=== PATIENT | male | born 1940 | race Two or more races ===

== ENCOUNTER 2018-03-05 21:27 | Inpatient (IN) | payer OTHER ==
[2018-03-05] MEDS ORDERED: SODIUM CHLORIDE 1,000 ML IV STA (22:02)
--- NOTE | 2018-03-05 22:09 | PDOC ---
Attending Attestation - Resident Resident Name: Giovany Blackwell - ED Attending Attestation I have performed the following: I have examined & evaluated the patient, The case was reviewed & discussed with the resident, I agree w/resident's findings & plan, Exceptions are as noted - HPI HPI: 03/05/18 22:07 77-year-old male brought in by ambulance after being found down in his residence. Last known well Monday. His daughter called a neighbor when the pt as not answering the phone pt does not recall what happened - Physicial Exam PE: 03/06/18 02:11 please see physical exam below 03/06/18 02:12 - Medical Decision Making 03/05/18 22:20 77 yo male BIBA with multiple abrasions to b/l knees,feet,face and chin head no scalp lac,left cheek ecchymosis,chin abrasion eyes che eomi dry mucus membranes neck no jvd c spine no c spine tenderness lungs cta b/l cvs [id number] abd flat,nontender ext + clubbing,cool hands and feet,scattered bruising to feet, large abrasions to b/l knees neuro pt is conversant and alert but very weak and has difficulty lifting his legs off the beds,able to hold up both arms with no drift skin scattered abrasions 03/06/18 01:12 ct scan head no acute intracranial pathology,no skull fracture cpk 14,000 rhabo positive troponin probable due to rhabdo, pt receiving hydration ct scan c spine -no fracture 03/06/18 01:24 imp : fall vs syncope /rhabdo ,dehydration/ pt admitted
--- NOTE | 2018-03-05 22:36 | PDOC ---
History of Present Illness - General Stated Complaint: FALL Time Seen by Provider: 03/05/18 21:50 History Source: Patient - History of Present Illness Initial Comments: 03/05/18 22:22 Patient is a 77M with history of HTN, CAD s/p CABG 20 years ago, recent onset of urinary incontinence here today after being found down this evening. Last known well was approximately 48 hours ago. Patient is unsure of what happened, but he was found naked by a neighbor on the floor. The daughter reports that he has been incontinent lately, and that patient likely slipped and fell on some urine. Patient is unable to give a history of why he fell, why he couldn't get up, and why he couldn't contact anyone. Patient does state that he had some pain in his lower abdomen, but that when away. Patient states that he now feels very weak. Endorses pain in his knees. Denies pain in hips. Past History - Past Medical History Allergies/Adverse Reactions: Allergies Allergy/AdvReac Type Severity Reaction Status Date / Time No Known Allergies Allergy Verified 03/05/18 22:47 Review of Systems - Review of Systems Comments:: 03/05/18 22:26 GENERAL/CONSTITUTIONAL: No fever or chills. No weakness. HEAD, EYES, EARS, NOSE AND THROAT: No change in vision. No sore throat. CARDIOVASCULAR: No chest pain or shortness of breath RESPIRATORY: No cough, wheezing, or hemoptysis. GASTROINTESTINAL: No nausea, vomiting, diarrhea or constipation. GENITOURINARY: No dysuria, +incontinence MUSCULOSKELETAL: +b/l knee pain No neck or back pain. SKIN: No rash NEUROLOGIC: No headache, vertigo, loss of consciousness, or change in strength/ sensation. ENDOCRINE: No increased thirst. No abnormal weight change HEMATOLOGIC/LYMPHATIC: No anemia, easy bleeding, or history of blood clots. ALLERGIC/IMMUNOLOGIC: No hives or skin allergy. *Physical Exam - Physical Exam Comments: 03/05/18 22:26 GENERAL: Awake, alert, oriented to self/place/year, does not know president, in no acute distress HEAD: Normocephalic, hematoma under left eye EYES: PERRLA, EOMI, sclera anicteric, conjunctiva clear ENT: Auricles normal inspection, hearing grossly normal, nares patent, oropharynx clear without exudates. Dry mucosa NECK: Normal ROM, supple, no lymphadenopathy, JVD, or masses, no midline tenderness LUNGS: No distress, speaks full sentences, clear to auscultation bilaterally HEART: Regular rate and rhythm, normal S1 and S2, no murmurs, rubs or gallops, peripheral pulses normal and equal bilaterally. ABDOMEN: Soft, nontender, normoactive bowel sounds. No guarding, no rebound. No masses EXTREMITIES: +abrasion over left lateral shoulder, +abrasion over each knee bilaterally. HIPS: No pain to palpation, no signs of trauma R KNEE: Abrasion over knee, ranges knee, tenderness bilaterally, neurovascularly intact distal to injury L KNEE: Abrasion over knee, ranges knee, tenderness bilaterally, neurovascularly intact distal to injury BACK: No midline tenderness, no signs of trauma NEUROLOGICAL: Cranial nerves II through XII grossly intact. Normal speech, no focal sensorimotor deficits SKIN: Warm, Dry, normal turgor, no rashes or lesions noted. ED Treatment Course - LABORATORY CBC & Chemistry Diagram: 03/05/18 23:14 03/05/18 23:14 - RADIOLOGY Radiology Studies Ordered: Category Date Time Status CERVICAL SPINE CT W/O CONTR [CT] Stat CT Scan 03/05/18 22:[address] W/O CONTRAST [CT] Stat CT Scan 03/05/18 22:[address] WITHOUT CONTRAST [CT] Stat CT Scan 03/05/18 22:03 Ordered CHEST X-RAY PORTABLE* [RAD] Stat Radiology 03/05/18 22:02 Ordered KNEE 3 POS-LEFT [RAD] Stat Radiology 03/05/18 22:03 Ordered KNEE 3 POS-RIGHT [RAD] Stat Radiology 03/05/18 22:03 Ordered Medical Decision Making - Medical Decision Making 03/05/18 22:36 Patient is 77M with history of HTN, CAD s/p CABG, urinary incontinence found down. Vitals normal and stable. Minor trauma, cannot definitely clear CT. Takes aspirin, no other blood thinners, cannot clear head. Cause of fall/found down unclear, ddx includes, but is not limited to: syncope, acs, uti, rhabdo. Will do cardiac workup, head/neck/face ct, cxr, ekg, x-rays of knees, admit. 03/05/18 23:04 EKG shows sinus rhythm with rate of 88. 1st degree AV block with DE of 240. LAFB pattern. RBBB pattern with QRS of 122. ST Depression in V3. No st elevations. No prior EKGs available to compare. 03/05/18 23:[address] Patrick, pending labs, imaging results, and admission to hospitalist. *DC/Admit/Observation/Transfer Diagnosis at time of Disposition: Fall - Discharge Dispostion Condition at time of disposition: Stable - Referrals Referrals: Deepthi Coats MD [Primary Care Provider] - - Patient Instructions - Post Discharge Activity
[2018-03-05 23:53] LABS: BASO % 0.2 % (0-2.0); EOS % 0.1 % (0-4.5); HEMATOCRIT 54.5 % (35.4-49); HEMOGLOBIN 17.9 GM/dL (11.7-16.9); LYMPH % 6.1 % (8-40); MCH 30.7 pg (25.7-33.7); MCHC 32.9 g/dl (32.0-35.9); MEAN CELL VOLUME 93.2 fl (80-96); MEAN PLT VOLUME 9.2 fl (7.5-11.1); MONO % 8.9 % (3.8-10.2); NEUT % 84.7 % (42.8-82.8); PLATELET COUNT 162 K/MM3 (134-434); RBC 5.85 M/mm3 (4.00-5.60); RDW 14.6 % (11.9-15.9); WHITE BLOOD COUNT 15.6 K/mm3 (4.0-10.0)
[2018-03-06 00:21] LABS: INR 1.11 (0.83-1.09); PROTHROMBIN TIME (PATIENT) 13.1 SEC (9.7-13.0)
[2018-03-06 00:37] LABS: ALBUMIN 3.9 g/dl (3.4-5.0); ALK PHOS 78 U/L (45-117); ANION GAP 12 MMOL/L (8-16); BLOOD UREA NITROGEN 34 mg/dL (7-18); CALCIUM 9.9 mg/dL (8.5-10.1); CHLORIDE 91 mmol/L (98-107); CO2 29 mmol/L (21-32); CREATININE 0.9 mg/dL (0.55-1.3); GLUCOSE,RANDOM 125 mg/dL (74-106); POTASSIUM 4.8 mmol/L (3.5-5.1); SGOT/AST 564 U/L (15-37); SGPT/ALT 89 U/L (13-61); SODIUM 131 mmol/L (136-145); TOT PROT 7.3 g/dl (6.4-8.2)
[2018-03-06] MEDS ORDERED: SODIUM CHLORIDE 1,000 ML IV STA (00:42)
[2018-03-06] MEDS ORDERED: ACETAMINOPHEN 1000 MG/100 ML VIAL (NON FORMULARY) IVPB ONE (01:54)
[2018-03-06 02:01] LABS: URINE APPEARANCE CLEAR; URINE BILIRUBIN NEGATIVE (<2.0 mg/dL); URINE COLOR YELLOW; URINE GLUCOSE (UA) NEGATIVE (NEGATIVE); URINE KETONE TRACE (NEGATIVE); URINE LEUK ESTERASE NEGATIVE (NEGATIVE); URINE NITRITE NEGATIVE (NEGATIVE); URINE PROTEIN 3+ (NEGATIVE); URINE UROBILINOGEN NEGATIVE mg/dL (0.2-1.0)
[2018-03-06] MEDS ORDERED: ACETAMINOPHEN INJECTION 100 ML IVPB ONE (02:03)
[2018-03-06 02:05] LABS: EPI CELLS RARE /HPF (FEW); URINE BACTERIA RARE /hpf (NONE SEEN); URINE HYALINE CAST 7 /lpf; URINE MUCUS RARE
--- NOTE | 2018-03-06 02:17 | PDOC ---
*Physical Exam - Vital Signs Last Vital Signs Temp Pulse Resp BP Pulse Ox 98.3 F 70 17 117/83 98 03/05/18 23:00 03/05/18 23:00 03/05/18 23:00 03/05/18 23:00 03/06/18 00:00 - Physical Exam Comments: 03/06/18 03:50 General Appearance: Nourished. No Apparent Distress HEENT: EOMI, AASHISH. Hematoma under the left eye. No Pharyngeal Erythema, Tonsillar Exudate, Tonsillar Erythema Neck: No Cervical Lymphadenopathy Respiratory/Chest: Lungs Clear, Normal Breath Sounds. No Crackles, Rales, Rhonchi, Wheezing Cardiovascular: Regular Rhythm, Regular Rate. No Murmur, Gallops, Rubs Gastrointestinal/Abdominal: Normal Bowel Sounds, Soft. No Guarding, Rebound, Tenderness Musculoskeletal: No CVA Tenderness Extremity: Multiple abrasions to the extremities noted. Normal Capillary Refill Integumentary: Normal Color, Dry, Warm Neurologic: manager costing II-XII NML intact, Fully Oriented, Alert, Normal Mood/Affect, Normal Response, ED Treatment Course - LABORATORY CBC & Chemistry Diagram: 03/05/18 23:14 03/05/18 23:14 - ADDITIONAL ORDERS Additional order review: Laboratory Results 03/06/18 03/05/18 03/05/18 01:44 23:14 23:14 PT with INR 13.10 H INR 1.11 H Sodium 131 L Potassium 4.8 Chloride 91 L Carbon Dioxide 29 Anion Gap 12 BUN 34 H Creatinine 0.9 Creat Clearance w eGFR > 60 Random Glucose 125 H Calcium 9.9 Magnesium 3.0 H Total Bilirubin 2.0 H AST 564 H ALT 89 H Alkaline Phosphatase 78 Creatine Kinase 17751 H Creatine Kinase Index 0.6 CK-MB (CK-2) 126 H Troponin I 0.64 H* Total Protein 7.3 Albumin 3.9 Urine Color Yellow Urine Appearance Clear Urine pH 5.0 Ur Specific [place] 1.020 Urine Protein 3+ H Urine Glucose (UA) Negative Urine Ketones Trace H Urine Blood 3+ H Urine Nitrite Negative Urine Bilirubin Negative Urine Urobilinogen Negative Ur Leukocyte Esterase Negative Urine WBC (Auto) 15 Urine RBC (Auto) 2 Ur Epithelial Cells Rare Urine Bacteria Rare Hyaline Casts 7 Urine Mucus Rare 03/05/18 23:14 RBC 5.85 H MCV 93.2 MCHC 32.9 RDW 14.6 MPV 9.2 Neutrophils % 84.7 H Lymphocytes % 6.1 L Monocytes % 8.9 Eosinophils % 0.1 Basophils % 0.2 - Medications Given in the ED: ED Medications Discontinued Medications Generic Name Dose Route Start Last Admin Trade Name Trisha PRN Reason Stop Dose Admin Acetaminophen 1,000 mg 03/06/18 01:54 03/06/18 02:10 Ofirmev Injection - IVPB 03/06/18 01:55 1,000 mg ONCE ONE Administration Sodium Chloride 1,000 mls @ 1,000 mls/hr 03/05/18 22:02 03/05/18 23:00 Normal Saline - IV 03/05/18 23:01 1,000 mls/hr ASDIR STA Administration Progress Note - Progress Note Progress Note: The patient is a 77 year old male who presents for evaluation following being found on the floor after a fall. Lab results and CT imaging are pending. Likely admission. Medical Decision Making - Medical Decision Making 03/06/18 03:52 CBC demonstrates an elevated wbc to 15. [place] [address]. Troponin is elevated to 0.6. It is likely the patient has rhabdomyolysis and will require admission for further management. We will continue to treat with iv fluids. We discussed the case with the admitting team who accepted the patient for admission. *DC/Admit/Observation/Transfer Diagnosis at time of Disposition: Fall - Discharge Dispostion Condition at time of disposition: Stable Decision to Admit order: Yes - Referrals - Patient Instructions - Post Discharge Activity
--- NOTE | 2018-03-06 03:43 | HP ---
CHIEF COMPLAINT: Fall PCP: HISTORY OF PRESENT ILLNESS: Patient is a 77 year old male with history of hypertension, coronary artery disease s/p CABG in 1989, hyperlipidemia, diabetes mellitus presents after a fall. He states he was in the bathroom, having got out of the shower, felt hip pain radiating to the back, and b/l lower extremity weakness. He tried to hold on to the wall, and slid down onto the floor where he states he remained for two days until he was able to crawl to kitchen, prop himself up with the refrigerator door handle, and call 911. He denies prior occurrence of a fall. Admitted to a "light" chest pain that prompted him to reach for an aspirin and "medicine under the tongue." Denies lightheadedness, dizziness, palpitations preceding the fall. According to EMS the patient's neighbor who has keys to his house was the one to call 911. States last well known time was yesterday evening at dinnertime. ER course was notable for: (1) EKG sinus rhythm at 88bpm, LAD, 1st degree AV guillermo, RBBB. Troponin 0.64 (2) [place] [address] (3) IV normal saline PAST MEDICAL HISTORY: hypertension, coronary artery disease s/p CABG in 1989, hyperlipidemia, diabetes mellitus PAST SURGICAL HISTORY: CABG 1989 Social History: Smoking: former smoker Alcohol: denies Drugs: denies Family History: Allergies No Known Allergies Allergy (Verified 03/05/18 22:47) HOME MEDICATIONS: Home Medications Medication Instructions Recorded Ascorbic Acid [Vitamin C -] 1,000 mg PO DAILY 03/06/18 Aspirin [ASA -] 81 mg PO DAILY 03/06/18 Cholecalciferol (Vitamin D3) 2,000 unit PO DAILY 03/06/18 [Vitamin D3 -] Dorzolamide/Timolol/Pf [Timolol 10 ml OP DAILY 03/06/18 0.5%-Dorzolamide 2%] Lisinopril [Prinivil -] 40 mg PO DAILY 03/06/18 Metformin HCl [Metformin HCl ER] 500 mg PO DAILY 03/06/18 Metoprolol Succinate [Toprol Xl] 25 mg PO DAILY 03/06/18 Pravastatin Sodium 10 mg PO DAILY 03/06/18 Vitamin B-12 500 mcg PO DAILY 03/06/18 REVIEW OF SYSTEMS CONSTITUTIONAL: Absent: fever, chills, diaphoresis, generalized weakness, malaise, loss of appetite, weight change HEENT: Absent: rhinorrhea, nasal congestion, throat pain, throat swelling, difficulty swallowing, mouth swelling, ear pain, eye pain, visual changes CARDIOVASCULAR: Absent: chest pain, syncope, palpitations, irregular heart rate, lightheadedness , peripheral edema RESPIRATORY: Absent: cough, shortness of breath, dyspnea with exertion, orthopnea, wheezing, stridor, hemoptysis GASTROINTESTINAL: Absent: abdominal pain, abdominal distension, nausea, vomiting, diarrhea, constipation, melena, hematochezia GENITOURINARY: Absent: dysuria, frequency, urgency, hesitancy, hematuria, flank pain, genital pain MUSCULOSKELETAL: Admits: back pain, hip pain, knee pain. SKIN: Absent: rash, itching, pallor HEMATOLOGIC/IMMUNOLOGIC: Absent: easy bleeding, easy bruising, lymphadenopathy, frequent infections ENDOCRINE: Absent: unexplained weight gain, unexplained weight loss, heat intolerance, cold intolerance NEUROLOGIC: Admits: lower extremity weakness. Absent: headache, paresthesias, dizziness, unsteady gait, seizure, mental status changes, bladder or bowel incontinence PSYCHIATRIC: Absent: anxiety, depression, suicidal or homicidal ideation, hallucinations. PHYSICAL EXAMINATION Vital Signs - 24 hr 03/05/18 03/06/18 23:00 00:00 Temperature 98.3 F Pulse Rate 70 Respiratory 17 Rate Blood Pressure 117/83 O2 Sat by Pulse 98 98 Oximetry (%) GENERAL: Awake, alert, oriented to person, place, time in no acute distress. HEAD: Normocephalic. Bruising noted over left cheek. EYES: Pupils equal, round and reactive to light, extraocular movements intact without nystagmus b/l. sclera anicteric, conjunctiva clear b/l. EARS, NOSE, THROAT: Dry mucous membranes. Thrush noted on tongue. NECK: Supple without lymphadenopathy, JVD. LUNGS: Breath sounds equal, clear to auscultation bilaterally. No wheezes, and no crackles. No accessory muscle use. HEART: Regular rate and rhythm, normal S1 and S2 without murmur, rub or gallop. ABDOMEN: Soft, nontender, not distended, normoactive bowel sounds, no guarding, no rebound, no masses. No hepatomegaly or splenomegaly. MUSCULOSKELETAL: Diminished range of motion at b/l lower extremities. Tenderness to palpation b/l knees. No bony step-off or point tenderness along cervical thoracic, or lumbar spine. Painful passive knee flexion, extension b/ l. UPPER EXTREMITIES: 2+ radial pulses b/l. Strength 4/5 b/l upper extremities in flexion, extension, abduction, adduction. LOWER EXTREMITIES: 2+ dorsalis pedis pulses b/l. No calf tenderness. No peripheral edema. Strength 1/5 left lower extremity, strength 2/5 right lower extremity for hip flexion, extension, knee flexion, extension. NEUROLOGICAL: Cranial nerves II-XII intact. Normal speech. PSYCHIATRIC: Cooperative. Good eye contact. Appropriate mood and affect. SKIN: Bruising and scratches along b/l medial knees. Laboratory Results - last 24 hr 03/05/18 03/05/18 03/05/18 23:14 23:14 23:14 WBC 15.6 H RBC 5.85 H Hgb 17.9 H Hct 54.5 H MCV 93.2 MCH 30.7 MCHC 32.9 RDW 14.6 Plt Count 162 MPV 9.2 Absolute Neuts (auto) 13.2 H Neutrophils % 84.7 H Lymphocytes % 6.1 L Monocytes % 8.9 Eosinophils % 0.1 Basophils % 0.2 Nucleated RBC % 0 PT with INR 13.10 H INR 1.11 H Sodium 131 L Potassium 4.8 Chloride 91 L Carbon Dioxide 29 Anion Gap 12 BUN 34 H Creatinine 0.9 Creat Clearance w eGFR > 60 Random Glucose 125 H Calcium 9.9 Magnesium 3.0 H Total Bilirubin 2.0 H AST 564 H ALT 89 H Alkaline Phosphatase 78 Creatine Kinase 81825 H Creatine Kinase Index 0.6 CK-MB (CK-2) 126 H Troponin I 0.64 H* Total Protein 7.3 Albumin 3.9 Urine Color Urine Appearance Urine pH Ur Specific [place] Urine Protein Urine Glucose (UA) Urine Ketones Urine Blood Urine Nitrite Urine Bilirubin Urine Urobilinogen Ur Leukocyte Esterase Urine WBC (Auto) Urine RBC (Auto) Ur Epithelial Cells Urine Bacteria Hyaline Casts Urine Mucus 03/05/18 03/06/18 23:14 01:44 WBC RBC Hgb Hct MCV MCH MCHC RDW Plt Count MPV Absolute Neuts (auto) Neutrophils % Lymphocytes % Monocytes % Eosinophils % Basophils % Nucleated RBC % PT with INR INR Sodium Potassium Chloride Carbon Dioxide Anion Gap BUN Creatinine Creat Clearance w eGFR Random Glucose Calcium Magnesium Total Bilirubin AST ALT Alkaline Phosphatase Creatine Kinase Creatine Kinase Index 0.6 CK-MB (CK-2) 126 H Troponin I Total Protein Albumin Urine Color Yellow Urine Appearance Clear Urine pH 5.0 Ur Specific [place] 1.020 Urine Protein 3+ H Urine Glucose (UA) Negative Urine Ketones Trace H Urine Blood 3+ H Urine Nitrite Negative Urine Bilirubin Negative Urine Urobilinogen Negative Ur Leukocyte Esterase Negative Urine WBC (Auto) 15 Urine RBC (Auto) 2 Ur Epithelial Cells Rare Urine Bacteria Rare Hyaline Casts 7 Urine Mucus Rare IMAGING: CT head- negative for acute intracranial hemorrhage CT cervical spine- negative for cervical spine fracure Facial CT- negative for fracture within facial bones ASSESSMENT/PLAN: Patient is a 77 year old male with history of hypertension, coronary artery disease s/p CABG in 1989, hyperlipidemia, diabetes mellitus presents after a fall. Rhabdomyolysis -Patient is s/[place] [address] -UA shows 3+ blood, however only 2 RBC, likely d/t myoglobin. -Polycythemia, leukocytosis likely due to dehydration, secondary to rhabdomyolysis -IV normal saline at 150mL/hour -Strict intake and output -F/U urine myoglobin -F/U creatine kinase Q6H -F/U CMP Q12H Syncopal episode -Unclear etiology. Patient endorsed hip pain radiating to lower back at time of weakness and fall. -F/U xray b/l knees -F/U radiograph b/l hips -Physical therapy consult -Can consider carotid doppler Chest pain, troponinemia -Likely demand ischemia vs. acute coronary syndrome -EKG showed sinus rhythm at 88bpm, LAD, 1st degree AV guillermo with RI interval at 240, RBBB. -Troponin 0.64 CK-MB 126 -Trend cardiac profile -Cardiac ECHO -Cardiology consult Dr. Hoffmann -Cardiac monitoring Transaminitis -AST 564, ALT 89, Alkaline phosphatsae 78. -AST elevation likely secondary to rhabdomyolysis. -F/U RUQ ultrasound -F/U CMP, direct and indirect bilirubin -F/U lipase Coronary artery disease -Continue aspirin 81mg PO daily Diabetes mellitus -Hold home oral medications -ISS ACHS -BGM ACHS -F/U HbA1c Hyperlipidemia -Hold statins d/t rhabdomyolysis Hypertension -Continue Metoprolol 25mg PO daily FEN -IV normal saline at 150mL/hour -Hyponatremia. Follow CMP -Diabetic diet Prophylaxis -Heparin 5000u subq TID Disposition -Admit to telemetry for care Visit type - Emergency Visit Emergency Visit: Yes ED Registration Date: 03/06/18 Care time: The patient presented to the Emergency Department on the above date and was hospitalized for further evaluation of their emergent condition. - New Patient This patient is new to me today: Yes Date on this admission: 03/06/18 - Critical Care Critical Care patient: No
--- NOTE | 2018-03-06 04:03 | PN ---
Teaching Attending Note Name of Resident: Constanza Woo ATTENDING PHYSICIAN STATEMENT I saw and evaluated the patient. I reviewed the resident's note and discussed the case with the resident. I agree with the resident's findings and plan as documented. SUBJECTIVE: Patient s a 77 y/o HM with a PMH as stated who presents to the hospital after being down on the floor. He provides a different history than we got from EMS; EMS states that he was last seen normal last night and was found this afternoon prior to coming to the ER down at home by his neighbor who had a smith to his place. The patient, however, tells me that he was down for 2 days and that he pulled himself up and called himself; he also relays an unclear history of taking an aspirin and a "medication that goes under his tongue". He is AAO and doesn't appear acutely confused. He has red urine. He has elevated LFTs, elevated CK >958[address]. He complains of weakness. The method of his fall is described as hip pain radiating up through his back causing him to loose balance and slide down a wall bracing himself with his R-side. He denies losing consciousness or hitting his head. He denied any chest pain to me, but he did admit to it to the resident on their initial assessment. Still complains of some hip pain worse with moving. PMH: CAD s/p remote CABG, HTN, HLD, DM PSH: CABG Social: Lives at home, gets help from neighbor who has smith, denies EtOh FH: Asked and noncontributory OBJECTIVE: VSS, labs and imaging reviewed NAD, resting in bed, tacky MMs RRR s1/2 no mgr NT ND neg. calero's sign no HSM Sym CW expansion, no focal findings Some abrasions and bruising scattered, no naren lacs or mottling ASSESSMENT AND PLAN: 1) Acute Rhabdomyolysis -Secondary to his fall; was down for >12 but <24 hours; will need to speak with likely neighbor vs. family to get the whole story. -Got 2L bolus in the ER; set NS to 150 and monitor Is and Os trying to make I= O. Trend CK Q6H; trend CMP BID. Check Urine Mb. -No renal compromise now. -Hold statin 2) ?chest pain? with elevated troponin -Elevated trop likely due to #1 and demand from this process, but given the ? history of chest pain will need further analysis -Monitor troponin, monitor telemetry. I doubt that this represents a primary ischemic event. Will defer ultimate management to cardiology; if their services are deemed necessary will consult in the morning 3) Weakness and Fall with Hip Pain -Negative knee XR, checking hip XR -Consulting PT 4) Transaminitis -AST/ALT grossly elevated (AST moreso). This is likely secondary to rhabdo, and literature shows AST is more profoundly elevated in rhabdo than ALT. Plan on fractionating the bili, trending the CMP, checking RUQ US. Will also add on a lipase. 5) Hyponatremia -Likely 2/2 dehydration and rhabdo; trend CMP and giving IVF for #1. No neuro s /s with this. 6) Hypermagnesemia -Due to #1/dehydration. Trend Mg. Weakness may have some contribution from high Mg. 7) Syncope/syncope-like event -The way he described it to me he had pain resulting in temporary weakness which lead him to fall down. No rotational motion noted, no focal neuro signs, no tinnitus, no confusion, no seizure like activity. No high degree AV block seen on EKG. Will monitor on tele, check an echo. No repeated sx. assciated with neck motion so can hold off for now with carotid duplex but it should be a consideration if this keeps happening. Check XR hip to ensure no underlying bony pathology. 8) CAD s/p remote CABG -Continue home medications except statin 9) HLD -Hold statin until DC 10) HTN -Confirm meds; monitor and keep <160mmHg while inpatient. 11) DM -SSI; resume home meds prior to DC FENA -NS@150 -Monitor and replete PRN -Cardiac, diabetic -As tolerated Full Code
[2018-03-06] MEDS: SODIUM CHLORIDE 1,000 ML IV SCH ×2 (04:27→18:41)
[2018-03-06] MEDS ORDERED: HEPARIN NA (PORCINE) 5,000 UNITS/ML 1ML VIAL ONE (06:05)
[2018-03-06] MEDS: HEPARIN NA (PORCINE) 5,000 UNITS/ML 1ML VIAL SQ SCH ×3 (06:17→21:12)
[2018-03-06] MEDS: INSULIN SLIDING SCALE (NOVOLOG) 1 VIAL SQ SCH ×3 (06:17→21:27)
[2018-03-06 06:18] LABS: HEMATOCRIT 49.1 % (35.4-49); HEMOGLOBIN 16.1 GM/dL (11.7-16.9); MCH 30.6 pg (25.7-33.7); MCHC 32.8 g/dl (32.0-35.9); MEAN CELL VOLUME 93.3 fl (80-96); MEAN PLT VOLUME 9.2 fl (7.5-11.1); PLATELET COUNT 134 K/MM3 (134-434); RBC 5.26 M/mm3 (4.00-5.60); RDW 14.4 % (11.9-15.9); WHITE BLOOD COUNT 12.6 K/mm3 (4.0-10.0)
[2018-03-06 06:50] LABS: ALBUMIN 3.4 g/dl (3.4-5.0); ALK PHOS 70 U/L (45-117); ANION GAP 11 MMOL/L (8-16); BLOOD UREA NITROGEN 32 mg/dL (7-18); CALCIUM 8.7 mg/dL (8.5-10.1); CHLORIDE 97 mmol/L (98-107); CO2 25 mmol/L (21-32); CREATININE 0.7 mg/dL (0.55-1.3); GLUCOSE,RANDOM 103 mg/dL (74-106); MAGNESIUM 2.6 mg/dL (1.8-2.4); PHOSPHOROUS 3.5 mg/dL (2.5-4.9); SGOT/AST 467 U/L (15-37); SGPT/ALT 78 U/L (13-61); SODIUM 133 mmol/L (136-145); TOT PROT 6.3 g/dl (6.4-8.2)
[2018-03-06 06:51] LABS: BILIRUBIN,DIRECT 0.5 mg/dL (0.0-0.2)
[2018-03-06 06:56] LABS: POTASSIUM 4.4 mmol/L (3.5-5.1)
[2018-03-06] MEDS ORDERED: PATIENT'S OWN MEDICATION (NON-FORMULARY) (Dorzolamide/Timolol/Pf [Timolol 0.5%-Dorzolamide OP SCH (10:00)
[2018-03-06] MEDS: ASPIRIN 81 MG CHEWABLE TABLETS PO SCH (10:08)
[2018-03-06] MEDS: TIMOLOL 0.5% OPHTHALMIC SOL 5 ML BOTTLE OU SCH (10:08)
[2018-03-06] MEDS: metoPROLOL SUCCINATE 25 MG TAB.SR.24H (FP) PO SCH (10:08)
[2018-03-06] MEDS: DORZOLAMIDE 2% HCL OPHTHALMIC SOLUTION 10 ML BOTTLE OU SCH (10:09)
--- NOTE | 2018-03-06 11:46 | ECHO ---
Name: JUDITH PATEL Exam:Adult Echocardiogram Study Date: 03/06/2018 09:48 AM Age: 77 yrs Reason For Study: Chest pain Height: 64 in Weight: 145 lb BSA: 1.7 m2 MMode/2D Measurements & Calculations IVSd: 1.1 cm Ao root diam: 3.1 cm LVIDd: 3.0 cm LVIDs: 2.2 cm LVPWd: 1.1 cm EDV(Teich): 35.2 ml LVOT diam: 1.8 cm ESV(Teich): 16.0 ml RV S Lj: 7.4 cm/sec Doppler Measurements & Calculations PI end-d lj: 167.5 cm/sec Med Peak E' Lj: 6.3 cm/sec Lat Peak E' Lj: 10.6 cm/sec Procedure A two-dimensional transthoracic echocardiogram with color flow and Doppler was performed. The study w as technically difficult with many images being suboptimal in quality. The patient was in atrial flutter during the exam. Left Ventricle The left ventricle is normal in size. Left ventricular systolic function is normal. Ejection Fraction = 55%. Right Ventricle The right ventricle is grossly normal size. The right ventricular systolic function is grossly normal . Atria The left atrium is mildly dilated. The right atrium is mildly dilated. Mitral Valve The mitral valve is normal. There is trace mitral regurgitation. Tricuspid Valve The tricuspid valve is normal. There is trace tricuspid regurgitation. Aortic Valve The aortic valve opens well. The aortic valve is not well visualized. Mild aortic regurgitation. Pulmonic Valve The pulmonic valve is not well seen, but is grossly normal. Trace pulmonic valvular regurgitation. Great Vessels The aortic root is not well visualized but is probably normal size. Pericardium/Pleura There is no pericardial effusion. Interpretation Summary Left ventricular systolic function is normal. The right ventricular systolic function is grossly normal. The left atrium is mildly dilated. The right atrium is mildly dilated. There is trace mitral regurgitation. There is trace tricuspid regurgitation. Mild aortic regurgitation. Trace pulmonic valvular regurgitation. There is no pericardial effusion. MD Crescencio Jefferson 03/06/2018 11:46 AM
--- NOTE | 2018-03-06 12:51 | EKG ---
Test Reason : Blood Pressure : / mmHG Vent. Rate : 088 BPM Atrial Rate : 088 BPM P-R Int : 240 ms QRS Dur : 122 ms QT Int : 400 ms P-R-T Axes : 000 -76 047 degrees QTc Int : 484 ms SINUS RHYTHM WITH 1ST DEGREE A-V BLOCK WITH PREMATURE SUPRAVENTRICULAR COMPLEXES RIGHT BUNDLE BRANCH BLOCK LEFT ANTERIOR FASCICULAR BLOCK BIFASCICULAR BLOCK SEPTAL INFARCT (CITED ON OR BEFORE 05-MAR-2018) ABNORMAL ECG Confirmed by MD ARIE, SIDDHARTHA ([id number]) on 03/06/2018 12:51:08 PM Referred By: Confirmed By:SIDDHARTHA SARGENT MD
--- NOTE | 2018-03-06 14:57 | PN ---
Teaching Attending Note Name of Resident: Sedrick Naidu ATTENDING PHYSICIAN STATEMENT I saw and evaluated the patient. I reviewed the resident's note and discussed the case with the resident. I agree with the resident's findings and plan as documented with exceptions below. SUBJECTIVE: Patient seen and examined. generalized soreness, more left thigh, reports fall on his left thigh. Currently denies any chest pain, dizziness, palpitations, headache or concerns. OBJECTIVE: Vital Signs Period Temp Pulse Resp BP Sys/Becerril Pulse Ox Last 24 Hr 98.3 F 68-76 17-18 117-141/68-83 98-100 Intake & Output 03/03/18 03/04/18 03/05/18 03/06/18 23:59 23:59 23:59 23:59 Weight 145 lb General: lying in bed in no acute distress HEENT: chin abrasion, PERRL, EOMI, Neck: soft, supple, no JVD Extremities: bilateral knee abrasions, no pedal edema, positive pulses Musculoskeletal: no spinal tenderness, able to move bilateral feet without pain , bilateral LE movements free in bed, but elevation limited given left thigh pain, no left thigh tenderness or ecchymosis noted, passive ROM full at both hips Neuro: AAOX3, power UE 5/5, LE, feet 5/5, thigh movements limited by pain L>R, facial symmetry, tongue midline, gait deferred Home Medications Medication Instructions Recorded Ascorbic Acid [Vitamin C -] 1,000 mg PO DAILY 03/06/18 Aspirin [ASA -] 81 mg PO DAILY 03/06/18 Cholecalciferol (Vitamin D3) 2,000 unit PO DAILY 03/06/18 [Vitamin D3 -] Dorzolamide/Timolol/Pf [Timolol 10 ml OP DAILY 03/06/18 0.5%-Dorzolamide 2%] Lisinopril [Prinivil -] 40 mg PO DAILY 03/06/18 Metformin HCl [Metformin HCl ER] 500 mg PO DAILY 03/06/18 Metoprolol Succinate [Toprol Xl] 25 mg PO DAILY 03/06/18 RX: Pravastatin Sodium 10 mg PO DAILY 03/06/18 Vitamin B-12 500 mcg PO DAILY 03/06/18 Active Medications Aspirin (Asa -) 81 mg PO DAILY [facility] Last Admin: 03/06/18 10:08 Dose: 81 mg Dorzolamide HCl (Trusopt 2%) 1 drop OU DAILY [facility] Last Admin: 03/06/18 10:09 Dose: Not Given Heparin Sodium (Porcine) (Heparin -) 5,000 unit SQ TID [facility] Last Admin: 03/06/18 14:40 Dose: 5,000 unit Sodium Chloride (Normal Saline -) 1,000 mls @ 150 mls/hr IV ASDIR [facility] Last Admin: 03/06/18 04:27 Dose: 150 mls/hr Insulin Aspart (Novolog Vial Sliding Scale -) 1 vial SQ ACHS [facility]; Protocol Last Admin: 03/06/18 13:12 Dose: Not Given Metoprolol Succinate (Toprol Xl -) 25 mg PO DAILY [facility] Last Admin: 03/06/18 10:08 Dose: 25 mg Timolol Maleate (Timoptic 0.5%) 1 drop OU DAILY [facility] Last Admin: 03/06/18 10:08 Dose: Not Given Laboratory Results - last 24 hr 03/05/18 03/05/18 03/05/18 23:14 23:14 23:14 WBC 15.6 H RBC 5.85 H Hgb 17.9 H Hct 54.5 H MCV 93.2 MCH 30.7 MCHC 32.9 RDW 14.6 Plt Count 162 MPV 9.2 Absolute Neuts (auto) 13.2 H Neutrophils % 84.7 H Lymphocytes % 6.1 L Monocytes % 8.9 Eosinophils % 0.1 Basophils % 0.2 Nucleated RBC % 0 PT with INR 13.10 H INR 1.11 H Sodium 131 L Potassium 4.8 Chloride 91 L Carbon Dioxide 29 Anion Gap 12 BUN 34 H Creatinine 0.9 Creat Clearance w eGFR > 60 POC Glucometer Random Glucose 125 H Hemoglobin A1c % Calcium 9.9 Phosphorus Magnesium 3.0 H Total Bilirubin 2.0 H Direct Bilirubin AST 564 H ALT 89 H Alkaline Phosphatase 78 Creatine Kinase 35471 H Creatine Kinase Index 0.6 CK-MB (CK-2) 126 H Troponin I 0.64 H* Total Protein 7.3 Albumin 3.9 Lipase Urine Color Urine Appearance Urine pH Ur Specific [place] Urine Protein Urine Glucose (UA) Urine Ketones Urine Blood Urine Nitrite Urine Bilirubin Urine Urobilinogen Ur Leukocyte Esterase Urine WBC (Auto) Urine RBC (Auto) Ur Epithelial Cells Urine Bacteria Hyaline Casts Urine Mucus 03/05/18 03/06/18 03/06/18 23:14 01:44 02:01 WBC RBC Hgb Hct MCV MCH MCHC RDW Plt Count MPV Absolute Neuts (auto) Neutrophils % Lymphocytes % Monocytes % Eosinophils % Basophils % Nucleated RBC % PT with INR INR Sodium Potassium Chloride Carbon Dioxide Anion Gap BUN Creatinine Creat Clearance w eGFR POC Glucometer Random Glucose Hemoglobin A1c % Calcium Phosphorus 3.4 Magnesium Total Bilirubin Direct Bilirubin AST ALT Alkaline Phosphatase Creatine Kinase Creatine Kinase Index 0.6 CK-MB (CK-2) 126 H Troponin I Total Protein Albumin Lipase Urine Color Yellow Urine Appearance Clear Urine pH 5.0 Ur Specific [place] 1.020 Urine Protein 3+ H Urine Glucose (UA) Negative Urine Ketones Trace H Urine Blood 3+ H Urine Nitrite Negative Urine Bilirubin Negative Urine Urobilinogen Negative Ur Leukocyte Esterase Negative Urine WBC (Auto) 15 Urine RBC (Auto) 2 Ur Epithelial Cells Rare Urine Bacteria Rare Hyaline Casts 7 Urine Mucus Rare 03/06/18 03/06/18 03/06/18 06:00 06:00 06:00 WBC 12.6 H RBC 5.26 Hgb 16.1 Hct 49.1 H MCV 93.3 MCH 30.6 MCHC 32.8 RDW 14.4 Plt Count 134 MPV 9.2 Absolute Neuts (auto) Neutrophils % Lymphocytes % Monocytes % Eosinophils % Basophils % Nucleated RBC % PT with INR INR Sodium 133 L Potassium 4.4 Chloride 97 L Carbon Dioxide 25 Anion Gap 11 BUN 32 H Creatinine 0.7 Creat Clearance w eGFR > 60 POC Glucometer Random Glucose 103 Hemoglobin A1c % Calcium 8.7 Phosphorus 3.5 Magnesium 2.6 H Total Bilirubin 2.0 H Direct Bilirubin AST 467 H ALT 78 H Alkaline Phosphatase 70 Creatine Kinase 25477 H Creatine Kinase Index 0.3 CK-MB (CK-2) 77.3 H Troponin I 0.67 H* Total Protein 6.3 L Albumin 3.4 Lipase Urine Color Urine Appearance Urine pH Ur Specific [place] Urine Protein Urine Glucose (UA) Urine Ketones Urine Blood Urine Nitrite Urine Bilirubin Urine Urobilinogen Ur Leukocyte Esterase Urine WBC (Auto) Urine RBC (Auto) Ur Epithelial Cells Urine Bacteria Hyaline Casts Urine Mucus 03/06/18 03/06/18 03/06/18 06:00 06:00 06:00 WBC RBC Hgb Hct MCV MCH MCHC RDW Plt Count MPV Absolute Neuts (auto) Neutrophils % Lymphocytes % Monocytes % Eosinophils % Basophils % Nucleated RBC % PT with INR INR Sodium Potassium Chloride Carbon Dioxide Anion Gap BUN Creatinine Creat Clearance w eGFR POC Glucometer Random Glucose Hemoglobin A1c % 6.4 H Calcium Phosphorus Magnesium Total Bilirubin Direct Bilirubin 0.5 H AST ALT Alkaline Phosphatase Creatine Kinase Cancelled Creatine Kinase Index Cancelled CK-MB (CK-2) Cancelled Troponin I Total Protein Albumin Lipase 267 Urine Color Urine Appearance Urine pH Ur Specific [place] Urine Protein Urine Glucose (UA) Urine Ketones Urine Blood Urine Nitrite Urine Bilirubin Urine Urobilinogen Ur Leukocyte Esterase Urine WBC (Auto) Urine RBC (Auto) Ur Epithelial Cells Urine Bacteria Hyaline Casts Urine Mucus 03/06/18 03/06/18 03/06/18 06:15 12:50 13:11 WBC RBC Hgb Hct MCV MCH MCHC RDW Plt Count MPV Absolute Neuts (auto) Neutrophils % Lymphocytes % Monocytes % Eosinophils % Basophils % Nucleated RBC % PT with INR INR Sodium Potassium Chloride Carbon Dioxide Anion Gap BUN Creatinine Creat Clearance w eGFR POC Glucometer 107.56967 104.39599 Random Glucose Hemoglobin A1c % Calcium Phosphorus Magnesium Total Bilirubin Direct Bilirubin AST ALT Alkaline Phosphatase Creatine Kinase 81124 H Creatine Kinase Index 0.4 CK-MB (CK-2) 53.4 H Troponin I Total Protein Albumin Lipase Urine Color Urine Appearance Urine pH Ur Specific [place] Urine Protein Urine Glucose (UA) Urine Ketones Urine Blood Urine Nitrite Urine Bilirubin Urine Urobilinogen Ur Leukocyte Esterase Urine WBC (Auto) Urine RBC (Auto) Ur Epithelial Cells Urine Bacteria Hyaline Casts Urine Mucus CXR/CT brain/C-spine/face/Hip/knee xrays results noted. ASSESSMENT AND PLAN: 77 yom with PMHx of CAD s/p CABG 1989, HTN, HLD, NIDDM, brought in ED after mechanical fall, being on the floor for 2 days. -Mechanical -Rhabdomyolysis from being on the floor for 2 days -Left thigh pain, suspect soft tissue injury, current exam and imaging not concerning for acute fracture -Multiple abrasions chin/knees/extremities -Elevated troponin, demand from above vs from significant rhabdomyolysis -HTN -HLD -CAD s/p CABG 1989 Plan: trauma w/u neg. PT eval and further imaging based on clinical course and activity level. Aggressive IVF, monitor CPK, renal function and volume status. Hold statin. Hold lisinopril, resume in 24 hours based on renal function, BP readings. Cardiology input. Check 2D echo. Trop overall unchanged Wound care for abrasions Fall precautions. DVTPPX with heparin. Dispo anticipate SNF on d,c in 2-3 days if CPK improves and no new concerns. Plan discussed with patient in detail, all questions answered.
--- NOTE | 2018-03-06 17:05 | CON.CARD ---
Consult Consult Specialty:: cardio - History of Present Illness Chief Complaint: fall History of Present Illness: 77 M here with mechanical fall. pt provides the following history: he recalls that he got out of the shower, when felt pain in bilateral hip regions. DENIES ANY BACK PAIN. the pain was NOT SEVERE, but both legs "felt ", completely numb and weak. He tried to hold on to the wall, and slid down onto the floor where he states he remained for two days until he was able to crawl to kitchen, prop himself up with the refrigerator door handle, and call 911. recalls trying to get up from floor but each time he did his legs felt weak and he fell back down. states that at no time did he have back pain or "tearing" sensation in abdomen, back or chest. says this location and quality of the pain in hips is different from usual spinal stenosis L spine pain he has. he currently can move both legs/feet and sensation feels intact he says. 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 denies any further cp here in hospital. no sob. noted to have very hi CPK and mildly elevated troponin here PMH: s/p CABG 1989, ? chronic anginal sx (equivocal sx's) HTN HPL - Smoking History Smoking history: Never smoked Home Medications - Allergies Allergies/Adverse Reactions: Allergies Allergy/AdvReac Type Severity Reaction Status Date / Time No Known Allergies Allergy Verified 03/05/18 22:47 - Home Medications Home Medications: Ambulatory Orders Ascorbic Acid [Vitamin C -] 1,000 mg PO DAILY 03/06/18 Aspirin [ASA -] 81 mg PO DAILY 03/06/18 Cholecalciferol (Vitamin D3) [Vitamin D3 -] 2,000 unit PO DAILY 03/06/18 Dorzolamide/Timolol/Pf [Timolol 0.5%-Dorzolamide 2%] 10 ml OP DAILY 03/06/18 Lisinopril [Prinivil -] 40 mg PO DAILY 03/06/18 Metformin HCl [Metformin HCl ER] 500 mg PO DAILY 03/06/18 Metoprolol Succinate [Toprol Xl] 25 mg PO DAILY 03/06/18 Pravastatin Sodium 10 mg PO DAILY 03/06/18 Vitamin B-12 500 mcg PO DAILY 03/06/18 Review of Systems - Review of Systems Constitutional: denies: Chills, Fever Eyes: denies: Eye Pain HENT: denies: Nasal Congestion Neck: denies: Stiffness Cardiovascular: denies: Palpitations Respiratory: denies: Orthopnea, PND Gastrointestinal: denies: Diarrhea, Rectal Bleeding Genitourinary: denies: Burning, Hematuria Musculoskeletal: denies: Muscle Pain Integumentary: denies: Rash Neurological: denies: Dizziness, Seizure, Syncope Endocrine: denies: Excessive Sweating Hematology/Lymphatic: denies: Excessive Bleeding Vital Signs: Vital Signs Temperature 98.1 F 03/06/18 15:42 Pulse Rate 75 03/06/18 15:42 Respiratory Rate 18 03/06/18 15:42 Blood Pressure 153/84 03/06/18 15:42 O2 Sat by Pulse Oximetry (%) 100 03/06/18 15:42 Constitutional: Yes: Well Nourished, No Distress Eyes: No: Sclera Icterus HENT: No: Nasal Congestion Neck: No: Decreased ROM Respiratory: Yes: CTA Bilaterally (anteriorly (pain prevents sitting up)). No: Accessory Muscle Use, Rales, Wheezes Gastrointestinal: Yes: Normal Bowel Sounds. No: Distention, Hepatomegaly, Palpable Mass, Tenderness Cardiovascular: Yes: Regular Rate and Rhythm JVD: No Carotid Bruit: No PMI: Non-Displaced Heart Sounds: Yes: S1, S2. No: Gallop Murmur: No: Systolic Murmur, Diastolic Murmur Musculoskeletal: Yes: Other (No kyphosis) Extremities: No: Cool, Cyanosis Edema: No Peripheral Pulses: 2+ Left Carotid, 2+ Right Carotid, 2+ Left Doralis Pedis, 2+ Right Dorsalis Pedis Integumentary: No: Jaundice Neurological: Yes: Alert, Oriented (x3), Other (moves both legs and feet, gross touch sensation intact bilateral feet) Psychiatric: No: Agitated - Other Data Labs, Other Data: CBC, BMP 03/06/18 06:00 03/06/18 06:00 INR, PTT INR 1.11 (0.83-1.09) H 03/05/18 23:14 Troponin, BNP 03/05/18 03/06/18 03/06/18 23:14 06:00 12:50 Troponin I 0.64 H* 0.67 H* 0.51 H Troponin, BNP 03/05/18 03/06/18 03/06/18 23:14 06:00 12:50 Troponin I 0.64 H* 0.67 H* 0.51 H Assessment/Plan ECG 03/05 (22:40): NSR with RBBB and LAFB. RBBB-associated repol changes in V1- V3. no signif change vs prior office ecg 09/29 CXR: clear lungs/pleura Echo: nl LV/EF. no RWMA described. nl RV. mild L/NASIMA. mild AI. MIBI 2015: 9:30min, no STs, no isch; nl EF, no LVE/TID s/p fall, +rhabdo: -mechanical fall, triggered by hip pain radiating to legs with leg weakness; -likely spine or other neurogenic etiology--? spinal disc herniation. per hospitalist -history not suggestive of acute abdominal aorta pathologym, no bp lability here -CPK 19K, trending down with IVF elevated trop, chronic ischemic heart disease: -S/P CABG 1989 -LONG H/O ? 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 trop 0.6 x 2, then 0.5 = flat trend not c/w ACS. Type II DC sec to acute stressors of fall with severe pain and prolonged time on floor. -no anti-thrombotic/AC med indicated here -will repeat nuclear stress test routinely as outpt for risk stratification, as long as remains asymptomatic here -CONT HOME ASA, BB -hold statin given elevated AST of unclear etiology Abnormal LFTs: -AST up >>> ALT, not c/w hypoperfusion -hold statin, trend labs -per hospitalist Essential hypertension: -HOME REGIMEM LISINOPRIL 40, METOPR SUCC 25 -BP CURRENTLY MILDLY ELEVATED -RENAL FXN NORMAL, DESPITE RHABDO--START LISIN 40, MONITOR CREATININE CLOSELY Pure hypercholesterolemia: -SEC PREVENTION. -ON PRAVA 10 AT HOME, WITH LDL 40 AND TOTAL CHOL 120S ON THIS REGIMEN -SAME PLAN Impaired fasting glucose: -ON METFORMIN AT HOME -PER HOSPITALIST
--- NOTE | 2018-03-06 18:03 | PN ---
Physical Exam: SUBJECTIVE: Patient seen and examined. Last BM was 3 days ago. Pt. states that last urination was 2 days ago. Fell and laid on the ground for 2 days. OBJECTIVE: Vital Signs Period Temp Pulse Resp BP Sys/Becerril Pulse Ox Last 24 Hr 98.1 F-98.3 F 68-76 16-18 117-153/68-84 98-100 GENERAL: The patient is awake, alert, and fully oriented, in no acute distress. HEAD: Chin abrasion. EYES: PERRL, extraocular movements intact, sclera anicteric, conjunctiva clear. No ptosis. ENT: Ears normal, nares patent, oropharynx clear without exudates, dry mucous membranes. NECK: Trachea midline, supple, No JVD. LUNGS: Breath sounds equal, clear to auscultation bilaterally, no wheezes, no crackles, no accessory muscle use. HEART: Tachycardic irregular rate and rhythm, S1, S2 without murmur ABDOMEN: Soft, nontender, nondistended, normoactive bowel sounds, no guarding, no rebound, good rectal tone EXTREMITIES: b/l knee abrasions, 2+ dorsal pedal pulses, warm, well-perfused, no edema, no calf tenderness 5/5 knife glazer strength, equal strength in b/l extremities, decreased sensation in medial aspect of left arm. Unable to lift legs off bed but able to passively flex the knee and hip bilaterally without tenderness. NEUROLOGICAL: Cranial nerves II through XII grossly intact. Normal speech, gait not observed. PSYCH: Normal mood, normal affect. SKIN: Warm, dry, normal turgor, abrasions as noted above Laboratory Results - last 24 hr 03/05/18 03/05/18 03/05/18 23:14 23:14 23:14 WBC 15.6 H RBC 5.85 H Hgb 17.9 H Hct 54.5 H MCV 93.2 MCH 30.7 MCHC 32.9 RDW 14.6 Plt Count 162 MPV 9.2 Absolute Neuts (auto) 13.2 H Neutrophils % 84.7 H Lymphocytes % 6.1 L Monocytes % 8.9 Eosinophils % 0.1 Basophils % 0.2 Nucleated RBC % 0 PT with INR 13.10 H INR 1.11 H Sodium 131 L Potassium 4.8 Chloride 91 L Carbon Dioxide 29 Anion Gap 12 BUN 34 H Creatinine 0.9 Creat Clearance w eGFR > 60 POC Glucometer Random Glucose 125 H Hemoglobin A1c % Calcium 9.9 Phosphorus Magnesium 3.0 H Total Bilirubin 2.0 H Direct Bilirubin AST 564 H ALT 89 H Alkaline Phosphatase 78 Creatine Kinase 34541 H Creatine Kinase Index 0.6 CK-MB (CK-2) 126 H Troponin I 0.64 H* Total Protein 7.3 Albumin 3.9 Lipase Urine Color Urine Appearance Urine pH Ur Specific [place] Urine Protein Urine Glucose (UA) Urine Ketones Urine Blood Urine Nitrite Urine Bilirubin Urine Urobilinogen Ur Leukocyte Esterase Urine WBC (Auto) Urine RBC (Auto) Ur Epithelial Cells Urine Bacteria Hyaline Casts Urine Mucus 03/05/18 03/06/18 03/06/18 23:14 01:44 02:01 WBC RBC Hgb Hct MCV MCH MCHC RDW Plt Count MPV Absolute Neuts (auto) Neutrophils % Lymphocytes % Monocytes % Eosinophils % Basophils % Nucleated RBC % PT with INR INR Sodium Potassium Chloride Carbon Dioxide Anion Gap BUN Creatinine Creat Clearance w eGFR POC Glucometer Random Glucose Hemoglobin A1c % Calcium Phosphorus 3.4 Magnesium Total Bilirubin Direct Bilirubin AST ALT Alkaline Phosphatase Creatine Kinase Creatine Kinase Index 0.6 CK-MB (CK-2) 126 H Troponin I Total Protein Albumin Lipase Urine Color Yellow Urine Appearance Clear Urine pH 5.0 Ur Specific [place] 1.020 Urine Protein 3+ H Urine Glucose (UA) Negative Urine Ketones Trace H Urine Blood 3+ H Urine Nitrite Negative Urine Bilirubin Negative Urine Urobilinogen Negative Ur Leukocyte Esterase Negative Urine WBC (Auto) 15 Urine RBC (Auto) 2 Ur Epithelial Cells Rare Urine Bacteria Rare Hyaline Casts 7 Urine Mucus Rare 03/06/18 03/06/18 03/06/18 06:00 06:00 06:00 WBC 12.6 H RBC 5.26 Hgb 16.1 Hct 49.1 H MCV 93.3 MCH 30.6 MCHC 32.8 RDW 14.4 Plt Count 134 MPV 9.2 Absolute Neuts (auto) Neutrophils % Lymphocytes % Monocytes % Eosinophils % Basophils % Nucleated RBC % PT with INR INR Sodium 133 L Potassium 4.4 Chloride 97 L Carbon Dioxide 25 Anion Gap 11 BUN 32 H Creatinine 0.7 Creat Clearance w eGFR > 60 POC Glucometer Random Glucose 103 Hemoglobin A1c % Calcium 8.7 Phosphorus 3.5 Magnesium 2.6 H Total Bilirubin 2.0 H Direct Bilirubin AST 467 H ALT 78 H Alkaline Phosphatase 70 Creatine Kinase 27062 H Creatine Kinase Index 0.3 CK-MB (CK-2) 77.3 H Troponin I 0.67 H* Total Protein 6.3 L Albumin 3.4 Lipase Urine Color Urine Appearance Urine pH Ur Specific [place] Urine Protein Urine Glucose (UA) Urine Ketones Urine Blood Urine Nitrite Urine Bilirubin Urine Urobilinogen Ur Leukocyte Esterase Urine WBC (Auto) Urine RBC (Auto) Ur Epithelial Cells Urine Bacteria Hyaline Casts Urine Mucus 03/06/18 03/06/18 03/06/18 06:00 06:00 06:00 WBC RBC Hgb Hct MCV MCH MCHC RDW Plt Count MPV Absolute Neuts (auto) Neutrophils % Lymphocytes % Monocytes % Eosinophils % Basophils % Nucleated RBC % PT with INR INR Sodium Potassium Chloride Carbon Dioxide Anion Gap BUN Creatinine Creat Clearance w eGFR POC Glucometer Random Glucose Hemoglobin A1c % 6.4 H Calcium Phosphorus Magnesium Total Bilirubin Direct Bilirubin 0.5 H AST ALT Alkaline Phosphatase Creatine Kinase Cancelled Creatine Kinase Index Cancelled CK-MB (CK-2) Cancelled Troponin I Total Protein Albumin Lipase 267 Urine Color Urine Appearance Urine pH Ur Specific [place] Urine Protein Urine Glucose (UA) Urine Ketones Urine Blood Urine Nitrite Urine Bilirubin Urine Urobilinogen Ur Leukocyte Esterase Urine WBC (Auto) Urine RBC (Auto) Ur Epithelial Cells Urine Bacteria Hyaline Casts Urine Mucus 03/06/18 03/06/18 03/06/18 06:15 12:50 13:11 WBC RBC Hgb Hct MCV MCH MCHC RDW Plt Count MPV Absolute Neuts (auto) Neutrophils % Lymphocytes % Monocytes % Eosinophils % Basophils % Nucleated RBC % PT with INR INR Sodium Potassium Chloride Carbon Dioxide Anion Gap BUN Creatinine Creat Clearance w eGFR POC Glucometer [id number] 104.12564 Random Glucose Hemoglobin A1c % Calcium Phosphorus Magnesium Total Bilirubin Direct Bilirubin AST ALT Alkaline Phosphatase Creatine Kinase 93042 H Creatine Kinase Index 0.4 CK-MB (CK-2) 53.4 H Troponin I 0.51 H Total Protein Albumin Lipase Urine Color Urine Appearance Urine pH Ur Specific [place] Urine Protein Urine Glucose (UA) Urine Ketones Urine Blood Urine Nitrite Urine Bilirubin Urine Urobilinogen Ur Leukocyte Esterase Urine WBC (Auto) Urine RBC (Auto) Ur Epithelial Cells Urine Bacteria Hyaline Casts Urine Mucus Active Medications Current Medications Aspirin (Asa -) 81 mg PO DAILY [facility] Last Admin: 03/06/18 10:08 Dose: 81 mg Bacitracin (Bacitracin -) 1 applic TP DAILY [facility] Dorzolamide HCl (Trusopt 2%) 1 drop OU DAILY [facility] Last Admin: 03/06/18 10:09 Dose: Not Given Heparin Sodium (Porcine) (Heparin -) 5,000 unit SQ TID [facility] Last Admin: 03/06/18 14:40 Dose: 5,000 unit Sodium Chloride (Normal Saline -) 1,000 mls @ 150 mls/hr IV ASDIR [facility] Last Admin: 03/06/18 04:27 Dose: 150 mls/hr Insulin Aspart (Novolog Vial Sliding Scale -) 1 vial SQ ACHS [facility]; Protocol Last Admin: 03/06/18 13:12 Dose: Not Given Lisinopril (Prinivil) 40 mg PO DAILY [facility] Metoprolol Succinate (Toprol Xl -) 25 mg PO DAILY [facility] Last Admin: 03/06/18 10:08 Dose: 25 mg Timolol Maleate (Timoptic 0.5%) 1 drop OU DAILY [facility] Last Admin: 03/06/18 10:08 Dose: Not Given Home Medications Medication Instructions Recorded Ascorbic Acid [Vitamin C -] 1,000 mg PO DAILY 03/06/18 Aspirin [ASA -] 81 mg PO DAILY 03/06/18 Cholecalciferol (Vitamin D3) 2,000 unit PO DAILY 03/06/18 [Vitamin D3 -] Dorzolamide/Timolol/Pf [Timolol 10 ml OP DAILY 03/06/18 0.5%-Dorzolamide 2%] Lisinopril [Prinivil -] 40 mg PO DAILY 03/06/18 Metformin HCl [Metformin HCl ER] 500 mg PO DAILY 03/06/18 Metoprolol Succinate [Toprol Xl] 25 mg PO DAILY 03/06/18 Pravastatin Sodium 10 mg PO DAILY 03/06/18 Vitamin B-12 500 mcg PO DAILY 03/06/18 ASSESSMENT/PLAN: A 77 y.o. M w/ PMHx. of HTN, DM2, HLD, CAD s/p CABG (1989) presents to the ED two days after an unwitnessed fall. #Cardiology -Syncope EKG showed sinus rhythm, 1st degree AV block, RBBB Troponin--> 0.67-->0.61-->0.51 Echo: LV and RV normal, trace TR and MR, mild AR, mildly dilated atria Consult w/ Dr. Hoffmann appreciated--> Stress test as outpatient if symptoms continue to resolve, if worsening will do as inpatient. -HLD-stable Hold statins b/c of rhabdomyolysis -HTN-stable c/w Metoprolol 25mg BID -CAD-resolving elevated troponins likely demand ischmemia 2/2 fall, starvation and rhabdomyolysis c/w ASA 81mg c/w cardiac monitoring #Neurology -Syncope Head CT/ Facial CT/C-spine CT- no acute pathology Neurovascular checks CT Chest- C5-C6 degenerative disc disease with central spinal canal stenosis. #Gastroenterology -Transaminitis-resolving Elevated AST and ALT, both trending down-(AST more than 2X ALT and acute fall without predisposing incident concerning for EtOH abuse, however no UTox was done.) c/w Trending LFTs Abd US: No acute pathology #Endocrine -NIDDM-stable ISS-ACHS BGM-ACHS HgB A1c: 6.4% #Musculoskeletal -Myoglobinemia -resolving CPK: 19,620-->19,616-->11,603 #F/E/N -c/w IVF @ 150ml/hr -monitor electrolytes ad replete as needed -Regular Diet #DVT Ppx. -Heparin SQ TID Visit type - Emergency Visit Emergency Visit: Yes ED Registration Date: 03/06/18 Care time: The patient presented to the Emergency Department on the above date and was hospitalized for further evaluation of their emergent condition. - New Patient This patient is new to me today: Yes Date on this admission: 03/06/18 - Critical Care Critical Care patient: No - Discharge Referral Referred to [facility] Med P.C.: No
[2018-03-06] MEDS ORDERED: KETOROLAC TROMETHAMINE 30 MG/1 ML VIAL IM ONE (19:44)
[2018-03-06 20:39] VITALS: BMI 24.5
[2018-03-06] MEDS: BACITRACIN 15 GM TUBE TOPICAL OINTMENT TP SCH (21:05)
[2018-03-07] MEDS: SODIUM CHLORIDE 1,000 ML IV SCH ×3 (02:35→18:00)
[2018-03-07] MEDS: INSULIN SLIDING SCALE (NOVOLOG) 1 VIAL SQ SCH ×4 (06:07→22:03)
[2018-03-07] MEDS: HEPARIN NA (PORCINE) 5,000 UNITS/ML 1ML VIAL SQ SCH ×3 (06:07→22:04)
[2018-03-07 06:22] LABS: HEMATOCRIT 42.1 % (35.4-49); MCHC 33.3 g/dl (32.0-35.9); MEAN PLT VOLUME 8.7 fl (7.5-11.1); PLATELET COUNT 115 K/MM3 (134-434); RBC 4.53 M/mm3 (4.00-5.60); RDW 14.3 % (11.9-15.9); WHITE BLOOD COUNT 8.3 K/mm3 (4.0-10.0)
[2018-03-07 07:56] LABS: ALBUMIN 2.9 g/dl (3.4-5.0); ALK PHOS 58 U/L (45-117); ANION GAP 7 MMOL/L (8-16); BILIRUBIN,DIRECT 0.6 mg/dL (0.0-0.2); BILIRUBIN,TOTAL 1.9 mg/dL (0.2-1); BLOOD UREA NITROGEN 19 mg/dL (7-18); CALCIUM 7.9 mg/dL (8.5-10.1); CHLORIDE 101 mmol/L (98-107); CO2 28 mmol/L (21-32); CREATININE 0.6 mg/dL (0.55-1.3); GLUCOSE,RANDOM 75 mg/dL (74-106); MAGNESIUM 2.2 mg/dL (1.8-2.4); PHOSPHOROUS 1.6 mg/dL (2.5-4.9); POTASSIUM 3.7 mmol/L (3.5-5.1); SGOT/AST 332 U/L (15-37); SGPT/ALT 72 U/L (13-61); SODIUM 136 mmol/L (136-145); TOT PROT 5.3 g/dl (6.4-8.2)
[2018-03-07] MEDS ORDERED: POTASSIUM PHOSPHATE 30 MM in SODIUM CHLORIDE 500 ML IVPB ONE (08:01)
--- NOTE | 2018-03-07 08:18 | PN ---
Teaching Attending Note Name of Resident: Sedrick Naidu ATTENDING PHYSICIAN STATEMENT I saw and evaluated the patient. I reviewed the resident's note and discussed the case with the resident. I agree with the resident's findings and plan as documented with exceptions below. SUBJECTIVE: patient seen and examined. soreness better, overall better, no new complaints. OBJECTIVE: Vital Signs Period Temp Pulse Resp BP Sys/Becerril Pulse Ox Last 24 Hr 97.8 F-98.7 F 62-82 16-20 114-153/57-84 98-100 Intake & Output 03/04/18 03/05/18 03/06/18 03/07/18 23:59 23:59 23:59 23:59 Intake Total 180 1920 Output Total 360 600 Balance -180 1320 Weight 145 lb 143 lb 3.2 oz General: sitting in bed having lunch Chest: CTAB no rales or wheezing Abdomen: soft, NT, ND extremities: no edema, no active concerns over knee abrasions HEENT: chin abrasion with no active bleed or discharge Musculoskeletal: ROM improved at lower extremities Active Medications Aspirin (Asa -) 81 mg PO DAILY [facility] Last Admin: 03/06/18 10:08 Dose: 81 mg Bacitracin (Bacitracin -) 1 applic TP DAILY [facility] Last Admin: 03/06/18 21:05 Dose: 1 applic Dorzolamide HCl (Trusopt 2%) 1 drop OU DAILY [facility] Last Admin: 03/06/18 10:09 Dose: Not Given Heparin Sodium (Porcine) (Heparin -) 5,000 unit SQ TID [facility] Last Admin: 03/07/18 06:07 Dose: 5,000 unit Sodium Chloride (Normal Saline -) 1,000 mls @ 150 mls/hr IV ASDIR [facility] Last Admin: 03/07/18 02:35 Dose: 150 mls/hr Potassium Phosphate 30 mm/ (Sodium Chloride) 510 mls @ 62.5 mls/hr IVPB ONCE ONE Stop: 03/07/18 16:10 Insulin Aspart (Novolog Vial Sliding Scale -) 1 vial SQ ACHS [facility]; Protocol Last Admin: 03/07/18 06:07 Dose: Not Given Lisinopril (Prinivil) 40 mg PO DAILY [facility] Metoprolol Succinate (Toprol Xl -) 25 mg PO DAILY [facility] Last Admin: 03/06/18 10:08 Dose: 25 mg Timolol Maleate (Timoptic 0.5%) 1 drop OU DAILY [facility] Last Admin: 03/06/18 10:08 Dose: Not Given Laboratory Results - last 24 hr 03/06/18 03/06/18 03/06/18 06:00 06:00 06:00 WBC RBC Hgb Hct MCV MCH MCHC RDW Plt Count MPV Sodium Potassium Chloride Carbon Dioxide Anion Gap BUN Creatinine Creat Clearance w eGFR POC Glucometer Random Glucose Hemoglobin A1c % 6.4 H Calcium Phosphorus Magnesium Total Bilirubin Direct Bilirubin AST ALT Alkaline Phosphatase Creatine Kinase Cancelled Creatine Kinase Index 0.3 CK-MB (CK-2) 77.3 H Troponin I Total Protein Albumin 03/06/18 03/06/18 03/06/18 06:00 12:50 13:11 WBC RBC Hgb Hct MCV MCH MCHC RDW Plt Count MPV Sodium Potassium Chloride Carbon Dioxide Anion Gap BUN Creatinine Creat Clearance w eGFR POC Glucometer 104.14917 Random Glucose Hemoglobin A1c % Calcium Phosphorus Magnesium Total Bilirubin Direct Bilirubin AST ALT Alkaline Phosphatase Creatine Kinase 01738 H Creatine Kinase Index Cancelled 0.4 CK-MB (CK-2) Cancelled 53.4 H Troponin I 0.51 H Total Protein Albumin 03/06/18 03/07/18 03/07/18 21:10 05:30 05:30 WBC RBC Hgb Hct MCV MCH MCHC RDW Plt Count MPV Sodium 136 Cancelled Potassium 3.7 Cancelled Chloride 101 Cancelled Carbon Dioxide 28 Cancelled Anion Gap 7 L Cancelled BUN 19 H Cancelled Creatinine 0.6 Cancelled Creat Clearance w eGFR > 60 Cancelled POC Glucometer 123 Random Glucose 75 Cancelled Hemoglobin A1c % Calcium 7.9 L Cancelled Phosphorus 1.6 L Cancelled Magnesium 2.2 Cancelled Total Bilirubin 1.9 H Direct Bilirubin 0.6 H Cancelled AST 332 H ALT 72 H Alkaline Phosphatase 58 Creatine Kinase 8811 H Creatine Kinase Index CK-MB (CK-2) Troponin I Total Protein 5.3 L Albumin 2.9 L 03/07/18 03/07/18 05:30 05:56 WBC 8.3 RBC 4.53 Hgb 14.0 Hct 42.1 MCV 93.0 MCH 31.0 MCHC 33.3 RDW 14.3 Plt Count 115 L MPV 8.7 Sodium Potassium Chloride Carbon Dioxide Anion Gap BUN Creatinine Creat Clearance w eGFR POC Glucometer 84 Random Glucose Hemoglobin A1c % Calcium Phosphorus Magnesium Total Bilirubin Direct Bilirubin AST ALT Alkaline Phosphatase Creatine Kinase Creatine Kinase Index CK-MB (CK-2) Troponin I Total Protein Albumin ASSESSMENT AND PLAN: 77 yom with PMHx of CAD s/p CABG 1989, HTN, HLD, NIDDM, brought in ED after mechanical fall, being on the floor for 2 days. -Mechanical -Rhabdomyolysis from being on the floor for 2 days -Left thigh pain, suspect soft tissue injury, current exam and imaging not concerning for acute fracture -Multiple abrasions chin/knees/extremities -Elevated troponin, suspect demand type II from above vs from significant rhabdomyolysis -HTN -HLD -CAD s/p CABG 1989 Plan: trauma w/u neg. CPK improved, Continue IVF as tolerated by volume status. PT eval. Hold statin. Continue lisinopril/metoprolol. Cardiology input appreciated. 2D echo noted. Trop overall unchanged Wound care for abrasions Fall precautions. PT eval DVTPPX with heparin. Dispo SNF vs home with PT in 24 hours if continues to improve and disposition arranged. Plan discussed with patient in detail, all questions answered.
[2018-03-07] MEDS ORDERED: PT OWN MED DRAWER 7, Y5N ONE (10:09)
[2018-03-07] MEDS: ASPIRIN 81 MG CHEWABLE TABLETS PO SCH (12:02)
[2018-03-07] MEDS: BACITRACIN 15 GM TUBE TOPICAL OINTMENT TP SCH (12:10)
[2018-03-07] MEDS: LISINOPRIL 20 MG TABLET (FP) PO SCH (12:10)
[2018-03-07] MEDS: metoPROLOL SUCCINATE 25 MG TAB.SR.24H (FP) PO SCH (12:10)
[2018-03-07] MEDS: TIMOLOL 0.5% OPHTHALMIC SOL 5 ML BOTTLE OU SCH (12:16)
[2018-03-07] MEDS: DORZOLAMIDE 2% HCL OPHTHALMIC SOLUTION 10 ML BOTTLE OU SCH (12:16)
[2018-03-07] MEDS: DOCUSATE SODIUM 100 MG CAPSULE (FP) PO SCH (15:23)
[2018-03-07] MEDS: POLYETHYLENE GLYCOL 3350 119 GM BTL PO SCH (15:23)
--- NOTE | 2018-03-07 17:23 | PN ---
Progress Note (short form) - Note Progress Note: s: no cp sob palps dizzy o: Vital Signs Period Temp Pulse Resp BP Sys/Becerril Pulse Ox Last 24 Hr 97.8 F-98.7 F 62-82 18-20 114-147/57-84 98-98 Constitutional: Yes: Well Nourished, No Distress Eyes: No: Sclera Icterus Respiratory: Yes: CTA Bilaterally No: Accessory Muscle Use, Rales, Wheezes Gastrointestinal: Yes: Normal Bowel Sounds. No: Distention, Hepatomegaly, Palpable Mass, Tenderness Cardiovascular: Yes: Regular Rate and Rhythm JVD: No Heart Sounds: Yes: S1, S2. No: Gallop Murmur: No: Systolic Murmur, Diastolic Murmur Extremities: No: Cool, Cyanosis Edema: No Integumentary: No: Jaundice diaphoresis Neurological: Yes: Alert, Oriented (x3) Psychiatric: No: Agitated Current Medications Generic Name Dose Route Start Last Admin Trade Name Freq PRN Reason Stop Dose Admin Aspirin 81 mg 03/06/18 10:00 03/07/18 12:02 Asa - PO 81 mg DAILY [facility] Administration Bacitracin 1 applic 03/06/18 17:15 03/07/18 12:10 Bacitracin - TP 1 applic DAILY [facility] Administration Docusate Sodium 100 mg 03/07/18 14:15 03/07/18 15:23 Colace - PO 100 mg DAILY [facility] Administration Dorzolamide HCl 1 drop 03/06/18 10:00 03/07/18 12:16 Trusopt 2% OU 1 drop DAILY [facility] Administration Heparin Sodium (Porcine) 5,000 unit 03/06/18 06:00 03/07/18 15:04 Heparin - SQ Not Given TID [facility] Sodium Chloride 1,000 mls @ 150 mls/hr 03/06/18 04:15 03/07/18 08:41 Normal Saline - IV 150 mls/hr ASDIR [facility] Administration Insulin Aspart 1 vial 03/06/18 07:00 03/07/18 16:49 Novolog Vial Sliding Scale - SQ Not Given ACHS [facility] Protocol Lisinopril 40 mg 03/07/18 10:00 03/07/18 12:10 Prinivil PO 40 mg DAILY [facility] Administration Metoprolol Succinate 25 mg 03/06/18 10:00 03/07/18 12:10 Toprol Xl - PO 25 mg DAILY [facility] Administration Polyethylene Glycol 17 gm 03/07/18 14:15 03/07/18 15:23 Miralax (For Daily Use) - PO 17 gm DAILY [facility] Administration Senna 1 tab 03/07/18 22:00 Senna - PO HS [facility] Timolol Maleate 1 drop 03/06/18 10:00 03/07/18 12:16 Timoptic 0.5% OU 1 drop DAILY [facility] Administration CBC, BMP 03/07/18 05:30 03/07/18 05:30 Assessment/Plan ECG 03/05 (22:40): NSR with RBBB and LAFB. RBBB-associated repol changes in V1- V3. no signif change vs prior office ecg 09/29 CXR: clear lungs/pleura Echo: nl LV/EF. no RWMA described. nl RV. mild L/NASIMA. mild AI. MIBI 2015: 9:30min, no STs, no isch; nl EF, no LVE/TID tele: sr s/p fall, +rhabdo: -mechanical fall, triggered by hip pain radiating to legs with leg weakness; -likely spine or other neurogenic etiology--? spinal disc herniation. per hospitalist -history not suggestive of acute abdominal aorta pathologym, no bp lability here -CPK 19K, trending down with IVF elevated trop, chronic ischemic heart disease: -S/P CABG 1989 -LONG H/O ? 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 trop 0.6 x 2, then 0.5 = flat trend not c/w ACS. Type II VA sec to acute stressors of fall with severe pain and prolonged time on floor. -no anti-thrombotic/AC med indicated here -will repeat nuclear stress test routinely as outpt for risk stratification, as long as remains asymptomatic here -CONT HOME ASA, BB -hold statin given elevated AST, ck Essential hypertension: -CONT HOME REGIMEN LISINOPRIL 40, METOPR SUCC 25 Pure hypercholesterolemia: -holding statin 2/2 rhabdo dc tele
[2018-03-07] MEDS ORDERED: INSULIN (NOVOLOG) ASPART 100 UNITS/ML 10ML VIAL ONE (21:36)
[2018-03-07] MEDS: SENNOSIDES 8.6MG TABLET (FP) PO SCH (22:04)
--- NOTE | 2018-03-07 23:26 | PN ---
Physical Exam: SUBJECTIVE: Patient seen and examined. No acute events overnight. Pt. has not had a BM in 4 days. OBJECTIVE: Vital Signs Period Temp Pulse Resp BP Sys/Becerril Pulse Ox Last 24 Hr 97.8 F-98.8 F 62-82 18-20 114-154/57-84 98 GENERAL: The patient is awake, alert, and fully oriented, in no acute distress. EYES: sclera anicteric, conjunctiva clear. No ptosis. ENT: Ears normal, nares patent, oropharynx clear without exudates, moist mucous membranes. LUNGS: Breath sounds equal, clear to auscultation bilaterally, no wheezes, no crackles, no accessory muscle use. HEART: Irregular rate and rhythm, S1, S2 without murmur, rub or gallop. ABDOMEN: Soft, nontender, nondistended, normoactive bowel sounds, no guarding, no rebound EXTREMITIES: 2+ left dorsal pedal pulse, warm, well-perfused, no calf tenderness , no edema. NEUROLOGICAL: Normal speech, gait not observed. PSYCH: Normal mood, normal affect. SKIN: Warm, dry, normal turgor, no rashes or lesions noted Laboratory Results - last 24 hr 03/07/18 03/07/18 03/07/18 05:30 05:30 05:30 WBC 8.3 RBC 4.53 Hgb 14.0 Hct 42.1 MCV 93.0 MCH 31.0 MCHC 33.3 RDW 14.3 Plt Count 115 L MPV 8.7 Sodium 136 Cancelled Potassium 3.7 Cancelled Chloride 101 Cancelled Carbon Dioxide 28 Cancelled Anion Gap 7 L Cancelled BUN 19 H Cancelled Creatinine 0.6 Cancelled Creat Clearance w eGFR > 60 Cancelled POC Glucometer Random Glucose 75 Cancelled Calcium 7.9 L Cancelled Phosphorus 1.6 L Cancelled Magnesium 2.2 Cancelled Total Bilirubin 1.9 H Direct Bilirubin 0.6 H Cancelled AST 332 H ALT 72 H Alkaline Phosphatase 58 Creatine Kinase 8811 H Creatine Kinase Index 0.4 CK-MB (CK-2) 42.0 H Total Protein 5.3 L Albumin 2.9 L 03/07/18 03/07/18 03/07/18 05:56 12:00 16:47 WBC RBC Hgb Hct MCV MCH MCHC RDW Plt Count MPV Sodium Potassium Chloride Carbon Dioxide Anion Gap BUN Creatinine Creat Clearance w eGFR POC Glucometer 84 102 134 Random Glucose Calcium Phosphorus Magnesium Total Bilirubin Direct Bilirubin AST ALT Alkaline Phosphatase Creatine Kinase Creatine Kinase Index CK-MB (CK-2) Total Protein Albumin 03/07/18 22:00 WBC RBC Hgb Hct MCV MCH MCHC RDW Plt Count MPV Sodium Potassium Chloride Carbon Dioxide Anion Gap BUN Creatinine Creat Clearance w eGFR POC Glucometer 136 Random Glucose Calcium Phosphorus Magnesium Total Bilirubin Direct Bilirubin AST ALT Alkaline Phosphatase Creatine Kinase Creatine Kinase Index CK-MB (CK-2) Total Protein Albumin Active Medications Current Medications Aspirin (Asa -) 81 mg PO DAILY [facility] Last Admin: 03/07/18 12:02 Dose: 81 mg Bacitracin (Bacitracin -) 1 applic TP DAILY [facility] Last Admin: 03/07/18 12:10 Dose: 1 applic Docusate Sodium (Colace -) 100 mg PO DAILY [facility] Last Admin: 03/07/18 15:23 Dose: 100 mg Dorzolamide HCl (Trusopt 2%) 1 drop OU DAILY [facility] Last Admin: 03/07/18 12:16 Dose: 1 drop Heparin Sodium (Porcine) (Heparin -) 5,000 unit SQ TID [facility] Last Admin: 03/07/18 22:04 Dose: 5,000 unit Sodium Chloride (Normal Saline -) 1,000 mls @ 100 mls/hr IV ASDIR [facility] Last Admin: 03/07/18 18:00 Dose: 100 mls/hr Insulin Aspart (Novolog Vial Sliding Scale -) 1 vial SQ ACHS [facility]; Protocol Last Admin: 03/07/18 22:03 Dose: Not Given Lisinopril (Prinivil) 40 mg PO DAILY [facility] Last Admin: 03/07/18 12:10 Dose: 40 mg Metoprolol Succinate (Toprol Xl -) 25 mg PO DAILY [facility] Last Admin: 03/07/18 12:10 Dose: 25 mg Polyethylene Glycol (Miralax (For Daily Use) -) 17 gm PO DAILY [facility] Last Admin: 03/07/18 15:23 Dose: 17 gm Senna (Senna -) 1 tab PO HS [facility] Last Admin: 03/07/18 22:04 Dose: 1 tab Timolol Maleate (Timoptic 0.5%) 1 drop OU DAILY [facility] Last Admin: 03/07/18 12:16 Dose: 1 drop Home Medications Medication Instructions Recorded Dorzolamide/Timolol/Pf [Timolol 10 ml OP DAILY 10/23/18 0.5%-Dorzolamide 2%] Lisinopril [Prinivil -] 40 mg PO DAILY 03/06/18 Metformin HCl [Metformin HCl ER] 500 mg PO DAILY 03/06/18 Pravastatin Sodium 10 mg PO DAILY 03/06/18 Aspirin [ASA -] 81 mg PO DAILY #30 tab.chew 03/07/18 Metoprolol Succinate [Toprol Xl] 200 mg PO DAILY 03/07/18 Nitroglycerin 0.4 mg SL PRN 03/07/18 ASSESSMENT/PLAN: A 77 y.o. M w/ PMHx. of HTN, DM2, HLD, CAD s/p CABG (1989) presents to the ED two days after an unwitnessed fall. #Cardiology -Syncope EKG showed sinus rhythm, 1st degree AV block, RBBB Troponin--> 0.67-->0.61-->0.51 Echo: LV and RV normal, trace TR and MR, mild AR, mildly dilated atria, EF: 55% Consult w/ Dr. Cuellar appreciated--> Stress test as outpatient if symptoms continue to resolve, if worsening will do as inpatient. -HLD-stable Hold statins b/c of increased LFTs -HTN-stable c/w Metoprolol 25mg BID -CAD-resolving elevated troponins likely demand ischmemia 2/2 fall, starvation and rhabdomyolysis c/w ASA 81mg c/w cardiac monitoring #Neurology -Syncope Head CT/ Facial CT/C-spine CT- no acute pathology Neurovascular checks CT Chest- C5-C6 degenerative disc disease with central spinal canal stenosis. #Gastroenterology -Constipation started Senna, Colace and Miralax -Transaminitis-resolving Elevated AST and ALT, both trending down-(AST more than 2X ALT and acute fall without predisposing incident concerning for EtOH abuse, however no UTox was done.) c/w Trending LFTs Abd US: No acute pathology #Endocrine -NIDDM-stable ISS-ACHS BGM-ACHS HgB A1c: 6.4% #Musculoskeletal -Myoglobinemia -resolving CPK: 19,620-->19,616-->11,603-->8,811 #F/E/N -d/c IVF, encourage PO intake -monitor electrolytes ad replete as needed -Regular Diet #DVT Ppx. -Heparin SQ TID #Dispo Pt. walked 200 ft. with PT discharge planning Visit type - Emergency Visit Emergency Visit: Yes ED Registration Date: 03/06/18 Care time: The patient presented to the Emergency Department on the above date and was hospitalized for further evaluation of their emergent condition. - New Patient This patient is new to me today: No - Critical Care Critical Care patient: No - Discharge Referral Referred to [facility] Med P.C.: No
[2018-03-08] MEDS: SODIUM CHLORIDE 1,000 ML IV SCH ×2 (02:11→21:11)
[2018-03-08] MEDS: HEPARIN NA (PORCINE) 5,000 UNITS/ML 1ML VIAL SQ SCH ×3 (05:51→21:06)
[2018-03-08] MEDS: INSULIN SLIDING SCALE (NOVOLOG) 1 VIAL SQ SCH ×5 (06:12→21:10)
[2018-03-08 06:27] LABS: HEMATOCRIT 44.8 % (35.4-49); MCH 31.2 pg (25.7-33.7); MCHC 33.4 g/dl (32.0-35.9); MEAN CELL VOLUME 93.5 fl (80-96); MEAN PLT VOLUME 8.9 fl (7.5-11.1); PLATELET COUNT 118 K/MM3 (134-434); RBC 4.79 M/mm3 (4.00-5.60); RDW 14.4 % (11.9-15.9); WHITE BLOOD COUNT 6.9 K/mm3 (4.0-10.0)
[2018-03-08 07:01] LABS: ANION GAP 7 MMOL/L (8-16); BLOOD UREA NITROGEN 13 mg/dL (7-18); CALCIUM 8.4 mg/dL (8.5-10.1); CHLORIDE 99 mmol/L (98-107); CO2 32 mmol/L (21-32); CREATININE 0.5 mg/dL (0.55-1.3); GLUCOSE,RANDOM 103 mg/dL (74-106); MAGNESIUM 2.1 mg/dL (1.8-2.4); PHOSPHOROUS 2.3 mg/dL (2.5-4.9); POTASSIUM 3.7 mmol/L (3.5-5.1); SODIUM 138 mmol/L (136-145)
[2018-03-08] MEDS: ASPIRIN 81 MG CHEWABLE TABLETS PO SCH (09:16)
[2018-03-08] MEDS: BACITRACIN 15 GM TUBE TOPICAL OINTMENT TP SCH (09:16)
[2018-03-08] MEDS: DOCUSATE SODIUM 100 MG CAPSULE (FP) PO SCH (09:16)
[2018-03-08] MEDS: LISINOPRIL 20 MG TABLET (FP) PO SCH (09:16)
[2018-03-08] MEDS: metoPROLOL SUCCINATE 25 MG TAB.SR.24H (FP) PO SCH (09:16)
[2018-03-08] MEDS: TIMOLOL 0.5% OPHTHALMIC SOL 5 ML BOTTLE OU SCH (09:17)
[2018-03-08] MEDS: DORZOLAMIDE 2% HCL OPHTHALMIC SOLUTION 10 ML BOTTLE OU SCH (09:17)
[2018-03-08] MEDS: POLYETHYLENE GLYCOL 3350 119 GM BTL PO SCH (10:37)
--- NOTE | 2018-03-08 10:55 | PN ---
Progress Note (short form) - Note Progress Note: s: no cp sob palps dizzy o: Vital Signs Period Temp Pulse Resp BP Sys/Becerril Pulse Ox Last 24 Hr 98.2 F-98.9 F 66-79 16-20 122-157/74-80 98-98 Constitutional: Yes: Well Nourished, No Distress Eyes: No: Sclera Icterus Respiratory: Yes: CTA Bilaterally No: Accessory Muscle Use, Rales, Wheezes Gastrointestinal: Yes: Normal Bowel Sounds. No: Distention, Hepatomegaly, Palpable Mass, Tenderness Cardiovascular: Yes: Regular Rate and Rhythm JVD: No Heart Sounds: Yes: S1, S2. No: Gallop Murmur: No: Systolic Murmur, Diastolic Murmur Extremities: No: Cool, Cyanosis Edema: No Integumentary: No: Jaundice diaphoresis Neurological: Yes: Alert, Oriented (x3) Psychiatric: No: Agitated Current Medications Generic Name Dose Route Start Last Admin Trade Name Freq PRN Reason Stop Dose Admin Aspirin 81 mg 03/06/18 10:00 03/08/18 09:16 Asa - PO 81 mg DAILY [facility] Administration Bacitracin 1 applic 03/06/18 17:15 03/08/18 09:16 Bacitracin - TP 1 applic DAILY [facility] Administration Docusate Sodium 100 mg 03/07/18 14:15 03/08/18 09:16 Colace - PO 100 mg DAILY [facility] Administration Dorzolamide HCl 1 drop 03/06/18 10:00 03/08/18 09:17 Trusopt 2% OU 1 drop DAILY [facility] Administration Heparin Sodium (Porcine) 5,000 unit 03/06/18 06:00 03/08/18 05:51 Heparin - SQ 5,000 unit TID [facility] Administration Sodium Chloride 1,000 mls @ 100 mls/hr 03/07/18 18:11 03/08/18 02:11 Normal Saline - IV 100 mls/hr ASDIR [facility] Administration Insulin Aspart 1 vial 03/06/18 07:00 03/08/18 08:04 Novolog Vial Sliding Scale - SQ Not Given ACHS [facility] Protocol Lisinopril 40 mg 03/07/18 10:00 03/08/18 09:16 Prinivil PO 40 mg DAILY [facility] Administration Metoprolol Succinate 25 mg 03/06/18 10:00 03/08/18 09:16 Toprol Xl - PO 25 mg DAILY [facility] Administration Polyethylene Glycol 17 gm 03/07/18 14:15 03/08/18 10:37 Miralax (For Daily Use) - PO 17 gm DAILY [facility] Administration Potassium Phos/Sodium Phos 1 packet 03/08/18 11:00 Phos-Nak Packet - PO 03/09/18 10:59 BID [facility] Senna 1 tab 03/07/18 22:00 03/07/18 22:04 Senna - PO 1 tab HS [facility] Administration Timolol Maleate 1 drop 03/06/18 10:00 03/08/18 09:17 Timoptic 0.5% OU 1 drop DAILY [facility] Administration CBC, BMP 03/08/18 05:30 03/08/18 05:30 Assessment/Plan ECG 03/05 (22:40): NSR with RBBB and LAFB. RBBB-associated repol changes in V1- V3. no signif change vs prior office ecg 09/29 CXR: clear lungs/pleura Echo: nl LV/EF. no RWMA described. nl RV. mild L/NASIMA. mild AI. MIBI 2015: 9:30min, no STs, no isch; nl EF, no LVE/TID tele: sr s/p fall, +rhabdo: -mechanical fall, triggered by hip pain radiating to legs with leg weakness; -likely spine or other neurogenic etiology--? spinal disc herniation. per hospitalist -history not suggestive of acute abdominal aorta pathology, no bp lability here -CPK 19K, trending down with IVF elevated trop, chronic ischemic heart disease: -S/P CABG 1989 -LONG H/O ? 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 trop 0.6 x 2, then 0.5 = flat trend not c/w ACS. Type II NC sec to acute stressors of fall with severe pain and prolonged time on floor. -no anti-thrombotic/AC med indicated here -will repeat nuclear stress test routinely as outpt for risk stratification, as long as remains asymptomatic here -CONT HOME ASA, BB -hold statin given elevated AST, ck Essential hypertension: -CONT HOME REGIMEN LISINOPRIL 40, METOPR SUCC 25 Pure hypercholesterolemia: -holding statin 2/2 gee meraz tele
[2018-03-08] MEDS: NAPH,MB-DB/K PH,MBDB POWDER PACKET PO SCH ×2 (11:09→21:06)
--- NOTE | 2018-03-08 12:59 | PN ---
Physical Exam: SUBJECTIVE: Patient seen and examined. Pt. endorses passing stool, uneventful night. Pt.'s IVF were not running from 6pm last night to 2am this morning. Pt. denies nausea, vomiting, chest pain, or shortness of breath. Pt. states he feels close to baseline health except for some left hip tenderness and some lower extremity tenderness. OBJECTIVE: Vital Signs Period Temp Pulse Resp BP Sys/Becerril Pulse Ox Last 24 Hr 98.2 F-98.9 F 66-79 16-20 122-157/74-80 98-98 GENERAL: The patient is awake, alert, and fully oriented, in no acute distress. EYES: sclera anicteric, conjunctiva clear. No ptosis. ENT: Ears normal, nares patent, oropharynx clear without exudates, moist mucous membranes. LUNGS: Breath sounds equal, clear to auscultation bilaterally, no wheezes, no crackles, no accessory muscle use. HEART: Irregular rate and rhythm, ABDOMEN: Soft, nontender, nondistended, normoactive bowel sounds, no guarding, no rebound EXTREMITIES: 2+ left dorsal pedal pulse, warm, well-perfused, no calf tenderness , no edema. NEUROLOGICAL: Normal speech, gait not observed. PSYCH: Normal mood, normal affect. SKIN: Warm, dry, normal turgor, no rashes or lesions noted Laboratory Results - last 24 hr 03/07/18 03/07/18 03/08/18 16:47 22:00 05:30 WBC 6.9 RBC 4.79 Hgb 15.0 Hct 44.8 MCV 93.5 MCH 31.2 MCHC 33.4 RDW 14.4 Plt Count 118 L MPV 8.9 Sodium Potassium Chloride Carbon Dioxide Anion Gap BUN Creatinine Creat Clearance w eGFR POC Glucometer 134 136 Random Glucose Calcium Phosphorus Magnesium Creatine Kinase Creatine Kinase Index CK-MB (CK-2) 03/08/18 03/08/18 03/08/18 05:30 05:46 10:50 WBC RBC Hgb Hct MCV MCH MCHC RDW Plt Count MPV Sodium 138 Potassium 3.7 Chloride 99 Carbon Dioxide 32 Anion Gap 7 L BUN 13 Creatinine 0.5 L Creat Clearance w eGFR > 60 POC Glucometer 92 Random Glucose 103 Calcium 8.4 L Phosphorus 2.3 L Magnesium 2.1 Creatine Kinase 61346 H Cancelled Creatine Kinase Index 0.2 CK-MB (CK-2) 22.4 H 03/08/18 10:57 WBC RBC Hgb Hct MCV MCH MCHC RDW Plt Count MPV Sodium Potassium Chloride Carbon Dioxide Anion Gap BUN Creatinine Creat Clearance w eGFR POC Glucometer 114 Random Glucose Calcium Phosphorus Magnesium Creatine Kinase Creatine Kinase Index CK-MB (CK-2) Active Medications Current Medications Aspirin (Asa -) 81 mg PO DAILY [facility] Last Admin: 03/08/18 09:16 Dose: 81 mg Bacitracin (Bacitracin -) 1 applic TP DAILY [facility] Last Admin: 03/08/18 09:16 Dose: 1 applic Docusate Sodium (Colace -) 100 mg PO DAILY [facility] Last Admin: 03/08/18 09:16 Dose: 100 mg Dorzolamide HCl (Trusopt 2%) 1 drop OU DAILY [facility] Last Admin: 03/08/18 09:17 Dose: 1 drop Heparin Sodium (Porcine) (Heparin -) 5,000 unit SQ TID [facility] Last Admin: 03/08/18 05:51 Dose: 5,000 unit Sodium Chloride (Normal Saline -) 1,000 mls @ 100 mls/hr IV ASDIR REPLACED BY [facility] Last Admin: 03/08/18 02:11 Dose: 100 mls/hr Insulin Aspart (Novolog Vial Sliding Scale -) 1 vial SQ ACHS [facility]PL[facility]; Protocol Last Admin: 03/08/18 10:59 Dose: Not Given Lisinopril (Prinivil) 40 mg PO DAILY [facility] Last Admin: 03/08/18 09:16 Dose: 40 mg Metoprolol Succinate (Toprol Xl -) 25 mg PO DAILY [facility] Last Admin: 03/08/18 09:16 Dose: 25 mg Polyethylene Glycol (Miralax (For Daily Use) -) 17 gm PO DAILY [facility] Last Admin: 03/08/18 10:37 Dose: 17 gm Potassium Phos/Sodium Phos (Phos-Nak Packet -) 1 packet PO BID [facility] Stop: 03/09/18 10:59 Last Admin: 03/08/18 11:09 Dose: 1 packet Senna (Senna -) 1 tab PO HS [facility] Last Admin: 03/07/18 22:04 Dose: 1 tab Timolol Maleate (Timoptic 0.5%) 1 drop OU DAILY [facility] Last Admin: 03/08/18 09:17 Dose: 1 drop Home Medications Medication Instructions Recorded Dorzolamide/Timolol/Pf [Timolol 10 ml OP DAILY 03/06/18 0.5%-Dorzolamide 2%] Lisinopril [Prinivil -] 40 mg PO DAILY 03/06/18 Metformin HCl [Metformin HCl ER] 500 mg PO DAILY 03/06/18 Pravastatin Sodium 10 mg PO DAILY 03/06/18 Aspirin [ASA -] 81 mg PO DAILY #30 tab.chew 03/07/18 Metoprolol Succinate [Toprol Xl] 200 mg PO DAILY 03/07/18 Nitroglycerin 0.4 mg SL PRN 03/07/18 ASSESSMENT/PLAN: A 77 y.o. M w/ PMHx. of HTN, DM2, HLD, CAD s/p CABG (1989) presents to the ED two days after an unwitnessed fall. #Cardiology -Syncope EKG showed sinus rhythm, 1st degree AV block, RBBB Troponin--> 0.67-->0.61-->0.51 Echo: LV and RV normal, trace TR and MR, mild AR, mildly dilated atria, EF: 55% Consult w/ Dr. Cuellar appreciated--> Stress test as outpatient if symptoms continue to resolve, if worsening will do as inpatient. -HLD-stable Hold statins b/c of increased LFTs -HTN-stable c/w Metoprolol 25mg BID -CAD-resolving elevated troponins likely demand ischmemia 2/2 fall, starvation and rhabdomyolysis c/w ASA 81mg c/w cardiac monitoring #Neurology -Syncope Head CT/ Facial CT/C-spine CT- no acute pathology Neurovascular checks CT Chest- C5-C6 degenerative disc disease with central spinal canal stenosis. #Gastroenterology -Constipation started Senna, Colace and Miralax -Transaminitis-resolving Elevated AST and ALT, both trending down c/w Trending LFTs Abd US: No acute pathology #Endocrine -NIDDM-stable ISS-ACHS BGM-ACHS HgB A1c: 6.4% #Musculoskeletal -Rhabdomyolysis 2/2 Traumatic fall -resolving CPK: 19,620-->19,616-->11,603-->8,811--> 10,514 #F/E/N -d/c IVF, encourage PO intake -monitor electrolytes ad replete as needed -Regular Diet #DVT Ppx. -Heparin SQ TID #Dispo Pt. walked 200 ft. with PT discharge planning Visit type - Emergency Visit Emergency Visit: No - New Patient This patient is new to me today: No - Critical Care Critical Care patient: No - Discharge Referral Referred to [facility] Med P.C.: No
[2018-03-08] MEDS ORDERED: SODIUM CHLORIDE 1,000 ML IV SCH (17:00)
--- NOTE | 2018-03-08 20:03 | PN ---
Teaching Attending Note Name of Resident: Sedrick Naidu ATTENDING PHYSICIAN STATEMENT I saw and evaluated the patient. I reviewed the resident's note and discussed the case with the resident. I agree with the resident's findings and plan as documented. SUBJECTIVE: Patient is feeling better with no acute distress, feeling better. No headache, no nausea or vomiting. OBJECTIVE: Vital Signs Temperature 99 F 03/08/18 19:53 Pulse Rate 70 03/08/18 19:53 Respiratory Rate 18 03/08/18 19:53 Blood Pressure 138/68 03/08/18 19:53 O2 Sat by Pulse Oximetry (%) 99 03/08/18 19:53 GENERAL: Awake, alert, oriented to person, place, time in no acute distress. HEAD: Normocephalic. Bruising noted over left cheek. EYES: Pupils equal, round and reactive to light, extraocular movements intact, sclera anicteric, conjunctiva clear b/l. EARS, NOSE, THROAT: Dry mucous membranes. Thrush noted on tongue. NECK: Supple without lymphadenopathy, JVD. LUNGS: Breath sounds equal, clear to auscultation bilaterally. No wheezes, and no crackles. No accessory muscle use. HEART: Regular rate and rhythm, normal S1 and S2 without murmur, rub or gallop. ABDOMEN: Soft, nontender, not distended, normoactive bowel sounds, no guarding, no rebound, no masses. EXTREMITIES: 2+ radial pulses b/l. Strength 4/5 b/l upper extremities in flexion , extension, abduction, adduction. NEUROLOGICAL: Cranial nerves II-XII intact. Normal speech. SKIN: Bruising and scratches along b/l medial knees. CBCD WBC 6.9 K/mm3 (4.0-10.0) 03/08/18 05:30 RBC 4.79 M/mm3 (4.00-5.60) 03/08/18 05:30 Hgb 15.0 GM/dL (11.7-16.9) 03/08/18 05:30 Hct 44.8 % (35.4-49) 03/08/18 05:30 MCV 93.5 fl (80-96) 03/08/18 05:30 MCHC 33.4 g/dl (32.0-35.9) 03/08/18 05:30 RDW 14.4 % (11.9-15.9) 03/08/18 05:30 Plt Count 118 K/MM3 (134-434) L 03/08/18 05:30 MPV 8.9 fl (7.5-11.1) 03/08/18 05:30 CMP Sodium 138 mmol/L (136-145) 03/08/18 05:30 Potassium 3.7 mmol/L (3.5-5.1) 03/08/18 05:30 Chloride 99 mmol/L (98-107) 03/08/18 05:30 Carbon Dioxide 32 mmol/L (21-32) 03/08/18 05:30 Anion Gap 7 MMOL/L (8-16) L 03/08/18 05:30 BUN 13 mg/dL (7-18) 03/08/18 05:30 Creatinine 0.5 mg/dL (0.55-1.3) L 03/08/18 05:30 Creat Clearance w eGFR > 60 (>60) 03/08/18 05:30 Random Glucose 103 mg/dL (74-106) 03/08/18 05:30 Calcium 8.4 mg/dL (8.5-10.1) L 03/08/18 05:30 Total Bilirubin 1.9 mg/dL (0.2-1) H 03/07/18 05:30 AST 332 U/L (15-37) H 03/07/18 05:30 ALT 72 U/L (13-61) H 03/07/18 05:30 Alkaline Phosphatase 58 U/L (45-117) 03/07/18 05:30 Total Protein 5.3 g/dl (6.4-8.2) L 03/07/18 05:30 Albumin 2.9 g/dl (3.4-5.0) L 03/07/18 05:30 CARDIAC ENZYMES Creatine Kinase 23649 IU/L (26-308) H 03/08/18 05:30 Troponin I 0.51 ng/ml (0.00-0.05) H 03/06/18 12:50 Current Medications Generic Name Dose Route Start Last Admin Trade Name Freq PRN Reason Stop Dose Admin Aspirin 81 mg 03/06/18 10:00 03/08/18 09:16 Asa - PO 81 mg DAILY [facility] Administration Bacitracin 1 applic 03/06/18 17:15 03/08/18 09:16 Bacitracin - TP 1 applic DAILY [facility] Administration Docusate Sodium 100 mg 03/07/18 14:15 03/08/18 09:16 Colace - PO 100 mg DAILY [facility] Administration Dorzolamide HCl 1 drop 03/06/18 10:00 03/08/18 09:17 Trusopt 2% OU 1 drop DAILY [facility] Administration Heparin Sodium (Porcine) 5,000 unit 03/06/18 06:00 03/08/18 15:29 Heparin - SQ 5,000 unit TID [facility] Administration Sodium Chloride 1,000 mls @ 100 mls/hr 03/07/18 18:11 03/08/18 02:11 Normal Saline - IV 100 mls/hr ASDIR [facility] Administration Sodium Chloride 1,000 mls @ 50 mls/hr 03/08/18 17:00 03/08/18 17:36 Normal Saline - IV 03/09/18 12:59 50 mls/hr ASDIR [facility] Administration Insulin Aspart 1 vial 03/06/18 07:00 03/08/18 17:35 Novolog Vial Sliding Scale - SQ Not Given ACHS [facility] Protocol Lisinopril 40 mg 03/07/18 10:00 03/08/18 09:16 Prinivil PO 40 mg DAILY [facility] Administration Metoprolol Succinate 25 mg 03/06/18 10:00 03/08/18 09:16 Toprol Xl - PO 25 mg DAILY [facility] Administration Polyethylene Glycol 17 gm 03/07/18 14:15 03/08/18 10:37 Miralax (For Daily Use) - PO 17 gm DAILY [facility] Administration Potassium Phos/Sodium Phos 1 packet 03/08/18 11:00 03/08/18 11:09 Phos-Nak Packet - PO 03/09/18 10:59 1 packet BID [facility] Administration Senna 1 tab 03/07/18 22:00 03/07/18 22:04 Senna - PO 1 tab HS [facility] Administration Timolol Maleate 1 drop 03/06/18 10:00 03/08/18 09:17 Timoptic 0.5% OU 1 drop DAILY [facility] Administration Home Medications Medication Instructions Recorded Dorzolamide/Timolol/Pf [Timolol 10 ml OP DAILY 03/06/18 0.5%-Dorzolamide 2%] Lisinopril [Prinivil -] 40 mg PO DAILY 03/06/18 Metformin HCl [Metformin HCl ER] 500 mg PO DAILY 03/06/18 Pravastatin Sodium 10 mg PO DAILY 03/06/18 Aspirin [ASA -] 81 mg PO DAILY #30 tab.chew 03/07/18 Metoprolol Succinate [Toprol Xl] 200 mg PO DAILY 03/07/18 Nitroglycerin 0.4 mg SL PRN 03/07/18 ASSESSMENT AND PLAN: Patient is 77 yo male with PMHx of CAD s/p CABG 1989, HTN, HLD, NIDDM, brought in ED after mechanical fall, being on the floor for 2 days. #Mechanical fall with elevated CPK , trending down #Rhabdomyolysis, trending down. will follow. hold Pravastatin #Multiple abrasions chin/knees/extremities #Elevated troponin due to demand ischemia from rhabdomyolysis #HTN continue Toprol XL/Lisinopril #CAD s/p CABG 1989 continue Toprol #HLD will hold Pravastatin due Rhabdomyolysis DVT PX: Heparin sq
[2018-03-08] MEDS: SENNOSIDES 8.6MG TABLET (FP) PO SCH ×2 (21:07→21:10)
[2018-03-09] MEDS: HEPARIN NA (PORCINE) 5,000 UNITS/ML 1ML VIAL SQ SCH ×3 (05:51→21:09)
[2018-03-09] MEDS: INSULIN SLIDING SCALE (NOVOLOG) 1 VIAL SQ SCH ×4 (06:00→21:09)
[2018-03-09 07:10] LABS: HEMATOCRIT 43.1 % (35.4-49); HEMOGLOBIN 14.5 GM/dL (11.7-16.9); MCH 31.3 pg (25.7-33.7); MCHC 33.6 g/dl (32.0-35.9); MEAN CELL VOLUME 93.1 fl (80-96); MEAN PLT VOLUME 9.1 fl (7.5-11.1); PLATELET COUNT 116 K/MM3 (134-434); RBC 4.63 M/mm3 (4.00-5.60); RDW 14.3 % (11.9-15.9)
[2018-03-09 08:06] LABS: ANION GAP 8 MMOL/L (8-16); BLOOD UREA NITROGEN 14 mg/dL (7-18); CALCIUM 8.2 mg/dL (8.5-10.1); CHLORIDE 100 mmol/L (98-107); CO2 29 mmol/L (21-32); CREATININE 0.5 mg/dL (0.55-1.3); GLUCOSE,RANDOM 94 mg/dL (74-106); MAGNESIUM 1.9 mg/dL (1.8-2.4); SODIUM 137 mmol/L (136-145)
--- NOTE | 2018-03-09 08:57 | PN ---
Teaching Attending Note Name of Resident: Sedrick Naidu ATTENDING PHYSICIAN STATEMENT I saw and evaluated the patient. I reviewed the resident's note and discussed the case with the resident. I agree with the resident's findings and plan as documented. SUBJECTIVE: Patient is feeling better with no acute distress. OBJECTIVE: Vital Signs Temperature 98.4 F 03/09/18 06:00 Pulse Rate 62 03/09/18 06:00 Respiratory Rate 18 03/09/18 06:00 Blood Pressure 141/80 03/09/18 06:00 O2 Sat by Pulse Oximetry (%) 99 03/08/18 21:00 GENERAL: Awake, alert, oriented to person, place, time in no acute distress. HEAD: Normocephalic. Bruising noted over left cheek. EYES: Pupils equal, round and reactive to light, extraocular movements intact, conjunctiva clear b/l. EARS, NOSE, THROAT: Dry mucous membranes. Thrush noted on tongue. NECK: Supple without lymphadenopathy, JVD. LUNGS: Breath sounds equal, clear to auscultation bilaterally. No wheezes, and no crackles. No accessory muscle use. HEART: Regular rate and rhythm, normal S1 and S2 without murmur, rub or gallop. ABDOMEN: Soft, nontender, not distended, normoactive bowel sounds, no guarding, no rebound, no masses. EXTREMITIES: 2+ radial pulses b/l. No edema. NEUROLOGICAL: Cranial nerves II-XII intact. Normal speech. PSYCHIATRIC: Cooperative. Good eye contact. Appropriate mood and affect. SKIN: Bruising and scratches along b/l medial knees. CBCD WBC 7.0 K/mm3 (4.0-10.0) 03/09/18 05:30 RBC 4.63 M/mm3 (4.00-5.60) 03/09/18 05:30 Hgb 14.5 GM/dL (11.7-16.9) 03/09/18 05:30 Hct 43.1 % (35.4-49) 03/09/18 05:30 MCV 93.1 fl (80-96) 03/09/18 05:30 MCHC 33.6 g/dl (32.0-35.9) 03/09/18 05:30 RDW 14.3 % (11.9-15.9) 03/09/18 05:30 Plt Count 116 K/MM3 (134-434) L 03/09/18 05:30 MPV 9.1 fl (7.5-11.1) 03/09/18 05:30 CMP Sodium 137 mmol/L (136-145) 03/09/18 05:30 Potassium 4.0 mmol/L (3.5-5.1) 03/09/18 05:30 Chloride 100 mmol/L (98-107) 03/09/18 05:30 Carbon Dioxide 29 mmol/L (21-32) 03/09/18 05:30 Anion Gap 8 MMOL/L (8-16) 03/09/18 05:30 BUN 14 mg/dL (7-18) 03/09/18 05:30 Creatinine 0.5 mg/dL (0.55-1.3) L 03/09/18 05:30 Creat Clearance w eGFR > 60 (>60) 03/09/18 05:30 Random Glucose 94 mg/dL (74-106) 03/09/18 05:30 Calcium 8.2 mg/dL (8.5-10.1) L 03/09/18 05:30 Total Bilirubin 1.9 mg/dL (0.2-1) H 03/07/18 05:30 AST 332 U/L (15-37) H 03/07/18 05:30 ALT 72 U/L (13-61) H 03/07/18 05:30 Alkaline Phosphatase 58 U/L (45-117) 03/07/18 05:30 Total Protein 5.3 g/dl (6.4-8.2) L 03/07/18 05:30 Albumin 2.9 g/dl (3.4-5.0) L 03/07/18 05:30 CARDIAC ENZYMES Creatine Kinase 6049 IU/L (26-308) H 03/09/18 05:30 Troponin I 0.51 ng/ml (0.00-0.05) H 03/06/18 12:50 Current Medications Generic Name Dose Route Start Last Admin Trade Name Ricardoq PRN Reason Stop Dose Admin Aspirin 81 mg 03/06/18 10:00 03/08/18 09:16 Asa - PO 81 mg DAILY LATOYA Administration Bacitracin 1 applic 03/06/18 17:15 03/08/18 09:16 Bacitracin - TP 1 applic DAILY [facility] Administration Docusate Sodium 100 mg 03/07/18 14:15 03/08/18 09:16 Colace - PO 100 mg DAILY [facility] Administration Dorzolamide HCl 1 drop 03/06/18 10:00 03/08/18 09:17 Trusopt 2% OU 1 drop DAILY [facility] Administration Heparin Sodium (Porcine) 5,000 unit 03/06/18 06:00 03/09/18 05:51 Heparin - SQ 5,000 unit TID LATOYA Administration Sodium Chloride 1,000 mls @ 100 mls/hr 03/07/18 18:11 03/08/18 21:11 Normal Saline - IV Not Given ASDIR LATOYA Sodium Chloride 1,000 mls @ 50 mls/hr 03/08/18 17:00 03/08/18 17:36 Normal Saline - IV 03/09/18 12:59 50 mls/hr ASDIR [facility] Administration Insulin Aspart 1 vial 03/06/18 07:00 03/09/18 06:00 Novolog Vial Sliding Scale - SQ Not Given ACHS [facility] Protocol Lisinopril 40 mg 03/07/18 10:00 03/08/18 09:16 Prinivil PO 40 mg DAILY [facility]OYA Administration Metoprolol Succinate 25 mg 03/06/18 10:00 03/08/18 09:16 Toprol Xl - PO 25 mg DAILY [facility] Administration Polyethylene Glycol 17 gm 03/07/18 14:15 03/08/18 10:37 Miralax (For Daily Use) - PO 17 gm DAILY [facility] Administration Potassium Phos/Sodium Phos 1 packet 03/08/18 11:00 03/08/18 21:06 Phos-Nak Packet - PO 03/09/18 10:59 1 packet BID [facility]OYA Administration Senna 1 tab 03/07/18 22:00 03/08/18 21:10 Senna - PO Not Given HS LATOYA Timolol Maleate 1 drop 03/06/18 10:00 03/08/18 09:17 Timoptic 0.5% OU 1 drop DAILY [facility] Administration Home Medications Medication Instructions Recorded Dorzolamide/Timolol/Pf [Timolol 10 ml OP DAILY 03/06/18 0.5%-Dorzolamide 2%] Lisinopril [Prinivil -] 40 mg PO DAILY 03/06/18 Metformin HCl [Metformin HCl ER] 500 mg PO DAILY 03/06/18 Pravastatin Sodium 10 mg PO DAILY 03/06/18 Aspirin [ASA -] 81 mg PO DAILY #30 tab.chew 03/07/18 Metoprolol Succinate [Toprol Xl] 200 mg PO DAILY 03/07/18 Nitroglycerin 0.4 mg SL PRN 03/07/18 ASSESSMENT AND PLAN: Patient is 77 yo male with PMHx of CAD s/p CABG 1989, HTN, HLD, NIDDM, brought in ED after mechanical fall, being on the floor for 2 days. #Acute Rhabdomyolysis improving, trending down. hold Pravastatin #Mechanical fall with elevated CPK , will continue to monitor #Multiple abrasions chin/knees/extremities due to fall #Elevated troponin due to demand ischemia from rhabdomyolysis #HTN continue Toprol XL/Lisinopril #CAD s/p CABG 1989 continue Toprol #HLD will hold Pravastatin due Rhabdomyolysis DVT PX: Heparin sq
[2018-03-09] MEDS: DOCUSATE SODIUM 100 MG CAPSULE (FP) PO SCH (09:41)
[2018-03-09] MEDS: NAPH,MB-DB/K PH,MBDB POWDER PACKET PO SCH (09:42)
[2018-03-09] MEDS: ASPIRIN 81 MG CHEWABLE TABLETS PO SCH (09:42)
[2018-03-09] MEDS: BACITRACIN 15 GM TUBE TOPICAL OINTMENT TP SCH (09:42)
[2018-03-09] MEDS: LISINOPRIL 20 MG TABLET (FP) PO SCH (09:42)
[2018-03-09] MEDS: metoPROLOL SUCCINATE 25 MG TAB.SR.24H (FP) PO SCH (09:42)
[2018-03-09] MEDS: POLYETHYLENE GLYCOL 3350 119 GM BTL PO SCH (09:43)
[2018-03-09] MEDS: DORZOLAMIDE 2% HCL OPHTHALMIC SOLUTION 10 ML BOTTLE OU SCH (09:44)
[2018-03-09] MEDS: TIMOLOL 0.5% OPHTHALMIC SOL 5 ML BOTTLE OU SCH (09:44)
--- NOTE | 2018-03-09 11:28 | PN ---
Progress Note (short form) - Note Progress Note: s: no cp sob palps dizzy, walked with PT today, felt ok o: Vital Signs Period Temp Pulse Resp BP Sys/Becerril Pulse Ox Last 24 Hr 98 F-99 F 62-76 18-18 138-156/62-85 99 Constitutional: Yes: Well Nourished, No Distress Eyes: No: Sclera Icterus Respiratory: Yes: CTA Bilaterally No: Accessory Muscle Use, Rales, Wheezes Gastrointestinal: Yes: Normal Bowel Sounds. No: Distention, Hepatomegaly, Palpable Mass, Tenderness Cardiovascular: Yes: Regular Rate and Rhythm JVD: No Heart Sounds: Yes: S1, S2. No: Gallop Murmur: No: Systolic Murmur, Diastolic Murmur Extremities: No: Cool, Cyanosis Edema: No Integumentary: No: Jaundice diaphoresis Neurological: Yes: Alert, Oriented (x3) Psychiatric: No: Agitated Current Medications Generic Name Dose Route Start Last Admin Trade Name Freq PRN Reason Stop Dose Admin Aspirin 81 mg 03/06/18 10:00 03/09/18 09:42 Asa - PO 81 mg DAILY [facility] Administration Bacitracin 1 applic 03/06/18 17:15 03/09/18 09:42 Bacitracin - TP 1 applic DAILY [facility] Administration Docusate Sodium 100 mg 03/07/18 14:15 03/09/18 09:41 Colace - PO 100 mg DAILY [facility] Administration Dorzolamide HCl 1 drop 03/06/18 10:00 03/09/18 09:44 Trusopt 2% OU 1 drop DAILY [facility] Administration Heparin Sodium (Porcine) 5,000 unit 03/06/18 06:00 03/09/18 05:51 Heparin - SQ 5,000 unit TID [facility] Administration Sodium Chloride 1,000 mls @ 100 mls/hr 03/07/18 18:11 03/08/18 21:11 Normal Saline - IV Not Given ASDIR [facility]OYA Sodium Chloride 1,000 mls @ 50 mls/hr 03/08/18 17:00 03/08/18 17:36 Normal Saline - IV 03/09/18 12:59 50 mls/hr ASDIR [facility] Administration Insulin Aspart 1 vial 03/06/18 07:00 03/09/18 06:00 Novolog Vial Sliding Scale - SQ Not Given ACHS [facility] Protocol Lisinopril 40 mg 03/07/18 10:00 03/09/18 09:42 Prinivil PO 40 mg DAILY [facility] Administration Metoprolol Succinate 25 mg 03/06/18 10:00 03/09/18 09:42 Toprol Xl - PO 25 mg DAILY [facility] Administration Polyethylene Glycol 17 gm 03/07/18 14:15 03/09/18 09:43 Miralax (For Daily Use) - PO Not Given DAILY [facility]OYA Senna 1 tab 03/07/18 22:00 03/08/18 21:10 Senna - PO Not Given HS [facility]OYA Timolol Maleate 1 drop 03/06/18 10:00 03/09/18 09:44 Timoptic 0.5% OU 1 drop DAILY [facility] Administration CBC, BMP 03/09/18 05:30 03/09/18 05:30 Assessment/Plan ECG 03/05 (22:40): NSR with RBBB and LAFB. RBBB-associated repol changes in V1- V3. no signif change vs prior office ecg 09/29 CXR: clear lungs/pleura Echo: nl LV/EF. no RWMA described. nl RV. mild L/NASIMA. mild AI. MIBI 2015: 9:30min, no STs, no isch; nl EF, no LVE/TID s/p fall, +rhabdo: -mechanical fall, triggered by hip pain radiating to legs with leg weakness; -likely spine or other neurogenic etiology--? spinal disc herniation. per hospitalist -history not suggestive of acute abdominal aorta pathology, no bp lability here -CPK 19K initially, trending down with IVF elevated trop, chronic ischemic heart disease: -S/P CABG 1989 -LONG H/O ? 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 trop 0.6 x 2, then 0.5 = flat trend not c/w ACS. Type II [place] sec to acute stressors of fall with severe pain and prolonged time on floor. -no anti-thrombotic/AC med indicated here -will repeat nuclear stress test routinely as outpt for risk stratification, as long as remains asymptomatic here -CONT HOME ASA, BB -hold statin given elevated AST, ck Essential hypertension: -CONT HOME REGIMEN LISINOPRIL 40, METOPR SUCC 25 Pure hypercholesterolemia: -holding statin 2/2 rhabdo cardiac jeffery stable
[2018-03-09] MEDS: SODIUM CHLORIDE 1,000 ML IV SCH ×2 (11:49→19:00)
--- NOTE | 2018-03-09 15:03 | PN ---
Physical Exam: SUBJECTIVE: Patient seen and examined. No acute events overnight. Pt. denies any complaints. Pt. denies any chest pain, shortness of breath, or decreased urine output at this time. OBJECTIVE: Vital Signs Period Temp Pulse Resp BP Sys/Becerril Pulse Ox Last 24 Hr 98 F-99 F 62-76 18-18 137-156/62-85 99 GENERAL: The patient is awake, alert, and fully oriented, in no acute distress. EYES: sclera anicteric, conjunctiva clear. No ptosis. ENT: Ears normal, nares patent, oropharynx clear without exudates, moist mucous membranes. LUNGS: Breath sounds equal, clear to auscultation bilaterally, no wheezes, no crackles, no accessory muscle use. HEART: Irregular rate and rhythm ABDOMEN: Soft, nontender, nondistended, normoactive bowel sounds, no guarding, no rebound EXTREMITIES: 2+ left dorsal pedal pulse, warm, well-perfused, no calf tenderness , no edema. NEUROLOGICAL: Normal speech, gait not observed. PSYCH: Normal mood, normal affect. SKIN: Warm, dry, normal turgor, no rashes or lesions noted Laboratory Results - last 24 hr 03/06/18 03/08/18 03/08/18 04:09 17:33 21:09 WBC RBC Hgb Hct MCV MCH MCHC RDW Plt Count MPV Sodium Potassium Chloride Carbon Dioxide Anion Gap BUN Creatinine Creat Clearance w eGFR POC Glucometer 87 126 Random Glucose Calcium Phosphorus Magnesium Creatine Kinase Creatine Kinase Index CK-MB (CK-2) Urine Myoglobin 758 H 03/09/18 03/09/18 03/09/18 05:11 05:30 05:30 WBC 7.0 RBC 4.63 Hgb 14.5 Hct 43.1 MCV 93.1 MCH 31.3 MCHC 33.6 RDW 14.3 Plt Count 116 L MPV 9.1 Sodium 137 Potassium 4.0 Chloride 100 Carbon Dioxide 29 Anion Gap 8 BUN 14 Creatinine 0.5 L Creat Clearance w eGFR > 60 POC Glucometer 100 Random Glucose 94 Calcium 8.2 L Phosphorus 3.0 Magnesium 1.9 Creatine Kinase 6049 H Creatine Kinase Index 0.1 CK-MB (CK-2) 9.0 H Urine Myoglobin 03/09/18 11:51 WBC RBC Hgb Hct MCV MCH MCHC RDW Plt Count MPV Sodium Potassium Chloride Carbon Dioxide Anion Gap BUN Creatinine Creat Clearance w eGFR POC Glucometer 101 Random Glucose Calcium Phosphorus Magnesium Creatine Kinase Creatine Kinase Index CK-MB (CK-2) Urine Myoglobin Active Medications Current Medications Aspirin (Asa -) 81 mg PO DAILY [facility] Last Admin: 03/09/18 09:42 Dose: 81 mg Bacitracin (Bacitracin -) 1 applic TP DAILY [facility] Last Admin: 03/09/18 09:42 Dose: 1 applic Docusate Sodium (Colace -) 100 mg PO DAILY [facility] Last Admin: 03/09/18 09:41 Dose: 100 mg Dorzolamide HCl (Trusopt 2%) 1 drop OU DAILY [facility] Last Admin: 03/09/18 09:44 Dose: 1 drop Heparin Sodium (Porcine) (Heparin -) 5,000 unit SQ TID [facility] Last Admin: 03/09/18 05:51 Dose: 5,000 unit Sodium Chloride (Normal Saline -) 1,000 mls @ 100 mls/hr IV ASDIR [facility] Stop: 03/10/18 21:44 Last Admin: 03/09/18 11:49 Dose: 100 mls/hr Insulin Aspart (Novolog Vial Sliding Scale -) 1 vial SQ ACHS [facility]; Protocol Last Admin: 03/09/18 11:52 Dose: Not Given Lisinopril (Prinivil) 40 mg PO DAILY [facility] Last Admin: 03/09/18 09:42 Dose: 40 mg Metoprolol Succinate (Toprol Xl -) 25 mg PO DAILY [facility] Last Admin: 03/09/18 09:42 Dose: 25 mg Polyethylene Glycol (Miralax (For Daily Use) -) 17 gm PO DAILY [facility] Last Admin: 03/09/18 09:43 Dose: Not Given Senna (Senna -) 1 tab PO HS [facility] Last Admin: 03/08/18 21:10 Dose: Not Given Timolol Maleate (Timoptic 0.5%) 1 drop OU DAILY [facility] Last Admin: 03/09/18 09:44 Dose: 1 drop Home Medications Medication Instructions Recorded Dorzolamide/Timolol/Pf [Timolol 10 ml OP DAILY 03/06/18 0.5%-Dorzolamide 2%] Lisinopril [Prinivil -] 40 mg PO DAILY 03/06/18 Metformin HCl [Metformin HCl ER] 500 mg PO DAILY 03/06/18 Pravastatin Sodium 10 mg PO DAILY 03/06/18 Aspirin [ASA -] 81 mg PO DAILY #30 tab.chew 03/07/18 Metoprolol Succinate [Toprol Xl] 200 mg PO DAILY 03/07/18 Nitroglycerin 0.4 mg SL PRN 03/07/18 ASSESSMENT/PLAN: A 77 y.o. M w/ PMHx. of HTN, DM2, HLD, CAD s/p CABG (1989) presents to the ED two days after an unwitnessed fall. #Cardiology -Syncope EKG showed sinus rhythm, 1st degree AV block, RBBB Troponin--> 0.67-->0.61-->0.51 Echo: LV and RV normal, trace TR and MR, mild AR, mildly dilated atria, EF: 55% Consult w/ Dr. Cuellar appreciated--> Stress test as outpatient if symptoms continue to resolve, if worsening will do as inpatient. -HLD-stable Hold statins b/c of increased LFTs -HTN-stable c/w Metoprolol 25mg BID -CAD-resolving elevated troponins likely demand ischmemia 2/2 fall, starvation and rhabdomyolysis c/w ASA 81mg c/w cardiac monitoring #Neurology -Syncope Head CT/ Facial CT/C-spine CT- no acute pathology Neurovascular checks CT Chest- C5-C6 degenerative disc disease with central spinal canal stenosis. #Gastroenterology -Constipation-resolved started Senna, Colace and Miralax -Transaminitis-resolving Elevated AST and ALT, both trending down c/w Trending LFTs Abd US: No acute pathology #Endocrine -NIDDM-stable ISS-ACHS BGM-ACHS HgB A1c: 6.4% #Musculoskeletal -Rhabdomyolysis 2/2 Traumatic fall -resolving CPK: 19,620-->19,616-->11,603-->8,811--> 10,514-->6049 CPK should be under 1,000 for discharge. #F/E/N -NS @ 100ml/hr -encourage PO intake -monitor electrolytes ad replete as needed -Regular Diet #DVT Ppx. -Heparin SQ TID #Dispo Pt. walked 200 ft. with PT discharge planning Visit type - Emergency Visit Emergency Visit: Yes ED Registration Date: 03/06/18 Care time: The patient presented to the Emergency Department on the above date and was hospitalized for further evaluation of their emergent condition. - New Patient This patient is new to me today: No - Critical Care Critical Care patient: No - Discharge Referral Referred to [facility] No
[2018-03-09] MEDS: SENNOSIDES 8.6MG TABLET (FP) PO SCH (21:11)
[2018-03-10] MEDS: INSULIN SLIDING SCALE (NOVOLOG) 1 VIAL SQ SCH ×4 (06:21→21:29)
[2018-03-10] MEDS: HEPARIN NA (PORCINE) 5,000 UNITS/ML 1ML VIAL SQ SCH ×3 (06:21→21:24)
[2018-03-10 07:43] LABS: HEMATOCRIT 44.2 % (35.4-49); HEMOGLOBIN 15.1 GM/dL (11.7-16.9); MCHC 34.2 g/dl (32.0-35.9); MEAN CELL VOLUME 93.5 fl (80-96); MEAN PLT VOLUME 9.2 fl (7.5-11.1); PLATELET COUNT 140 K/MM3 (134-434); RBC 4.73 M/mm3 (4.00-5.60); RDW 14.7 % (11.9-15.9); WHITE BLOOD COUNT 6.4 K/mm3 (4.0-10.0)
--- NOTE | 2018-03-10 08:44 | PN ---
Progress Note (short form) - Note Progress Note: Patient is comfortable with no acute distress. Vital Signs Temperature 98.7 F 03/10/18 06:00 Pulse Rate 71 03/10/18 06:00 Respiratory Rate 18 03/10/18 06:00 Blood Pressure 151/78 03/10/18 06:00 O2 Sat by Pulse Oximetry (%) 99 03/10/18 08:38 GENERAL: Awake, alert, oriented to person, place, time in no acute distress. HEAD: Normocephalic. Bruising noted over left cheek. EYES: Pupils equal, round and reactive to light, extraocular movements intact b/ l. sclera anicteric, EARS, NOSE, THROAT: Dry mucous membranes. Thrush noted on tongue. NECK: Supple without lymphadenopathy, JVD. LUNGS: Breath sounds equal, clear to auscultation bilaterally. No wheezes, and no crackles. HEART: Regular rate and rhythm, normal S1 and S2 without murmur, rub or gallop. ABDOMEN: Soft, nontender, not distended, normoactive bowel sounds, no rebound, no masses. EXTREMITIES: 2+ radial pulses b/l. NEUROLOGICAL: Cranial nerves II-XII intact. Normal speech. PSYCHIATRIC: Cooperative. Good eye contact. Appropriate mood and affect. SKIN: Bruising and scratches along b/l medial knees. CBCD WBC 6.4 K/mm3 (4.0-10.0) 03/10/18 06:00 RBC 4.73 M/mm3 (4.00-5.60) 03/10/18 06:00 Hgb 15.1 GM/dL (11.7-16.9) 03/10/18 06:00 Hct 44.2 % (35.4-49) 03/10/18 06:00 MCV 93.5 fl (80-96) 03/10/18 06:00 MCHC 34.2 g/dl (32.0-35.9) 03/10/18 06:00 RDW 14.7 % (11.9-15.9) 03/10/18 06:00 Plt Count 140 K/MM3 (134-434) D 03/10/18 06:00 MPV 9.2 fl (7.5-11.1) 03/10/18 06:00 CMP Sodium 137 mmol/L (136-145) 03/09/18 05:30 Potassium 4.0 mmol/L (3.5-5.1) 03/09/18 05:30 Chloride 100 mmol/L (98-107) 03/09/18 05:30 Carbon Dioxide 29 mmol/L (21-32) 03/09/18 05:30 Anion Gap 8 MMOL/L (8-16) 03/09/18 05:30 BUN 14 mg/dL (7-18) 03/09/18 05:30 Creatinine 0.5 mg/dL (0.55-1.3) L 03/09/18 05:30 Creat Clearance w eGFR > 60 (>60) 03/09/18 05:30 Random Glucose 94 mg/dL (74-106) 03/09/18 05:30 Calcium 8.2 mg/dL (8.5-10.1) L 03/09/18 05:30 Total Bilirubin 1.9 mg/dL (0.2-1) H 03/07/18 05:30 AST 332 U/L (15-37) H 03/07/18 05:30 ALT 72 U/L (13-61) H 03/07/18 05:30 Alkaline Phosphatase 58 U/L (45-117) 03/07/18 05:30 Total Protein 5.3 g/dl (6.4-8.2) L 03/07/18 05:30 Albumin 2.9 g/dl (3.4-5.0) L 03/07/18 05:30 CARDIAC ENZYMES Creatine Kinase 6049 IU/L (26-308) H 03/09/18 05:30 Troponin I 0.51 ng/ml (0.00-0.05) H 03/06/18 12:50 Current Medications Generic Name Dose Route Start Last Admin Trade Name Freq PRN Reason Stop Dose Admin Aspirin 81 mg 03/06/18 10:00 03/09/18 09:42 Asa - PO 81 mg DAILY [facility]OYA Administration Bacitracin 1 applic 03/06/18 17:15 03/09/18 09:42 Bacitracin - TP 1 applic DAILY [facility]OY[facility] Administration Docusate Sodium 100 mg 03/07/18 14:15 03/09/18 09:41 Colace - PO 100 mg DAILY [facility]OYA Administration Dorzolamide HCl 1 drop 03/06/18 10:00 03/09/18 09:44 Trusopt 2% OU 1 drop DAILY [facility] Administration Heparin Sodium (Porcine) 5,000 unit 03/06/18 06:00 03/10/18 06:21 Heparin - SQ 5,000 unit TID [facility]OYA Administration Sodium Chloride 1,000 mls @ 100 mls/hr 03/09/18 11:45 03/09/18 19:00 Normal Saline - IV 03/10/18 21:44 100 mls/hr ASDIR [facility]OYA Administration Insulin Aspart 1 vial 03/06/18 07:00 03/10/18 06:21 Novolog Vial Sliding Scale - SQ Not Given ACHS [facility] Protocol Lisinopril 40 mg 03/07/18 10:00 03/09/18 09:42 Prinivil PO 40 mg DAILY [facility] Administration Metoprolol Succinate 25 mg 03/06/18 10:00 03/09/18 09:42 Toprol Xl - PO 25 mg DAILY [facility] Administration Polyethylene Glycol 17 gm 03/07/18 14:15 03/09/18 09:43 Miralax (For Daily Use) - PO Not Given DAILY [facility] Senna 1 tab 03/07/18 22:00 03/09/18 21:11 Senna - PO 1 tab HS [facility] Administration Timolol Maleate 1 drop 03/06/18 10:00 03/09/18 09:44 Timoptic 0.5% OU 1 drop DAILY [facility] Administration Home Medications Medication Instructions Recorded Dorzolamide/Timolol/Pf [Timolol 10 ml OP DAILY 03/06/18 0.5%-Dorzolamide 2%] Lisinopril [Prinivil -] 40 mg PO DAILY 03/06/18 Metformin HCl [Metformin HCl ER] 500 mg PO DAILY 03/06/18 Pravastatin Sodium 10 mg PO DAILY 03/06/18 Aspirin [ASA -] 81 mg PO DAILY #30 tab.chew 03/07/18 Metoprolol Succinate [Toprol Xl] 200 mg PO DAILY 03/07/18 Nitroglycerin 0.4 mg SL PRN 03/07/18 Laboratory Tests 03/05/18 03/06/18 03/06/18 23:14 06:00 12:50 Creatine Kinase 20363 H 70324 H 24098 H CK-MB (CK-2) Troponin I 0.64 H* 0.67 H* 03/07/18 03/08/18 03/09/18 05:30 05:30 05:30 Creatine Kinase 8811 H 28400 H 6049 H CK-MB (CK-2) 42.0 H Troponin I 03/10/18 06:00 Creatine Kinase 4839 H CK-MB (CK-2) Troponin I ASSESSMENT AND PLAN: Patient is 77 yo male with PMHx of CAD s/p CABG 1989, HTN, HLD, NIDDM, brought in ED after mechanical fall, being on the floor for 2 days. #Acute Rhabdomyolysis improving, trending down. continue to hold Pravastatin #Mechanical fall with elevated CPK trending now. #Multiple abrasions chin/knees/extremities due to fall #Elevated troponin due to demand ischemia from rhabdomyolysis #HTN continue Toprol XL/Lisinopril #CAD s/p CABG 1989 continue Toprol #HLD will hold Pravastatin due Rhabdomyolysis DVT PX: Heparin sq possible discharge in am Visit type - Emergency Visit Emergency Visit: Yes ED Registration Date: 03/06/18 Care time: The patient presented to the Emergency Department on the above date and was hospitalized for further evaluation of their emergent condition. - New Patient This patient is new to me today: Yes Date on this admission: 03/10/18 - Critical Care Critical Care patient: No
[2018-03-10 09:06] LABS: ANION GAP 9 MMOL/L (8-16); BLOOD UREA NITROGEN 21 mg/dL (7-18); CALCIUM 8.3 mg/dL (8.5-10.1); CHLORIDE 100 mmol/L (98-107); CO2 31 mmol/L (21-32); CREATININE 0.6 mg/dL (0.55-1.3); GLUCOSE,RANDOM 96 mg/dL (74-106); MAGNESIUM 1.8 mg/dL (1.8-2.4); PHOSPHOROUS 2.8 mg/dL (2.5-4.9); POTASSIUM 3.9 mmol/L (3.5-5.1); SODIUM 139 mmol/L (136-145)
--- NOTE | 2018-03-10 09:11 | PN ---
Progress Note, Physician - Current Medication List Current Medications: Active Medications Aspirin (Asa -) 81 mg PO DAILY [facility] Last Admin: 03/09/18 09:42 Dose: 81 mg Bacitracin (Bacitracin -) 1 applic TP DAILY [facility] Last Admin: 03/09/18 09:42 Dose: 1 applic Docusate Sodium (Colace -) 100 mg PO DAILY [facility] Last Admin: 03/09/18 09:41 Dose: 100 mg Dorzolamide HCl (Trusopt 2%) 1 drop OU DAILY [facility] Last Admin: 03/09/18 09:44 Dose: 1 drop Heparin Sodium (Porcine) (Heparin -) 5,000 unit SQ TID [facility] Last Admin: 03/10/18 06:21 Dose: 5,000 unit Sodium Chloride (Normal Saline -) 1,000 mls @ 100 mls/hr IV ASDIR [facility] Stop: 03/10/18 21:44 Last Admin: 03/09/18 19:00 Dose: 100 mls/hr Insulin Aspart (Novolog Vial Sliding Scale -) 1 vial SQ ACHS [facility]; Protocol Last Admin: 03/10/18 06:21 Dose: Not Given Lisinopril (Prinivil) 40 mg PO DAILY [facility] Last Admin: 03/09/18 09:42 Dose: 40 mg Metoprolol Succinate (Toprol Xl -) 25 mg PO DAILY [facility] Last Admin: 03/09/18 09:42 Dose: 25 mg Polyethylene Glycol (Miralax (For Daily Use) -) 17 gm PO DAILY [facility] Last Admin: 03/09/18 09:43 Dose: Not Given Senna (Senna -) 1 tab PO HS [facility] Last Admin: 03/09/18 21:11 Dose: 1 tab Timolol Maleate (Timoptic 0.5%) 1 drop OU DAILY [facility] Last Admin: 03/09/18 09:44 Dose: 1 drop - Objective Vital Signs: Vital Signs Temperature 98.5 F 03/10/18 08:43 Pulse Rate 73 03/10/18 08:43 Respiratory Rate 18 03/10/18 08:43 Blood Pressure 154/78 03/10/18 08:43 O2 Sat by Pulse Oximetry (%) 99 03/10/18 08:38 Labs: CBC, BMP 03/10/18 06:00 03/10/18 06:00 INR, PTT INR 1.11 (0.83-1.09) H 03/05/18 23:14 Assessment/Plan ECG 03/05 (22:40): NSR with RBBB and LAFB. RBBB-associated repol changes in V1- V3. no signif change vs prior office ecg 09/29 CXR: clear lungs/pleura Echo: nl LV/EF. no RWMA described. nl RV. mild L/NASIMA. mild AI. MIBI 2015: 9:30min, no STs, no isch; nl EF, no LVE/TID s/p fall, +rhabdo: -mechanical fall, triggered by hip pain radiating to legs with leg weakness; -history not suggestive of acute abdominal aorta pathology, no bp lability here -CPK 19K initially, trending down with IVF -likely spine or other neurogenic etiology--? spinal disc herniation -PT, plan per hospitalist elevated trop, chronic ischemic heart disease: -S/P CABG 1989 -LONG H/O ? 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 trop 0.6 x 2, then 0.5 = flat trend not c/w ACS. Type II MN sec to acute stressors of fall with severe pain and prolonged time on floor. -no anti-thrombotic/AC med indicated here -will repeat nuclear stress test routinely as outpt for risk stratification, as long as remains asymptomatic here -CONT HOME ASA, BB -hold statin given elevated AST, ck Essential hypertension: -bp acceptable -CONT HOME REGIMEN LISINOPRIL 40, METOPR SUCC 25 -reassess bp as outpt Pure hypercholesterolemia: -holding statin 2/2 rhabdo
[2018-03-10] MEDS: DOCUSATE SODIUM 100 MG CAPSULE (FP) PO SCH (09:34)
[2018-03-10] MEDS: LISINOPRIL 20 MG TABLET (FP) PO SCH (09:34)
[2018-03-10] MEDS: ASPIRIN 81 MG CHEWABLE TABLETS PO SCH (09:34)
[2018-03-10] MEDS: BACITRACIN 15 GM TUBE TOPICAL OINTMENT TP SCH (09:34)
[2018-03-10] MEDS: POLYETHYLENE GLYCOL 3350 119 GM BTL PO SCH (09:34)
[2018-03-10] MEDS: TIMOLOL 0.5% OPHTHALMIC SOL 5 ML BOTTLE OU SCH (09:35)
[2018-03-10] MEDS: DORZOLAMIDE 2% HCL OPHTHALMIC SOLUTION 10 ML BOTTLE OU SCH (09:36)
[2018-03-10] MEDS: metoPROLOL SUCCINATE 25 MG TAB.SR.24H (FP) PO SCH (09:36)
[2018-03-10] MEDS: SODIUM CHLORIDE 1,000 ML IV SCH (18:40)
[2018-03-10] MEDS ORDERED: INSULIN (NOVOLOG) ASPART 100 UNITS/ML 10ML VIAL ONE (21:08)
[2018-03-10] MEDS: SENNOSIDES 8.6MG TABLET (FP) PO SCH (21:24)
[2018-03-11] MEDS: SODIUM CHLORIDE 1,000 ML IV SCH ×2 (06:14→19:00)
[2018-03-11] MEDS: HEPARIN NA (PORCINE) 5,000 UNITS/ML 1ML VIAL SQ SCH ×3 (06:14→21:10)
[2018-03-11] MEDS: INSULIN SLIDING SCALE (NOVOLOG) 1 VIAL SQ SCH ×4 (06:18→21:11)
[2018-03-11] MEDS: BACITRACIN 15 GM TUBE TOPICAL OINTMENT TP SCH (10:03)
[2018-03-11] MEDS: DOCUSATE SODIUM 100 MG CAPSULE (FP) PO SCH (10:14)
[2018-03-11] MEDS: metoPROLOL SUCCINATE 25 MG TAB.SR.24H (FP) PO SCH (10:14)
[2018-03-11] MEDS: ASPIRIN 81 MG CHEWABLE TABLETS PO SCH (10:14)
[2018-03-11] MEDS: LISINOPRIL 20 MG TABLET (FP) PO SCH (10:14)
[2018-03-11] MEDS: POLYETHYLENE GLYCOL 3350 119 GM BTL PO SCH (10:15)
[2018-03-11] MEDS: DORZOLAMIDE 2% HCL OPHTHALMIC SOLUTION 10 ML BOTTLE OU SCH (10:16)
[2018-03-11] MEDS: TIMOLOL 0.5% OPHTHALMIC SOL 5 ML BOTTLE OU SCH (10:17)
--- NOTE | 2018-03-11 10:53 | PN ---
Progress Note, Physician Chief Complaint: hip pain, fall History of Present Illness: ongoing L hip pain. able to walk with PT no cp, sob, papit - Current Medication List Current Medications: Active Medications Aspirin (Asa -) 81 mg PO DAILY [facility] Last Admin: 03/11/18 10:14 Dose: 81 mg Bacitracin (Bacitracin -) 1 applic TP DAILY [facility] Docusate Sodium (Colace -) 100 mg PO DAILY [facility] Last Admin: 03/11/18 10:14 Dose: 100 mg Dorzolamide HCl (Trusopt 2%) 1 drop OU DAILY [facility] Last Admin: 03/11/18 10:16 Dose: 1 drop Heparin Sodium (Porcine) (Heparin -) 5,000 unit SQ TID [facility] Last Admin: 03/11/18 06:14 Dose: 5,000 unit Sodium Chloride (Normal Saline -) 1,000 mls @ 100 mls/hr IV ASDIR [facility] Stop: 03/12/18 04:44 Last Admin: 03/11/18 06:14 Dose: 100 mls/hr Insulin Aspart (Novolog Vial Sliding Scale -) 1 vial SQ ACHS [facility]; Protocol Last Admin: 03/11/18 06:18 Dose: Not Given Lisinopril (Prinivil) 40 mg PO DAILY [facility] Last Admin: 03/11/18 10:14 Dose: 40 mg Metoprolol Succinate (Toprol Xl -) 25 mg PO DAILY [facility] Last Admin: 03/11/18 10:14 Dose: 25 mg Polyethylene Glycol (Miralax (For Daily Use) -) 17 gm PO DAILY [facility] Last Admin: 03/11/18 10:15 Dose: 17 grams Senna (Senna -) 1 tab PO HS [facility] Last Admin: 03/10/18 21:24 Dose: 1 tab Timolol Maleate (Timoptic 0.5%) 1 drop OU DAILY [facility] Last Admin: 03/11/18 10:17 Dose: 1 drop - Objective Vital Signs: Vital Signs Temperature 98.8 F 03/11/18 10:00 Pulse Rate 73 03/11/18 10:00 Respiratory Rate 20 03/11/18 10:00 Blood Pressure 132/76 03/11/18 10:00 O2 Sat by Pulse Oximetry (%) 99 03/10/18 21:00 Constitutional: Yes: Well Nourished, No Distress, Calm Cardiovascular: Yes: Regular Rate and Rhythm, S1, S2. No: Gallop, Murmur Respiratory: Yes: Regular, CTA Bilaterally. No: Accessory Muscle Use Extremities: No: Cold Edema: No Neurological: Yes: Alert, Oriented Psychiatric: No: Agitated Labs: CBC, BMP 03/10/18 06:00 03/10/18 06:00 INR, PTT INR 1.11 (0.83-1.09) H 03/05/18 23:14 Assessment/Plan ECG 03/05 (22:40): NSR with RBBB and LAFB. RBBB-associated repol changes in V1- V3. no signif change vs prior office ecg 09/29 CXR: clear lungs/pleura Echo: nl LV/EF. no RWMA described. nl RV. mild L/NASIMA. mild AI. MIBI 2014: 9:30min, no STs, no isch; nl EF, no LVE/TID s/p fall, +rhabdo: -mechanical fall, triggered by hip pain radiating to legs with leg weakness; -likely spine or other neurogenic etiology--? spinal disc herniation. per hospitalist -history not suggestive of acute abdominal aorta pathology, no bp lability here -CPK 19K initially, trended down with IVF elevated trop, chronic ischemic heart disease: -S/P CABG 1989 -LONG H/O ? 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 trop 0.6 x 2, then 0.5 = flat trend not c/w ACS. Type II CT sec to acute stressors of fall with severe pain and prolonged time on floor. -no anti-thrombotic/AC med indicated here -will repeat nuclear stress test routinely as outpt for risk stratification, as long as remains asymptomatic here -CONT HOME ASA, BB -hold statin given elevated AST, ck--reassess once LFTs resolve -pt will f/u with me in office (has appt next month) Essential hypertension: -bp controlled -CONT HOME REGIMEN LISINOPRIL 40, METOPR SUCC 25 Pure hypercholesterolemia: -holding statin 2/2 rhabdo
--- NOTE | 2018-03-11 15:59 | PN ---
Physical Exam: SUBJECTIVE: Patient seen and examined. No acute events overnight. OBJECTIVE: Vital Signs Period Temp Pulse Resp BP Sys/Becerril Pulse Ox Last 24 Hr 98.7 F-99.8 F 72-86 20-22 108-140/63-76 99-99 GENERAL: The patient is awake, alert, and fully oriented, in no acute distress. EYES: sclera anicteric, conjunctiva clear. No ptosis. ENT: Ears normal, nares patent, oropharynx clear without exudates, moist mucous membranes. LUNGS: Breath sounds equal, clear to auscultation bilaterally, no wheezes, no crackles, no accessory muscle use. HEART: Irregular rate and rhythm ABDOMEN: Soft, nontender, nondistended, normoactive bowel sounds, no guarding, no rebound EXTREMITIES: 2+ left dorsal pedal pulse, warm, well-perfused, no calf tenderness , no edema. NEUROLOGICAL: Normal speech, gait not observed. PSYCH: Normal mood, normal affect. SKIN: Warm, dry, normal turgor, no rashes or lesions noted Laboratory Results - last 24 hr 03/10/18 03/10/18 03/11/18 16:41 21:28 06:17 POC Glucometer 101 126 115 Creatine Kinase Creatine Kinase Index CK-MB (CK-2) 03/11/18 03/11/18 07:09 11:47 POC Glucometer 115 Creatine Kinase 2431 H Creatine Kinase Index 0.1 CK-MB (CK-2) 3.9 H Active Medications Current Medications Aspirin (Asa -) 81 mg PO DAILY [facility] Last Admin: 03/11/18 10:14 Dose: 81 mg Bacitracin (Bacitracin -) 1 applic TP DAILY [facility] Last Admin: 03/11/18 10:03 Dose: 1 applic Docusate Sodium (Colace -) 100 mg PO DAILY [facility] Last Admin: 03/11/18 10:14 Dose: 100 mg Dorzolamide HCl (Trusopt 2%) 1 drop OU DAILY [facility] Last Admin: 03/11/18 10:16 Dose: 1 drop Heparin Sodium (Porcine) (Heparin -) 5,000 unit SQ TID [facility] Last Admin: 03/11/18 15:04 Dose: 5,000 unit Sodium Chloride (Normal Saline -) 1,000 mls @ 100 mls/hr IV ASDIR [facility] Stop: 03/12/18 04:44 Last Admin: 03/11/18 06:14 Dose: 100 mls/hr Insulin Aspart (Novolog Vial Sliding Scale -) 1 vial SQ ACHS [facility]; Protocol Last Admin: 03/11/18 11:48 Dose: Not Given Lisinopril (Prinivil) 40 mg PO DAILY [facility] Last Admin: 03/11/18 10:14 Dose: 40 mg Metoprolol Succinate (Toprol Xl -) 25 mg PO DAILY [facility] Last Admin: 03/11/18 10:14 Dose: 25 mg Polyethylene Glycol (Miralax (For Daily Use) -) 17 gm PO DAILY [facility] Last Admin: 03/11/18 10:15 Dose: 17 grams Senna (Senna -) 1 tab PO HS [facility] Last Admin: 03/10/18 21:24 Dose: 1 tab Timolol Maleate (Timoptic 0.5%) 1 drop OU DAILY [facility] Last Admin: 03/11/18 10:17 Dose: 1 drop Home Medications Medication Instructions Recorded Dorzolamide/Timolol/Pf [Timolol 10 ml OP DAILY 03/06/18 0.5%-Dorzolamide 2%] Lisinopril [Prinivil -] 40 mg PO DAILY 03/06/18 Metformin HCl [Metformin HCl ER] 500 mg PO DAILY 03/06/18 Pravastatin Sodium 10 mg PO DAILY 03/06/18 Aspirin [ASA -] 81 mg PO DAILY #30 tab.chew 03/07/18 Metoprolol Succinate [Toprol Xl] 200 mg PO DAILY 03/07/18 Nitroglycerin 0.4 mg SL PRN 03/07/18 ASSESSMENT/PLAN: A 77 y.o. M w/ PMHx. of HTN, DM2, HLD, CAD s/p CABG (1989) presents to the ED two days after an unwitnessed fall. #Cardiology -Syncope EKG showed sinus rhythm, 1st degree AV block, RBBB Troponin--> 0.67-->0.61-->0.51 Echo: LV and RV normal, trace TR and MR, mild AR, mildly dilated atria, EF: 55% Consult w/ Dr. Cuellar appreciated--> Stress test as outpatient if symptoms continue to resolve, if worsening will do as inpatient. -HLD-stable Hold statins b/c of increased LFTs -HTN-stable c/w Metoprolol 25mg BID -CAD-resolving elevated troponins likely demand ischmemia 2/2 fall, starvation and rhabdomyolysis c/w ASA 81mg c/w cardiac monitoring #Neurology -Syncope Head CT/ Facial CT/C-spine CT- no acute pathology Neurovascular checks CT Chest- C5-C6 degenerative disc disease with central spinal canal stenosis. #Gastroenterology -Constipation-resolved started Senna, Colace and Miralax -Transaminitis-resolving Elevated AST and ALT, both trending down c/w Trending LFTs Abd US: No acute pathology #Endocrine -NIDDM-stable ISS-ACHS BGM-ACHS HgB A1c: 6.4% #Musculoskeletal -Rhabdomyolysis 2/2 Traumatic fall -resolving CPK: 19,620-->19,616-->11,603-->8,811--> 10,514-->6049-->~4800-->2431 CPK should be under 1,000 for discharge. #F/E/N -NS @ 100ml/hr -encourage PO intake -monitor electrolytes ad replete as needed -Regular Diet #DVT Ppx. -Heparin SQ TID #Dispo Pt. walked 200 ft. with PT discharge planning Visit type - Emergency Visit Emergency Visit: Yes ED Registration Date: 03/06/18 Care time: The patient presented to the Emergency Department on the above date and was hospitalized for further evaluation of their emergent condition. - New Patient This patient is new to me today: No - Critical Care Critical Care patient: No - Discharge Referral Referred to [facility] Med P.C.: No
--- NOTE | 2018-03-11 17:52 | PN ---
Teaching Attending Note Name of Resident: Sedrick Naidu ATTENDING PHYSICIAN STATEMENT I saw and evaluated the patient. I reviewed the resident's note and discussed the case with the resident. I agree with the resident's findings and plan as documented. SUBJECTIVE: Patient has no new complains. OBJECTIVE: Vital Signs Temperature 98.7 F 03/11/18 14:46 Pulse Rate 78 03/11/18 14:46 Respiratory Rate 22 H 03/11/18 14:46 Blood Pressure 126/74 03/11/18 14:46 O2 Sat by Pulse Oximetry (%) 99 03/11/18 09:00 GENERAL: Awake, alert, oriented to person, place, time in no acute distress. HEAD: Normocephalic. Bruising noted over left cheek. EYES: Pupils equal, round and reactive to light, extraocular movements intact b/ l. sclera anicteric, EARS, NOSE, THROAT: Dry mucous membranes. Thrush noted on tongue. NECK: Supple without lymphadenopathy, JVD. LUNGS: Breath sounds equal, clear to auscultation bilaterally. No wheezes, and no crackles. HEART: Regular rate and rhythm, normal S1 and S2 without murmur, rub or gallop. ABDOMEN: Soft, nontender, not distended, normoactive bowel sounds, no rebound, no masses. EXTREMITIES: 2+ radial pulses b/l. NEUROLOGICAL: Cranial nerves II-XII intact. Normal speech. PSYCHIATRIC: Cooperative. Good eye contact. Appropriate mood and affect. SKIN: Bruising and scratches along b/l medial knees.CBCD WBC 6.4 K/mm3 (4.0-10.0) 03/10/18 06:00 RBC 4.73 M/mm3 (4.00-5.60) 03/10/18 06:00 Hgb 15.1 GM/dL (11.7-16.9) 03/10/18 06:00 Hct 44.2 % (35.4-49) 03/10/18 06:00 MCV 93.5 fl (80-96) 03/10/18 06:00 MCHC 34.2 g/dl (32.0-35.9) 03/10/18 06:00 RDW 14.7 % (11.9-15.9) 03/10/18 06:00 Plt Count 140 K/MM3 (134-434) D 03/10/18 06:00 MPV 9.2 fl (7.5-11.1) 03/10/18 06:00 CMP Sodium 139 mmol/L (136-145) 03/10/18 06:00 Potassium 3.9 mmol/L (3.5-5.1) 03/10/18 06:00 Chloride 100 mmol/L (98-107) 03/10/18 06:00 Carbon Dioxide 31 mmol/L (21-32) 03/10/18 06:00 Anion Gap 9 MMOL/L (8-16) 03/10/18 06:00 BUN 21 mg/dL (7-18) H 03/10/18 06:00 Creatinine 0.6 mg/dL (0.55-1.3) 03/10/18 06:00 Creat Clearance w eGFR > 60 (>60) 03/10/18 06:00 Random Glucose 96 mg/dL (74-106) 03/10/18 06:00 Calcium 8.3 mg/dL (8.5-10.1) L 03/10/18 06:00 Total Bilirubin 1.9 mg/dL (0.2-1) H 03/07/18 05:30 AST 332 U/L (15-37) H 03/07/18 05:30 ALT 72 U/L (13-61) H 03/07/18 05:30 Alkaline Phosphatase 58 U/L (45-117) 03/07/18 05:30 Total Protein 5.3 g/dl (6.4-8.2) L 03/07/18 05:30 Albumin 2.9 g/dl (3.4-5.0) L 03/07/18 05:30 CARDIAC ENZYMES Creatine Kinase 2431 IU/L (26-308) H 03/11/18 07:09 Troponin I 0.51 ng/ml (0.00-0.05) H 03/06/18 12:50 Current Medications Generic Name Dose Route Start Last Admin Trade Name Freq PRN Reason Stop Dose Admin Aspirin 81 mg 03/11/18 10:00 03/11/18 10:14 Asa - PO 81 mg DAILY [facility] Administration Bacitracin 1 applic 03/11/18 10:00 03/11/18 10:03 Bacitracin - TP 1 applic DAILY [facility] Administration Docusate Sodium 100 mg 03/11/18 10:00 03/11/18 10:14 Colace - PO 100 mg DAILY [facility] Administration Dorzolamide HCl 1 drop 03/11/18 10:00 03/11/18 10:16 Trusopt 2% OU 1 drop DAILY [facility] Administration Heparin Sodium (Porcine) 5,000 unit 03/10/18 14:00 03/11/18 15:04 Heparin - SQ 5,000 unit TID [facility] Administration Sodium Chloride 1,000 mls @ 100 mls/hr 03/10/18 18:45 03/11/18 06:14 Normal Saline - IV 03/12/18 04:44 100 mls/hr ASDIR [facility] Administration Insulin Aspart 1 vial 03/10/18 16:30 03/11/18 16:28 Novolog Vial Sliding Scale - SQ Not Given ACHS [facility] Protocol Lisinopril 40 mg 03/11/18 10:00 03/11/18 10:14 Prinivil PO 40 mg DAILY [facility] Administration Metoprolol Succinate 25 mg 03/11/18 10:00 03/11/18 10:14 Toprol Xl - PO 25 mg DAILY [facility] Administration Polyethylene Glycol 17 gm 03/11/18 10:00 03/11/18 10:15 Miralax (For Daily Use) - PO 17 grams DAILY [facility] Administration Senna 1 tab 03/10/18 22:00 03/10/18 21:24 Senna - PO 1 tab HS [facility] Administration Timolol Maleate 1 drop 03/11/18 10:00 03/11/18 10:17 Timoptic 0.5% OU 1 drop DAILY [facility] Administration Home Medications Medication Instructions Recorded Dorzolamide/Timolol/Pf [Timolol 10 ml OP DAILY 03/06/18 0.5%-Dorzolamide 2%] Lisinopril [Prinivil -] 40 mg PO DAILY 03/06/18 Metformin HCl [Metformin HCl ER] 500 mg PO DAILY 03/06/18 Pravastatin Sodium 10 mg PO DAILY 03/06/18 Aspirin [ASA -] 81 mg PO DAILY #30 tab.chew 03/07/18 Metoprolol Succinate [Toprol Xl] 200 mg PO DAILY 03/07/18 Nitroglycerin 0.4 mg SL PRN 03/07/18 Laboratory Tests 03/05/18 03/06/18 03/06/18 23:14 06:00 12:50 Creatine Kinase 26215 H 15165 H 01090 H CK-MB (CK-2) Troponin I 0.64 H* 0.67 H* 03/07/18 03/08/18 03/09/18 05:30 05:30 05:30 Creatine Kinase 8811 H 85893 H 6049 H CK-MB (CK-2) 42.0 H Troponin I 03/10/18 06:00 Creatine Kinase 4839 H CK-MB (CK-2) Troponin I ASSESSMENT AND PLAN: Patient is 77 yo male with PMHx of CAD s/p CABG 1989, HTN, HLD, NIDDM, brought in ED after mechanical fall, being on the floor for 2 days. #Acute Rhabdomyolysis improving, trending down. today is 2431, will continue to trend , continue to hold Pravastatin #Mechanical fall with elevated CPK trending now. #Multiple abrasions chin/knees/extremities due to fall #Elevated troponin due to demand ischemia from rhabdomyolysis #HTN continue Toprol XL/Lisinopril #CAD s/p CABG 1989 continue Toprol #HLD will hold Pravastatin due Rhabdomyolysis DVT PX: Heparin sq possible discharge in am once CPK below 1000
[2018-03-11] MEDS ORDERED: SODIUM CHLORIDE 1,000 ML IV SCH (18:15)
[2018-03-11] MEDS ORDERED: INSULIN (NOVOLOG) ASPART 100 UNITS/ML 10ML VIAL ONE (21:03)
[2018-03-11] MEDS: SENNOSIDES 8.6MG TABLET (FP) PO SCH (21:11)
[2018-03-11] MEDS ORDERED: ACETAMINOPHEN 325 MG TABLET (FP) PO ONE (23:45)
[2018-03-12] MEDS: SODIUM CHLORIDE 1,000 ML IV SCH ×2 (02:25→12:31)
[2018-03-12] MEDS: HEPARIN NA (PORCINE) 5,000 UNITS/ML 1ML VIAL SQ SCH ×2 (06:00→15:03)
[2018-03-12] MEDS: INSULIN SLIDING SCALE (NOVOLOG) 1 VIAL SQ SCH ×2 (06:04→11:25)
[2018-03-12 08:56] VITALS: BP 130/55; PULSE 82; TEMP 97.8
[2018-03-12] MEDS ORDERED: PT OWN MED DRAWER 7, Y5N ONE (09:23)
[2018-03-12] MEDS: LISINOPRIL 20 MG TABLET (FP) PO SCH (09:30)
[2018-03-12] MEDS: metoPROLOL SUCCINATE 25 MG TAB.SR.24H (FP) PO SCH (09:30)
[2018-03-12] MEDS: DOCUSATE SODIUM 100 MG CAPSULE (FP) PO SCH (09:30)
[2018-03-12] MEDS: ASPIRIN 81 MG CHEWABLE TABLETS PO SCH (09:30)
[2018-03-12] MEDS: POLYETHYLENE GLYCOL 3350 119 GM BTL PO SCH (09:32)
[2018-03-12] MEDS: TIMOLOL 0.5% OPHTHALMIC SOL 5 ML BOTTLE OU SCH (09:34)
[2018-03-12] MEDS: DORZOLAMIDE 2% HCL OPHTHALMIC SOLUTION 10 ML BOTTLE OU SCH (09:35)
[2018-03-12] MEDS: BACITRACIN 15 GM TUBE TOPICAL OINTMENT TP SCH (09:37)
--- NOTE | 2018-03-12 13:56 | DS ---
Physical Exam: SUBJECTIVE: Patient seen and examined. Pt. complained of back pain overnight, given Tylenol to good effect. OBJECTIVE: Vital Signs Period Temp Pulse Resp BP Sys/Becerril Pulse Ox Last 24 Hr 97.8 F-99.1 F 76-82 20-22 126-160/55-105 99-100 PHYSICAL EXAM GENERAL: The patient is awake, alert, and fully oriented, in no acute distress. EYES: sclera anicteric, conjunctiva clear. No ptosis. ENT: Ears normal, nares patent, oropharynx clear without exudates, moist mucous membranes. LUNGS: Breath sounds equal, clear to auscultation bilaterally, no wheezes, no crackles, no accessory muscle use. HEART: Irregular rate and rhythm ABDOMEN: Soft, nontender, nondistended, normoactive bowel sounds, no guarding, no rebound EXTREMITIES: 2+ left dorsal pedal pulse, warm, well-perfused, no calf tenderness , no edema. NEUROLOGICAL: Normal speech, gait not observed. PSYCH: Normal mood, normal affect. SKIN: Warm, dry, normal turgor, no rashes or lesions noted LABS Laboratory Results - last 24 hr 03/11/18 03/11/18 03/12/18 16:26 21:09 05:30 POC Glucometer 142 121 Creatine Kinase 1724 H Creatine Kinase Index 0.1 CK-MB (CK-2) 3.3 03/12/18 03/12/18 06:00 11:23 POC Glucometer 97 102 Creatine Kinase Creatine Kinase Index CK-MB (CK-2) HOSPITAL COURSE: Date of Admission:03/06/18 Date of Discharge: 03/12/18 Pt. admitted s/p fall for rhabdomyolysis and syncopal work up. Pt. had Head/ Facial/ C-Spinal CT all showing no acute pathology. Abdominal US showed no acute pathology. EKG showed NSR, 1st degree AV block, and RBBB. Echo showed normal LV and RV, mild MR and trace TR. Cardiology consult with Dr. Cuellar appreciated, recommends stress test as outpatient. Elevated CPK was treated with aggressive IVF resuscitation until below 1999. Nephrology consult appreciated. Pt.'s chronic comorbidities was treated with home doses except statin which was held until outpatient follow up with PCP. Hospital course discussed and agreed upon with Pt. Minutes to complete discharge: 34 Discharge Summary Reason For Visit: RHABDOMYOLYSIS,ELEVATED TROPONIN LEVEL Current Active Problems Fall (Acute) Condition: Improved - Instructions Diet, Activity, Other Instructions: You were admitted for dehydration and because you fell. Medications: We have resumed your home medications, Please continue to take them as prescribed. DO NOT take your cholesterol medication until you have your lab work done. We have started you on Aspirin 81mg Daily. Please take as prescribed. Follow-up: Please follow up with your [facility] within 1 week for Stress Test Please follow up with your Primary Care Physician (PCP) in 1 week. Please follow up with Dr. Herrera (Nephrology) to have your CPK level measured in 1 week. Drink plenty of water. Drink at least 2L of water daily until you see your doctor. Please return to the ER if your are experiencing leg weakness, leg pain, chest pain, unsteady balance, or headache that does not go away. Referrals: Wilder Cuellar MD [Staff Physician] - 1 Week Deepthi Coats MD [Primary Care Provider] - 1 Week Sonny Herrera MD [Staff Physician] - Disposition: HOME - Home Medications Comprehensive Discharge Medication List: Ambulatory Orders Dorzolamide/Timolol/Pf [Timolol 0.5%-Dorzolamide 2%] 10 ml OP DAILY 03/06/18 Lisinopril [Prinivil -] 40 mg PO DAILY 03/06/18 Metformin HCl [Metformin HCl ER] 500 mg PO DAILY 03/06/18 Pravastatin Sodium 10 mg PO DAILY 03/06/18 Aspirin [ASA -] 81 mg PO DAILY #30 tab.chew 03/07/18 Metoprolol Succinate [Toprol Xl] 200 mg PO DAILY 03/07/18 Nitroglycerin 0.4 mg SL PRN 03/07/18 This patient is new to me today: No Emergency Visit: No Critical Care patient: Yes Total Critical Care Time (in minutes): 45 Critical Care Statement: The care of this patient involved high complexity decision making to prevent further life threatening deterioration of the patient 's condition and/or to evaluate & treat vital organ system(s) failure or risk of failure. - Discharge Referral Referred to [facility] Med P.C.: No
--- NOTE | 2018-03-12 14:31 | PN ---
Teaching Attending Note Name of Resident: Sedrick Naidu ATTENDING PHYSICIAN STATEMENT I saw and evaluated the patient. I reviewed the resident's note and discussed the case with the resident. I agree with the resident's findings and plan as documented. SUBJECTIVE: Patient is better today , no focal deficit. OBJECTIVE: Vital Signs Temperature 97.8 F 03/12/18 08:56 Pulse Rate 82 03/12/18 08:56 Respiratory Rate 20 03/12/18 08:56 Blood Pressure 130/55 L 03/12/18 08:56 O2 Sat by Pulse Oximetry (%) 100 03/12/18 09:00 GENERAL: Awake, alert, oriented to person, place, time in no acute distress. HEAD: Normocephalic. Bruising noted over left cheek. EYES: Pupils equal, round and reactive to light, extraocular movements intact b/ l. sclera anicteric, EARS, NOSE, THROAT: Dry mucous membranes. Thrush noted on tongue. NECK: Supple without lymphadenopathy, JVD. LUNGS: Breath sounds equal, clear to auscultation bilaterally. No wheezes, and no crackles. HEART: Regular rate and rhythm, normal S1 and S2 without murmur, rub or gallop. ABDOMEN: Soft, nontender, not distended, normoactive bowel sounds, no rebound, no masses. EXTREMITIES: 2+ radial pulses b/l. NEUROLOGICAL: Cranial nerves II-XII intact. Normal speech. PSYCHIATRIC: Cooperative. Good eye contact. Appropriate mood and affect. SKIN: Bruising and scratches along b/l medial knees. CBCD WBC 6.4 K/mm3 (4.0-10.0) 03/10/18 06:00 RBC 4.73 M/mm3 (4.00-5.60) 03/10/18 06:00 Hgb 15.1 GM/dL (11.7-16.9) 03/10/18 06:00 Hct 44.2 % (35.4-49) 03/10/18 06:00 MCV 93.5 fl (80-96) 03/10/18 06:00 MCHC 34.2 g/dl (32.0-35.9) 03/10/18 06:00 RDW 14.7 % (11.9-15.9) 03/10/18 06:00 Plt Count 140 K/MM3 (134-434) D 10/27/18 06:00 MPV 9.2 fl (7.5-11.1) 03/10/18 06:00 CMP Sodium 139 mmol/L (136-145) 03/10/18 06:00 Potassium 3.9 mmol/L (3.5-5.1) 03/10/18 06:00 Chloride 100 mmol/L (98-107) 03/10/18 06:00 Carbon Dioxide 31 mmol/L (21-32) 03/10/18 06:00 Anion Gap 9 MMOL/L (8-16) 03/10/18 06:00 BUN 21 mg/dL (7-18) H 03/10/18 06:00 Creatinine 0.6 mg/dL (0.55-1.3) 03/10/18 06:00 Creat Clearance w eGFR > 60 (>60) 03/10/18 06:00 Random Glucose 96 mg/dL (74-106) 03/10/18 06:00 Calcium 8.3 mg/dL (8.5-10.1) L 03/10/18 06:00 Total Bilirubin 1.9 mg/dL (0.2-1) H 03/07/18 05:30 AST 332 U/L (15-37) H 03/07/18 05:30 ALT 72 U/L (13-61) H 03/07/18 05:30 Alkaline Phosphatase 58 U/L (45-117) 03/07/18 05:30 Total Protein 5.3 g/dl (6.4-8.2) L 03/07/18 05:30 Albumin 2.9 g/dl (3.4-5.0) L 03/07/18 05:30 CARDIAC ENZYMES Creatine Kinase 1724 IU/L (26-308) H 03/12/18 05:30 Troponin I 0.51 ng/ml (0.00-0.05) H 03/06/18 12:50 Current Medications Generic Name Dose Route Start Last Admin Trade Name Freq PRN Reason Stop Dose Admin Aspirin 81 mg 03/11/18 10:00 03/12/18 09:30 Asa - PO 81 mg DAILY [facility] Administration Bacitracin 1 applic 03/11/18 10:00 03/12/18 09:37 Bacitracin - TP 1 applic DAILY [facility] Administration Docusate Sodium 100 mg 03/11/18 10:00 03/12/18 09:30 Colace - PO 100 mg DAILY [facility] Administration Dorzolamide HCl 1 drop 03/11/18 10:00 03/12/18 09:35 Trusopt 2% OU 1 drop DAILY [facility] Administration Heparin Sodium (Porcine) 5,000 unit 03/10/18 14:00 03/12/18 06:00 Heparin - SQ 5,000 unit TID [facility] Administration Sodium Chloride 1,000 mls @ 100 mls/hr 03/12/18 04:45 03/12/18 12:31 Normal Saline - IV 03/13/18 14:44 100 mls/hr ASDIR [facility] Administration Insulin Aspart 1 vial 03/10/18 16:30 03/12/18 11:25 Novolog Vial Sliding Scale - SQ Not Given ACHS [facility] Protocol Lisinopril 40 mg 03/11/18 10:00 03/12/18 09:30 Prinivil PO 40 mg DAILY [facility] Administration Metoprolol Succinate 25 mg 03/11/18 10:00 03/12/18 09:30 Toprol Xl - PO 25 mg DAILY [facility] Administration Polyethylene Glycol 17 gm 03/11/18 10:00 03/12/18 09:32 Miralax (For Daily Use) - PO 17 grams DAILY [facility] Administration Senna 1 tab 03/10/18 22:00 03/11/18 21:11 Senna - PO 1 tab HS [facility] Administration Timolol Maleate 1 drop 03/11/18 10:00 03/12/18 09:34 Timoptic 0.5% OU 1 drop DAILY [facility] Administration Home Medications Medication Instructions Recorded Dorzolamide/Timolol/Pf [Timolol 10 ml OP DAILY 03/06/18 0.5%-Dorzolamide 2%] Lisinopril [Prinivil -] 40 mg PO DAILY 03/06/18 Metformin HCl [Metformin HCl ER] 500 mg PO DAILY 03/06/18 Pravastatin Sodium 10 mg PO DAILY 03/06/18 Aspirin [ASA -] 81 mg PO DAILY #30 tab.chew 03/07/18 Metoprolol Succinate [Toprol Xl] 200 mg PO DAILY 03/07/18 Nitroglycerin 0.4 mg SL PRN 03/07/18 ASSESSMENT AND PLAN: Patient is 77 yo male with PMHx of CAD s/p CABG 1989, HTN, HLD, NIDDM, brought in ED after mechanical fall, being on the floor for 2 days. #Acute Rhabdomyolysis improving, trending down. today is 2431-->1724 will continue to trend , continue to hold Pravastatin, patient was suggested to drink 2-3 liter of water per day. Follow with nephrology and repeat CPK level in a week. #Mechanical fall with elevated CPK trending now. Walker was prescribed to the patient. #Multiple abrasions chin/knees/extremities due to fall #Elevated troponin due to demand ischemia from rhabdomyolysis #HTN continue Toprol XL/Lisinopril #CAD s/p CABG 1989 continue Toprol #HLD will hold Pravastatin due Rhabdomyolysis discharge the patient home.
== END 2018-03-12 16:55 | disposition home or self-care (01) | DRG 565 ==
LOC: JER 21:27 → JERBED 03-06 02:17 → J4W 03-06 18:09 → J6S 03-10 10:19
PROVIDERS: ADMIT Internal Medicine; ATTEND Internal Medicine
DX: T79.6XXA Traumatic ischemia of muscle, initial encounter (principal); E87.1 Hypo-osmolality and hyponatremia; I24.8 Other forms of acute ischemic heart disease; R55 Syncope and collapse; R07.9 Chest pain, unspecified; R74.0 Nonspecific elevation of levels of transaminase and lactic acid dehydrogenase [LDH]; I25.10 Atherosclerotic heart disease of native coronary artery without angina pectoris; E11.9 Type 2 diabetes mellitus without complications; E78.5 Hyperlipidemia, unspecified; Z95.1 Presence of aortocoronary bypass graft; K59.00 Constipation, unspecified; E83.41 Hypermagnesemia; R53.1 Weakness; D75.1 Secondary polycythemia; M48.02 Spinal stenosis, cervical region; I10 Essential (primary) hypertension; E86.0 Dehydration
CPT/HCPCS: 36415; 70450-TC; 70486-TC; 71045-TC-FY; 72125-TC; 73502-TC-LT-FY; 73502-TC-RT; 73562-TC-LT-FY; 73562-TC-RT-FY; 76705-TC; 80048; 80053; 81003; 81015; 82248; 82550; 82553; 82962; 83036; 83690; 83735; 83874; 84100; 84484; 85025; 85027; 85610; 87086; 93005; 93010; 93306-TC; 97116-GP; 97161-GP; 99285-25; J0131; J1644; J7030

== ENCOUNTER 2018-05-28 02:14 | Observation (INO) | payer OTHER ==
--- NOTE | 2018-05-28 03:12 | PDOC ---
History of Present Illness - General Chief Complaint: Injury Stated Complaint: FALL Time Seen by Provider: 05/28/18 02:40 History Source: Patient - History of Present Illness Severity: mild Past History - Past Medical History Allergies/Adverse Reactions: Allergies Allergy/AdvReac Type Severity Reaction Status Date / Time No Known Allergies Allergy Verified 03/05/18 22:47 Home Medications: Ambulatory Orders Dorzolamide/Timolol/Pf [Timolol 0.5%-Dorzolamide 2%] 10 ml OP DAILY 03/06/18 Lisinopril [Prinivil -] 40 mg PO DAILY 03/06/18 Pravastatin Sodium 10 mg PO DAILY 03/06/18 metFORMIN HCL [Metformin ER Osmotic] 500 mg PO DAILY 03/06/18 Aspirin [ASA -] 81 mg PO DAILY #30 tab.chew 03/07/18 Metoprolol Succinate [Toprol Xl] 200 mg PO DAILY 03/07/18 Nitroglycerin 0.4 mg SL PRN 03/07/18 Shower Chair 1 unit AD DAILY #1 unit 03/12/18 Walker [Ultra-Light Rollator] 1 each MC DAILY #1 each 03/12/18 Cardiac Disorders: (cad) COPD: No HTN: Yes - Surgical History Cardiac Surgery: Yes (TRIPLE BYPASS 1989) - Immunization History Immunization Up to Date: Yes - Suicide/Smoking/Psychosocial Hx Smoking History: Never smoked Have you smoked in the past 12 months: No Information on smoking cessation initiated: No Hx Alcohol Use: No Drug/Substance Use Hx: No *Physical Exam - Vital Signs Last Vital Signs Temp Pulse Resp BP Pulse Ox 98.0 F 88 18 112/71 97 05/28/18 02:14 05/28/18 02:14 05/28/18 02:14 05/28/18 02:14 05/28/18 02:14 Moderate Sedation - Procedure Monitoring Vital Signs: Procedure Monitoring Vital Signs Temperature 98.0 F 05/28/18 02:14 Pulse Rate 88 05/28/18 02:14 Respiratory Rate 18 05/28/18 02:14 Blood Pressure 112/71 05/28/18 02:14 O2 Sat by Pulse Oximetry (%) 97 05/28/18 02:14 Heart Score/ECG Review - ECG Intrepretation Rhythm: Regular Rhythm - P and AL Prominent R with upright T in V1 (true posterior CA): No Delta Wave(s) Present: No - QRS Widened: RBBB (also LAFB) - ST and T Early Repolarization: No Non Specific ST-T Wave changes: No Flattened T Waves: No Prolonged Q-T Interval: No - ECG Impressions Normal ECG: No Non-specific ST Elevation: No Ischemic Changes: No Bradycardia: No Torsades woo Pointes: No WPW: No ED Treatment Course - LABORATORY CBC & Chemistry Diagram: 05/28/18 03:40 05/28/18 03:40 Medical Decision Making - Medical Decision Making 05/28/18 05:10 Patient Name: JUDITH PATEL THIS IS A PRELIMINARY REPORT FROM [facility] DATE OF SERVICE: 2018-05-28 04:13:33 IMAGES: 62 EXAM: CERVICAL SPINE CT W/O CONTR HISTORY: Bleed COMPARISON: None. FINDINGS: There is no fracture or prevertebral soft tissue swelling. There are mild to moderate degenerative changes with a mild degenerative retrolisthesis of C4 on C5. The lung apices are clear. IMPRESSION: No fracture. 05/28/18 05:11 Patient Name: JUDITH PATEL THIS IS A PRELIMINARY REPORT FROM [facility] DATE OF SERVICE: 2018-05-28 04:13:33 IMAGES: 164 EXAM: HEAD CT WITHOUT CONTRAST HISTORY: Intracranial bleed COMPARISON: None. FINDINGS: The ventricular system is midline and nondilated. The sulcal pattern is normal for the patient's age. Mild small vessel ischemic changes are noted. There is no bleed, mass, extra-axial fluid collection or mass effect. No skull fracture or skull lesion is identified. The visualized paranasal sinuses and mastoid air cells are clear. IMPRESSION: No acute pathology 05/28/18 05:20 CXR appears normal *DC/Admit/Observation/Transfer Diagnosis at time of Disposition: Near syncope, Movement disorder, Recurrent falls - Discharge Dispostion Condition at time of disposition: Guarded Decision to Admit order: Yes - Referrals - Patient Instructions - Post Discharge Activity
[2018-05-28] MEDS ORDERED: SODIUM CHLORIDE 1,000 ML IV SCH (03:15)
[2018-05-28 03:55] LABS: HEMATOCRIT 43.5 % (35.4-49); HEMOGLOBIN 15.1 GM/dL (11.7-16.9); MCH 32.3 pg (25.7-33.7); MCHC 34.8 g/dl (32.0-35.9); MEAN CELL VOLUME 92.9 fl (80-96); MEAN PLT VOLUME 8.4 fl (7.5-11.1); PLATELET COUNT 174 K/MM3 (134-434); RBC 4.68 M/mm3 (4.00-5.60); RDW 13.9 % (11.9-15.9); WHITE BLOOD COUNT 6.6 K/mm3 (4.0-10.0)
[2018-05-28 04:10] LABS: URINE APPEARANCE CLEAR; URINE BILIRUBIN NEGATIVE (<2.0 mg/dL); URINE COLOR LTYELLOW; URINE GLUCOSE (UA) NEGATIVE (NEGATIVE); URINE KETONE TRACE (NEGATIVE); URINE LEUK ESTERASE NEGATIVE (NEGATIVE); URINE NITRITE NEGATIVE (NEGATIVE); URINE PROTEIN 3+ (NEGATIVE); URINE UROBILINOGEN NEGATIVE mg/dL (0.2-1.0)
[2018-05-28 04:18] LABS: ALBUMIN 3.6 g/dl (3.4-5.0); ALK PHOS 82 U/L (45-117); ANION GAP 9 MMOL/L (8-16); BLOOD UREA NITROGEN 16 mg/dL (7-18); CALCIUM 8.9 mg/dL (8.5-10.1); CHLORIDE 93 mmol/L (98-107); CO2 28 mmol/L (21-32); CREATININE 0.7 mg/dL (0.55-1.3); GLUCOSE,RANDOM 152 mg/dL (74-106); POTASSIUM 3.4 mmol/L (3.5-5.1); SGOT/AST 24 U/L (15-37); SGPT/ALT 19 U/L (13-61); SODIUM 131 mmol/L (136-145); TOT PROT 6.5 g/dl (6.4-8.2)
[2018-05-28] MEDS ORDERED: FOLIC ACID INJECTION - 1 MG, THIAMINE HCL 100 MG, MULTIVIT INJECTION ADULT 10 ML in SOD... IVPB ONE (04:22)
[2018-05-28 04:26] LABS: URINE HYALINE CAST 1 /lpf
--- NOTE | 2018-05-28 06:10 | PN ---
Teaching Attending Note Name of Resident: Sunshine Norris ATTENDING PHYSICIAN STATEMENT I saw and evaluated the patient. Chart, data, imaging reviewed. I reviewed the resident's note and discussed the case with the resident. I agree with the resident's findings and plan as documented. SUBJECTIVE: 77 year old male with history of hypertension, coronary artery disease s/p CABG in 1989, hyperlipidemia, diabetes mellitus, recurrent falls, recent admission this past february for mechanical fall with rhabo, returns s/p fall at home, brought in by family member. Pt reports feeling weak and falling in shower evening of 05/27 and, landing on buttocks and recalls contact with neck and back of head. He did not lose consciousness. Denied any chest pain, palpitations or shortness of breath. OBJECTIVE: Last Vital Signs Temp Pulse Resp BP Pulse Ox 98.0 F 88 18 112/71 97 05/28/18 02:36 05/28/18 02:36 05/28/18 02:36 05/28/18 02:36 05/28/18 02:36 General- nad, aaox3 heent- atraumatic, no tenderness on head or posterior neck chest- anterior chest vertical scar, cta b/l cv-s1+s2+rrr abdomen- soft, bs+ ext -nontender Abnormal Lab Results 05/28/18 05/28/18 05/28/18 03:40 03:40 03:57 Sodium 131 L Potassium 3.4 L Chloride 93 L Random Glucose 152 H CK-MB (CK-2) 5.1 H Troponin I 0.06 H 0.06 H Urine Protein 3+ H Urine Ketones Trace H head ct, c -spine- no fractures ASSESSMENT AND PLAN: #77yo man s/p mechanical fall with electrolyte disturbances- hyponatremia, hypokalemia, hypochloremia. Derranged electrolytes may have contributed to fall. Recent admission for fall, walker prescribed , but patient uses only intermittently. -observation -social research assistant intervention for home health aid and assist chair for shower -fall precautions -bed rest -PT eval -ekg #electrolyte derrangement -urine osm -serum osm -tsh -check orthostatics -NS gentle hydration -replace K -check mg, phos -repeat bmp -c/w meds for chronic med problems -avoid diuretics -heparin sc for dvt ppx
[2018-05-28] MEDS ORDERED: POTASSIUM CHLORIDE TABS 20 MEQ TABLET.ER (FP) PO ONE ×2 (06:26→08:44)
--- NOTE | 2018-05-28 06:35 | HP ---
CHIEF COMPLAINT: Mechanical fall PCP: Dr. Coats HISTORY OF PRESENT ILLNESS: 77 y/o M with PMHx of HTN, CAD s/p CABG in 1989, HLD, DM was BIBEMS after mechanical fall. Patient was recently discharged in February 2018 after experiencing a syncopal episode. Today around 23:30 while exiting the shower, patient fell to the ground after experiencing some "Shakes." Patient says he experiences these shakes in his upper spine and neck daily however this is the first time he has falling in 3 months. He denies slipping or tripping over anything. Patient recalls the even and hit his neck however denies hitting his head or LOC. Once on the ground, patient crawled to the telephone and called EMS. At this time he was unable to lift himself off the ground. Denies any associated numbness, tingling, weakness, fevers, chills, chest pain, SOB, nausea , vomiting, diarrhea, palpitation, lightheadedness, dizziness, blurry vision. Patient only uses his glasses for reading and denies any recent script change. Patient last saw his PCP about 3 months ago and denies any recent medication changes. Patient daughters regularly visit him. Denies any decreased PO Intake. ER course was notable for: (1) (2) (3) Recent Travel: Denies PAST MEDICAL HISTORY: HTN, CAD s/p CABG in 1989, HLD, DM PAST SURGICAL HISTORY: CABG in 1989 Social History: Smoking: Former Alcohol: Denies Drugs: Denies Ambulation: Walker/Cane Residence: At home alone Family History: Allergies No Known Allergies Allergy (Verified 03/05/18 22:47) HOME MEDICATIONS: Home Medications Medication Instructions Recorded Dorzolamide/Timolol/Pf [Timolol 10 ml OP DAILY 03/06/18 0.5%-Dorzolamide 2%] Lisinopril [Prinivil -] 40 mg PO DAILY 03/06/18 Pravastatin Sodium 10 mg PO DAILY 03/06/18 metFORMIN HCL [Metformin ER 500 mg PO DAILY 03/06/18 Osmotic] Aspirin [ASA -] 81 mg PO DAILY #30 tab.chew 03/07/18 Metoprolol Succinate [Toprol Xl] 200 mg PO DAILY 03/07/18 Nitroglycerin 0.4 mg SL PRN 03/07/18 Shower Chair 1 unit AD DAILY #1 unit 03/12/18 Walker [Ultra-Light Rollator] 1 each DAILY #1 each 03/12/18 REVIEW OF SYSTEMS As per HPI PHYSICAL EXAMINATION Vital Signs - 24 hr 05/28/18 05/28/18 02:14 02:36 Temperature 98.0 F 98.0 F Pulse Rate 88 Pulse Rate [ 88 Left Radial] Respiratory 18 18 Rate Blood Pressure 112/71 Blood Pressure 112/71 [Left Arm] O2 Sat by Pulse 97 97 Oximetry (%) GENERAL: A&Ox3, NAD HEAD: NCAT EYES: PERRL, EOMI EARS, NOSE, THROAT: Oropharynx clear without exudates. Moist mucous membranes. NECK: No midline tenderness to palpation LUNGS: CTA b/l, No wheezes, no crackles. HEART: Regular rate and rhythm, normal S1 and S2 without murmur ABDOMEN: Soft, nontender, not distended, + bowel sounds, no guarding MUSCULOSKELETAL: Normal range of motion at all joints. No bony deformities or tenderness. EXTREMITIES: 2+ pulses, No peripheral edema. NEUROLOGICAL: Cranial nerves II-XII intact. Normal speech. Gross sensation intact throughout. 5/5 muscle strength throughout SKIN: Warm, dry Laboratory Results - last 24 hr 05/28/18 05/28/18 05/28/18 03:40 03:40 03:40 WBC 6.6 RBC 4.68 Hgb 15.1 Hct 43.5 MCV 92.9 MCH 32.3 MCHC 34.8 RDW 13.9 Plt Count 174 D MPV 8.4 Sodium 131 L Potassium 3.4 L Chloride 93 L Carbon Dioxide 28 Anion Gap 9 BUN 16 Creatinine 0.7 Creat Clearance w eGFR > 60 Random Glucose 152 H Calcium 8.9 Total Bilirubin 1.0 AST 24 ALT 19 Alkaline Phosphatase 82 Creatine Kinase 250 Creatine Kinase Index 2.0 CK-MB (CK-2) 5.1 H Troponin I 0.06 H 0.06 H Total Protein 6.5 Albumin 3.6 Urine Color Urine Appearance Urine pH Ur Specific [place] Urine Protein Urine Glucose (UA) Urine Ketones Urine Blood Urine Nitrite Urine Bilirubin Urine Urobilinogen Ur Leukocyte Esterase Urine WBC (Auto) Urine RBC (Auto) Hyaline Casts 05/28/18 03:57 WBC RBC Hgb Hct MCV MCH MCHC RDW Plt Count MPV Sodium Potassium Chloride Carbon Dioxide Anion Gap BUN Creatinine Creat Clearance w eGFR Random Glucose Calcium Total Bilirubin AST ALT Alkaline Phosphatase Creatine Kinase Creatine Kinase Index CK-MB (CK-2) Troponin I Total Protein Albumin Urine Color Ltyellow Urine Appearance Clear Urine pH 7.0 D Ur Specific [place] 1.010 Urine Protein 3+ H Urine Glucose (UA) Negative Urine Ketones Trace H Urine Blood Negative Urine Nitrite Negative Urine Bilirubin Negative Urine Urobilinogen Negative Ur Leukocyte Esterase Negative Urine WBC (Auto) 1 Urine RBC (Auto) <1 Hyaline Casts 1 ASSESSMENT/PLAN: 77 y/o M with PMHx of HTN, CAD s/p CABG in 1989, HLD, DM was BIBEMS after mechanical fall #Mechanical Fall -Patient mentions he does not use his walker routinely -Head CT and CT C-spine negative -Check Orthostatics -Fall precautions, Bed rest -PT Evaluation -Social Work Consult for possible home health aide #Troponinemia -Likely demand ischemia; Less likely ACS -EKG revealed sinus bradycardia, bifasicular block -Troponin 0.06 CK-MB 5.1 -Trend Trops, Check TSH -ECHO done last visit, LV Systolic function normal -Tele monitoring #Hypokalemia -KDur 40 mEq give -Recheck #HypoNatremia -Started on NS @ 75 mls/hr -Check Urine Osms, Serum [place] #DM -ISS BGMs ACHS #FEN -IV NS @ 75mls/hr -Replete K+, Na+ -Sodium controlled diet #PPx -DVT: Heparin TID Dispo: Tele-Obs, will need med-rec Visit type - Emergency Visit Emergency Visit: Yes ED Registration Date: 05/28/18 Care time: The patient presented to the Emergency Department on the above date and was hospitalized for further evaluation of their emergent condition. - New Patient This patient is new to me today: Yes Date on this admission: 05/28/18 - Critical Care Critical Care patient: No
[2018-05-28] MEDS ORDERED: NITROGLYCERIN SUBLINGUAL 1/150 0.4 MG TAB SL SCH (06:45)
[2018-05-28] MEDS: INSULIN SLIDING SCALE (NOVOLOG) 1 VIAL SQ SCH ×3 (08:03→18:28)
[2018-05-28] MEDS: SODIUM CHLORIDE 1,000 ML IV SCH (08:41)
[2018-05-28] MEDS ORDERED: ASPIRIN 81 MG CHEWABLE TABLETS ONE (08:43)
[2018-05-28] MEDS ORDERED: LISINOPRIL 20 MG TABLET (FP) ONE (08:44)
[2018-05-28] MEDS ORDERED: HEMOQUE TEST 1 EACH EACH ONE (09:00)
[2018-05-28] MEDS: ASPIRIN 81 MG CHEWABLE TABLETS PO SCH (09:03)
[2018-05-28] MEDS: LISINOPRIL 20 MG TABLET (FP) PO SCH (09:04)
--- NOTE | 2018-05-28 09:31 | CONSULT ---
Consult - text type - Consultation Consultation Note: Neurology CHIEF COMPLAINT: Mechanical fall HISTORY OF PRESENT ILLNESS: 77 y/o M with PMHx of HTN, CAD s/p CABG in 1989, HLD, DM was BIBEMS after mechanical fall. Patient was recently discharged in February 2018 after experiencing a syncopal episode. Repoertedly while exiting the shower, patient fell to the ground after experiencing some "Shakes." Patient said he experiences these shakes in his upper spine and neck daily however this is the first time he has falling in 3 months. He denies slipping or tripping over anything. Patient recalled the event and hit his neck however denies hitting his head or LOC. Once on the ground, patient crawled to the telephone and called EMS. At this time he was unable to lift himself off the ground. Denied any associated numbness, tingling, weakness, fevers, chills, chest pain, SOB, nausea, vomiting, diarrhea, palpitation, lightheadedness, dizziness, blurry vision. Patient only uses his glasses for reading and denies any recent script change. Patient last saw his PCP about 3 months ago and denies any recent medication changes. Patient daughters regularly visit him. Denied any decreased PO Intake. CT head completed and reviewed, no acute changes noted. CT C spine reviewed and without fracture or dislocation, DDD noted, disc protrusion noted. Recent Travel: Denies PAST MEDICAL HISTORY: HTN, CAD s/p CABG in 1989, HLD, DM PAST SURGICAL HISTORY: CABG in 1989 Social History: Smoking: Former Alcohol: Denies Drugs: Denies Ambulation: Walker/Cane Residence: At home alone Family History: Allergies No Known Allergies Allergy (Verified 03/05/18 22:47) HOME MEDICATIONS: Home Medications Medication Instructions Recorded Dorzolamide/Timolol/Pf [Timolol 10 ml OP DAILY 03/06/18 0.5%-Dorzolamide 2%] Lisinopril [Prinivil -] 40 mg PO DAILY 03/06/18 Pravastatin Sodium 10 mg PO DAILY 03/06/18 metFORMIN HCL [Metformin ER 500 mg PO DAILY 03/06/18 Osmotic] Aspirin [ASA -] 81 mg PO DAILY #30 tab.chew 03/07/18 Metoprolol Succinate [Toprol Xl] 200 mg PO DAILY 03/07/18 Nitroglycerin 0.4 mg SL PRN 03/07/18 Shower Chair 1 unit AD DAILY #1 unit 03/12/18 Walker [Ultra-Light Rollator] 1 each MC DAILY #1 each 03/12/18 REVIEW OF SYSTEMS As per HPI PHYSICAL EXAMINATION Vital Signs Period Temp Pulse Resp BP Sys/Becerril Pulse Ox Last 24 Hr 97.8 F-98.4 F 57-88 16-18 112-134/63-71 97-100 GENERAL: A&Ox3, NAD HEAD: NCAT EYES: PERRL, EOMI EARS, NOSE, THROAT: Oropharynx clear without exudates. Moist mucous membranes. NECK: No midline tenderness to palpation LUNGS: CTA b/l, No wheezes, no crackles. HEART: Regular rate and rhythm, normal S1 and S2 without murmur ABDOMEN: Soft, nontender, not distended, + bowel sounds, no guarding MUSCULOSKELETAL: Normal range of motion at all joints. No bony deformities or tenderness. EXTREMITIES: 2+ pulses, No peripheral edema. NEUROLOGICAL: Cranial nerves II-XII intact. Normal speech. Gross sensation intact throughout. 5/5 muscle strength throughout, finger to nose normal, gait deferred SKIN: Warm, dry Laboratory Results - last 24 hr 05/28/18 05/28/18 05/28/18 03:40 03:40 03:40 WBC 6.6 RBC 4.68 Hgb 15.1 Hct 43.5 MCV 92.9 MCH 32.3 MCHC 34.8 RDW 13.9 Plt Count 174 D MPV 8.4 Sodium 131 L Potassium 3.4 L Chloride 93 L Carbon Dioxide 28 Anion Gap 9 BUN 16 Creatinine 0.7 Creat Clearance w eGFR > 60 Random Glucose 152 H Calcium 8.9 Total Bilirubin 1.0 AST 24 ALT 19 Alkaline Phosphatase 82 Creatine Kinase 250 Creatine Kinase Index 2.0 CK-MB (CK-2) 5.1 H Troponin I 0.06 H 0.06 H Total Protein 6.5 Albumin 3.6 Urine Color Urine Appearance Urine pH Ur Specific [place] Urine Protein Urine Glucose (UA) Urine Ketones Urine Blood Urine Nitrite Urine Bilirubin Urine Urobilinogen Ur Leukocyte Esterase Urine WBC (Auto) Urine RBC (Auto) Hyaline Casts 05/28/18 03:57 WBC RBC Hgb Hct MCV MCH MCHC RDW Plt Count MPV Sodium Potassium Chloride Carbon Dioxide Anion Gap BUN Creatinine Creat Clearance w eGFR Random Glucose Calcium Total Bilirubin AST ALT Alkaline Phosphatase Creatine Kinase Creatine Kinase Index CK-MB (CK-2) Troponin I Total Protein Albumin Urine Color Ltyellow Urine Appearance Clear Urine pH 7.0 D Ur Specific [place] 1.010 Urine Protein 3+ H Urine Glucose (UA) Negative Urine Ketones Trace H Urine Blood Negative Urine Nitrite Negative Urine Bilirubin Negative Urine Urobilinogen Negative Ur Leukocyte Esterase Negative Urine WBC (Auto) 1 Urine RBC (Auto) <1 Hyaline Casts 1 ASSESSMENT/PLAN: 77 y/o M with PMHx of HTN, CAD s/p CABG in 1989, HLD, DM was BIBEMS after mechanical fall. Patient was recently discharged in February 2018 after experiencing a syncopal episode. Repoertedly while exiting the shower, patient fell to the ground after experiencing some "Shakes." Patient said he experiences these shakes in his upper spine and neck daily however this is the first time he has falling in 3 months. He denies slipping or tripping over anything. Patient recalled the event and hit his neck however denies hitting his head or LOC. Once on the ground, patient crawled to the telephone and called EMS. At this time he was unable to lift himself off the ground. Denied any associated numbness, tingling, weakness, fevers, chills, chest pain, SOB, nausea, vomiting, diarrhea, palpitation, lightheadedness, dizziness, blurry vision. Patient only uses his glasses for reading and denies any recent script change. Patient last saw his PCP about 3 months ago and denies any recent medication changes. Patient daughters regularly visit him. Denied any decreased PO Intake. CT head completed and reviewed, no acute changes noted. CT C spine reviewed and without fracture or dislocation, DDD noted, disc protrusion noted. Check orthostatics. Hydration as tolerated. Monitor K, patient with hypoK on labs, optimize as able. Also with hypoNa, optimize as able. Monitor glucose, maintain euglycemic range.
--- NOTE | 2018-05-28 09:49 | EKG ---
Test Reason : Blood Pressure : / mmHG Vent. Rate : 053 BPM Atrial Rate : 053 BPM P-R Int : 394 ms QRS Dur : 142 ms QT Int : 518 ms P-R-T Axes : 071 -69 -79 degrees QTc Int : 486 ms SINUS BRADYCARDIA WITH SINUS ARRHYTHMIA WITH 1ST DEGREE A-V BLOCK RIGHT BUNDLE BRANCH BLOCK LEFT ANTERIOR FASCICULAR BLOCK BIFASCICULAR BLOCK LEFT VENTRICULAR HYPERTROPHY WITH REPOLARIZATION ABNORMALITY ABNORMAL ECG WHEN COMPARED WITH ECG OF 05-MAR-2018 22:40, VENT. RATE HAS DECREASED Confirmed by CAESAR RUBIO MD ([id number]) on 05/28/2018 9:48:29 AM Referred By: Confirmed By:CAESAR RUBIO MD
[2018-05-28 10:00] LABS: BASO % 0.5 % (0-2.0); EOS % 0.6 % (0-4.5); HEMATOCRIT 42.2 % (35.4-49); HEMOGLOBIN 13.5 GM/dL (11.7-16.9); LYMPH % 34.1 % (8-40); MCH 30.4 pg (25.7-33.7); MCHC 32.1 g/dl (32.0-35.9); MEAN CELL VOLUME 94.9 fl (80-96); MEAN PLT VOLUME 8.2 fl (7.5-11.1); MONO % 12.5 % (3.8-10.2); NEUT % 52.3 % (42.8-82.8); PLATELET COUNT 146 K/MM3 (134-434); RBC 4.44 M/mm3 (4.00-5.60); RDW 13.6 % (11.9-15.9); WHITE BLOOD COUNT 4.9 K/mm3 (4.0-10.0)
[2018-05-28] MEDS ORDERED: ENOXAPARIN NA (PORCINE) 40 MG/0.4 ML DISP.SYRIN SQ SCH (10:00)
[2018-05-28 10:29] LABS: OSMOLALITY,SERUM 268 mosm/kg (278-305)
[2018-05-28 10:51] LABS: ALBUMIN 3.3 g/dl (3.4-5.0); ALK PHOS 77 U/L (45-117); ANION GAP 7 MMOL/L (8-16); BILIRUBIN,TOTAL 1.2 mg/dL (0.2-1); BLOOD UREA NITROGEN 14 mg/dL (7-18); CALCIUM 8.3 mg/dL (8.5-10.1); CHLORIDE 97 mmol/L (98-107); CO2 28 mmol/L (21-32); CREATININE 0.7 mg/dL (0.55-1.3); GLUCOSE,RANDOM 120 mg/dL (74-106); POTASSIUM 3.5 mmol/L (3.5-5.1); SGOT/AST 20 U/L (15-37); SGPT/ALT 15 U/L (13-61); SODIUM 132 mmol/L (136-145); TOT PROT 5.9 g/dl (6.4-8.2)
--- NOTE | 2018-05-28 14:08 | CON.CARD ---
Cardiology Consult (text) - Consultation Consultation Note: Consult Specialty:: cardio - History of Present Illness Chief Complaint: fall History of Present Illness: 77 M h/o CAD s/p CABG, HLD, HTN p/w mechanical fall. Last had fall in 02/2018 , this time had been taking a shower, felt weak and fell. No loss of consciousness. No chest pain, palps, dizziness, lightheadedness, dyspnea. Did feel a shaking feeling in his arms before falling. PMH: s/p CABG 1989, ? chronic anginal sx (equivocal sx's) HTN HPL - Smoking History Smoking history: Never smoked Home Medications - Allergies Allergies/Adverse Reactions: Allergies Allergy/AdvReac Type Severity Reaction Status Date / Time No Known Allergies Allergy Verified 03/05/18 22:47 - Home Medications Home Medications: Home Medications Medication Instructions Recorded Dorzolamide/Timolol/Pf [Timolol 10 ml OP DAILY 03/06/18 0.5%-Dorzolamide 2%] Lisinopril [Prinivil -] 40 mg PO DAILY 03/06/18 Pravastatin Sodium 10 mg PO DAILY 03/06/18 metFORMIN HCL [Metformin ER 500 mg PO DAILY 03/06/18 Osmotic] Aspirin [ASA -] 81 mg PO DAILY #30 tab.chew 03/07/18 Metoprolol Succinate [Toprol Xl] 200 mg PO DAILY 03/07/18 Nitroglycerin 0.4 mg SL PRN 03/07/18 Shower Chair 1 unit AD DAILY #1 unit 03/12/18 Walker [Ultra-Light Rollator] 1 each MC DAILY #1 each 03/12/18 Review of Systems - Review of Systems Constitutional: denies: Chills, Fever Eyes: denies: Eye Pain HENT: denies: Nasal Congestion Neck: denies: Stiffness Cardiovascular: denies: Palpitations Respiratory: denies: Orthopnea, PND Gastrointestinal: denies: Diarrhea, Rectal Bleeding Genitourinary: denies: Burning, Hematuria Musculoskeletal: denies: Muscle Pain Integumentary: denies: Rash Neurological: denies: Dizziness, Seizure, Syncope Endocrine: denies: Excessive Sweating Hematology/Lymphatic: denies: Excessive Bleeding Vital Signs: Vital Signs Period Temp Pulse Resp BP Sys/Becerril Pulse Ox Last 24 Hr 97.8 F-98.4 F 57-88 16-18 112-134/63-71 97-100 Constitutional: Yes: Well Nourished, No Distress Eyes: No: Sclera Icterus HENT: No: Nasal Congestion Neck: No: Decreased ROM Respiratory: Yes: CTA Bilaterally . No: Accessory Muscle Use, Rales, Wheezes Gastrointestinal: Yes: Normal Bowel Sounds. No: Distention, Hepatomegaly, Palpable Mass, Tenderness Cardiovascular: Yes: Regular Rate and Rhythm JVD: No Carotid Bruit: No PMI: Non-Displaced Heart Sounds: Yes: S1, S2. No: Gallop Murmur: No: Systolic Murmur, Diastolic Murmur Musculoskeletal: Yes: Other (No kyphosis) Extremities: No: Cool, Cyanosis Edema: No Peripheral Pulses: 2+ Left Carotid, 2+ Right Carotid, 2+ Left Doralis Pedis, 2+ Right Dorsalis Pedis Integumentary: No: Jaundice Neurological: Yes: Alert, Oriented (x3), Other (moves both legs and feet, gross touch sensation intact bilateral feet) Psychiatric: No: Agitated - Other Data Labs, Other Data: Laboratory Last Values WBC 4.9 K/mm3 (4.0-10.0) 05/28/18 09:43 RBC 4.44 M/mm3 (4.00-5.60) 05/28/18 09:43 Hgb 13.5 GM/dL (11.7-16.9) 05/28/18 09:43 Hct 42.2 % (35.4-49) 05/28/18 09:43 MCV 94.9 fl (80-96) 05/28/18 09:43 MCH 30.4 pg (25.7-33.7) 05/28/18 09:43 MCHC 32.1 g/dl (32.0-35.9) 05/28/18 09:43 RDW 13.6 % (11.9-15.9) 05/28/18 09:43 Plt Count 146 K/MM3 (134-434) 05/28/18 09:43 MPV 8.2 fl (7.5-11.1) 05/28/18 09:43 Absolute Neuts (auto) 2.6 K/mm3 (1.5-8.0) 05/28/18 09:43 Neutrophils % 52.3 % (42.8-82.8) D 05/28/18 09:43 Lymphocytes % 34.1 % (8-40) D 05/28/18 09:43 Monocytes % 12.5 % (3.8-10.2) H 05/28/18 09:43 Eosinophils % 0.6 % (0-4.5) D 05/28/18 09:43 Basophils % 0.5 % (0-2.0) 05/28/18 09:43 Nucleated RBC % 0 % (0-0) 05/28/18 09:43 Sodium 132 mmol/L (136-145) L 05/28/18 09:47 Potassium 3.5 mmol/L (3.5-5.1) 05/28/18 09:47 Chloride 97 mmol/L (98-107) L 05/28/18 09:47 Carbon Dioxide 28 mmol/L (21-32) 05/28/18 09:47 Anion Gap 7 MMOL/L (8-16) L 05/28/18 09:47 BUN 14 mg/dL (7-18) 05/28/18 09:47 Creatinine 0.7 mg/dL (0.55-1.3) 05/28/18 09:47 Creat Clearance w eGFR > 60 (>60) 05/28/18 09:47 POC Glucometer 127.43472 UNITS (80-120) 05/28/18 11:14 Random Glucose 120 mg/dL (74-106) H 05/28/18 09:47 Serum Osmolality 268 mosm/kg (278-305) L 05/28/18 09:47 Calcium 8.3 mg/dL (8.5-10.1) L 05/28/18 09:47 Phosphorus 3.0 mg/dL (2.5-4.9) 05/28/18 09:47 Magnesium 2.0 mg/dL (1.8-2.4) 05/28/18 09:47 Total Bilirubin 1.2 mg/dL (0.2-1) H 05/28/18 09:47 AST 20 U/L (15-37) 05/28/18 09:47 ALT 15 U/L (13-61) 05/28/18 09:47 Alkaline Phosphatase 77 U/L (45-117) 05/28/18 09:47 Creatine Kinase 250 IU/L (26-308) 05/28/18 03:40 Creatine Kinase Index 2.0 % (0.0-5.0) 05/28/18 03:40 CK-MB (CK-2) 5.1 ng/mL (0.5-3.6) H 05/28/18 03:40 Troponin I 0.09 ng/ml (0.00-0.05) H 05/28/18 09:47 Total Protein 5.9 g/dl (6.4-8.2) L 05/28/18 09:47 Albumin 3.3 g/dl (3.4-5.0) L 05/28/18 09:47 TSH 1.21 uIU/ml (0.358-3.74) 05/28/18 09:47 Urine Color Ltyellow 05/28/18 03:57 Urine Appearance Clear 05/28/18 03:57 Urine pH 7.0 (5.0-8.0) D 05/28/18 03:57 Ur Specific [place] 1.010 (1.010-1.035) 05/28/18 03:57 Urine Protein 3+ (NEGATIVE) H 05/28/18 03:57 Urine Glucose (UA) Negative (NEGATIVE) 05/28/18 03:57 Urine Ketones Trace (NEGATIVE) H 05/28/18 03:57 Urine Blood Negative (NEGATIVE) 05/28/18 03:57 Urine Nitrite Negative (NEGATIVE) 05/28/18 03:57 Urine Bilirubin Negative (<2.0 mg/dL) 05/28/18 03:57 Urine Urobilinogen Negative mg/dL (0.2-1.0) 05/28/18 03:57 Ur Leukocyte Esterase Negative (NEGATIVE) 05/28/18 03:57 Urine WBC (Auto) 1 /hpf (3-5) 05/28/18 03:57 Urine RBC (Auto) <1 /hpf (0-3) 05/28/18 03:57 Hyaline Casts 1 /lpf 05/28/18 03:57 Urine Osmolality 311 mosm/kg (300-900) 05/28/18 12:18 Assessment/Plan ECG sinus, first degree AV block, RBBB, LVH with strain CXR: no acute process Echo 02/2018 nl LV/EF. no RWMA described. nl RV. mild L/NASIMA. mild AI. MIBI 2015: 9:30min, no STs, no isch; nl EF, no LVE/TID tele: sinus s/p fall - no loss of consciousness, likely mechanical - neuro consulted elevated trop, chronic ischemic heart disease: -S/P CABG 1989 - denies chest pain -trop mildly elevated, flat trend, not consistent with ACS, EKG similar to prior - cont home aspirin, bb, statin Essential hypertension: - cont home meds lisinopril, metoprolol Pure hypercholesterolemia: - cont statin Impaired fasting glucose: - manage per primary
--- NOTE | 2018-05-28 15:30 | PN ---
Physical Exam: SUBJECTIVE: Patient seen and examined awaiting bed assignment in the ED. tells me that he feels weak and has fallen at least twice in the last month. the falls are due to his unsteady gait and sometimes feels shaky. he denies any etoh use or drug use. lives alone. Has an open abrasion on right knee. and healed abrasion on left knee. denies chest pain or shortness of breath. OBJECTIVE: thin weak appearing elderly male, he describes upper body tremors with ambulation. neuro consulted. Vital Signs Period Temp Pulse Resp BP Sys/Becerril Pulse Ox Last 24 Hr 97.8 F-98.4 F 57-88 16-18 112-134/63-71 97-100 GENERAL: The patient is awake, alert, and fully oriented, in no acute distress. HEAD: Normal with no signs of trauma. EYES: PERRL, extraocular movements intact, sclera anicteric, conjunctiva clear. No ptosis. ENT: Ears normal, nares patent, oropharynx clear without exudates, moist mucous membranes. NECK: Trachea midline, full range of motion, supple. LUNGS: diminished bilaterally, tolerating room air. HEART: Regular rate and rhythm. monitor on tele. ABDOMEN: Soft, nontender, nondistended, normoactive bowel sounds, no guarding, no rebound, no hepatosplenomegaly, no masses. EXTREMITIES: no edema. NEUROLOGICAL: Normal speech, gait not observed. physical therapy. fall risk. PSYCH: Normal mood, normal affect Laboratory Results - last 24 hr 05/28/18 05/28/18 05/28/18 03:40 03:40 03:40 WBC 6.6 RBC 4.68 Hgb 15.1 Hct 43.5 MCV 92.9 MCH 32.3 MCHC 34.8 RDW 13.9 Plt Count 174 D MPV 8.4 Absolute Neuts (auto) Neutrophils % Lymphocytes % Monocytes % Eosinophils % Basophils % Nucleated RBC % Sodium 131 L Potassium 3.4 L Chloride 93 L Carbon Dioxide 28 Anion Gap 9 BUN 16 Creatinine 0.7 Creat Clearance w eGFR > 60 POC Glucometer Random Glucose 152 H Serum Osmolality Calcium 8.9 Phosphorus Magnesium Total Bilirubin 1.0 AST 24 ALT 19 Alkaline Phosphatase 82 Creatine Kinase 250 Creatine Kinase Index 2.0 CK-MB (CK-2) 5.1 H Troponin I 0.06 H 0.06 H Total Protein 6.5 Albumin 3.6 TSH Urine Color Urine Appearance Urine pH Ur Specific [place] Urine Protein Urine Glucose (UA) Urine Ketones Urine Blood Urine Nitrite Urine Bilirubin Urine Urobilinogen Ur Leukocyte Esterase Urine WBC (Auto) Urine RBC (Auto) Hyaline Casts Urine Osmolality 05/28/18 05/28/18 05/28/18 03:57 09:02 09:43 WBC 4.9 RBC 4.44 Hgb 13.5 Hct 42.2 MCV 94.9 MCH 30.4 MCHC 32.1 RDW 13.6 Plt Count 146 MPV 8.2 Absolute Neuts (auto) 2.6 Neutrophils % 52.3 D Lymphocytes % 34.1 D Monocytes % 12.5 H Eosinophils % 0.6 D Basophils % 0.5 Nucleated RBC % 0 Sodium Potassium Chloride Carbon Dioxide Anion Gap BUN Creatinine Creat Clearance w eGFR POC Glucometer [phone] Random Glucose Serum Osmolality Calcium Phosphorus Magnesium Total Bilirubin AST ALT Alkaline Phosphatase Creatine Kinase Creatine Kinase Index CK-MB (CK-2) Troponin I Total Protein Albumin TSH Urine Color Ltyellow Urine Appearance Clear Urine pH 7.0 D Ur Specific [place] 1.010 Urine Protein 3+ H Urine Glucose (UA) Negative Urine Ketones Trace H Urine Blood Negative Urine Nitrite Negative Urine Bilirubin Negative Urine Urobilinogen Negative Ur Leukocyte Esterase Negative Urine WBC (Auto) 1 Urine RBC (Auto) <1 Hyaline Casts 1 Urine Osmolality 05/28/18 05/28/18 05/28/18 09:47 11:14 12:18 WBC RBC Hgb Hct MCV MCH MCHC RDW Plt Count MPV Absolute Neuts (auto) Neutrophils % Lymphocytes % Monocytes % Eosinophils % Basophils % Nucleated RBC % Sodium 132 L Potassium 3.5 Chloride 97 L Carbon Dioxide 28 Anion Gap 7 L BUN 14 Creatinine 0.7 Creat Clearance w eGFR > 60 POC Glucometer [phone] Random Glucose 120 H Serum Osmolality 268 L Calcium 8.3 L Phosphorus 3.0 Magnesium 2.0 Total Bilirubin 1.2 H AST 20 ALT 15 Alkaline Phosphatase 77 Creatine Kinase Creatine Kinase Index CK-MB (CK-2) Troponin I 0.09 H Total Protein 5.9 L Albumin 3.3 L TSH 1.21 Urine Color Urine Appearance Urine pH Ur Specific [place] Urine Protein Urine Glucose (UA) Urine Ketones Urine Blood Urine Nitrite Urine Bilirubin Urine Urobilinogen Ur Leukocyte Esterase Urine WBC (Auto) Urine RBC (Auto) Hyaline Casts Urine Osmolality 311 Active Medications Generic Name Dose Route Start Last Admin Trade Name Ricardoq PRN Reason Stop Dose Admin Aspirin 81 mg 05/28/18 10:00 05/28/18 09:03 Asa - PO 81 mg DAILY LATOYA Administration Heparin Sodium (Porcine) 5,000 unit 05/28/18 14:00 Heparin - SQ TID LATOYA Sodium Chloride 1,000 mls @ 75 mls/hr 05/28/18 06:30 05/28/18 08:41 Normal Saline - IV 75 mls/hr ASDIR LATOYA Administration Insulin Aspart 1 vial 05/28/18 07:00 05/28/18 11:16 Novolog Vial Sliding Scale - SQ Not Given ACHS [facility] Protocol Lisinopril 40 mg 05/28/18 10:00 05/28/18 09:04 Prinivil PO 40 mg DAILY LATOYA Administration Metoprolol Succinate 200 mg 05/28/18 10:00 05/28/18 09:04 Toprol Xl - PO 200 mg DAILY LATOYA Administration Nitroglycerin 0.4 mg 05/28/18 06:45 Nitrostat - SL PRN LATOYA Non-Formulary Medication 10 mg 05/28/18 10:00 Pravastatin Sodium [Pravastatin Sodium] PO DAILY [facility] ASSESSMENT/PLAN: Patient is a 77 year old male with a significant past medical history of hypertension, cad w/p cabg 1989, hld, diabetes. patient presents to the ed s/p mechanical fall while exiting the bathtub. patient reports upper body tremors that make it difficult for him to ambulate. States he was in the ground for an hour after the fall. denies hitting his head. Mechanical fall. No obvious signs of injury. denies chest pain, or shortness of breath. no loc loss. Monitor on tele neuro notes reviewed cpk wnl physical therapy evaluation. monitor bgms ac/hs orthostatics q8 hmg a1c and lipid panel in a.m. Card: CAD s/p CABG. continue home meds. on tele monitoring. on toprol, lisinopril, asa HLD: lipid panel in am. trops flat trending seen by cardiology. Endocrine: Diabetes. on no home meds. monitor bgms. hmg a1c a.m. fen gentle hydration with ns @ 50cc/hr monitor electrolytes dietary consult start supplements prophy LOS <48 hours, may need placement physical therapy full code Visit type - Emergency Visit Emergency Visit: Yes ED Registration Date: 05/28/18 Care time: The patient presented to the Emergency Department on the above date and was hospitalized for further evaluation of their emergent condition. - New Patient This patient is new to me today: Yes Date on this admission: 05/28/18 - Critical Care Critical Care patient: No - Discharge Referral Referred to [facility] Med P.C.: No
[2018-05-28] MEDS: HEPARIN NA (PORCINE) 5,000 UNITS/ML 1ML VIAL SQ SCH (15:35)
[2018-05-28] MEDS ORDERED: ATORVASTATIN CA 10 MG TABLET (FP) PO SCH (22:00)
[2018-05-29 00:57] VITALS: BMI 22.1
[2018-05-29] MEDS: INSULIN SLIDING SCALE (NOVOLOG) 1 VIAL SQ SCH ×4 (01:00→17:17)
[2018-05-29] MEDS: HEPARIN NA (PORCINE) 5,000 UNITS/ML 1ML VIAL SQ SCH ×3 (01:06→16:21)
[2018-05-29] MEDS: SODIUM CHLORIDE 1,000 ML IV SCH (01:07)
[2018-05-29 07:47] LABS: BASO % 0.2 % (0-2.0); EOS % 1.4 % (0-4.5); HEMATOCRIT 37.4 % (35.4-49); HEMOGLOBIN 13.1 GM/dL (11.7-16.9); LYMPH % 45.4 % (8-40); MCH 32.8 pg (25.7-33.7); MEAN CELL VOLUME 93.7 fl (80-96); MEAN PLT VOLUME 9.1 fl (7.5-11.1); MONO % 11.9 % (3.8-10.2); NEUT % 41.1 % (42.8-82.8); PLATELET COUNT 138 K/MM3 (134-434); RBC 3.99 M/mm3 (4.00-5.60); RDW 13.7 % (11.9-15.9); WHITE BLOOD COUNT 3.9 K/mm3 (4.0-10.0)
[2018-05-29 08:18] LABS: ALBUMIN 2.9 g/dl (3.4-5.0); ALK PHOS 75 U/L (45-117); ANION GAP 6 MMOL/L (8-16); BILIRUBIN,TOTAL 0.7 mg/dL (0.2-1); BLOOD UREA NITROGEN 13 mg/dL (7-18); CALCIUM 8.2 mg/dL (8.5-10.1); CHLORIDE 104 mmol/L (98-107); CHOLESTEROL 111 mg/dL (50-200); CO2 29 mmol/L (21-32); CREATININE 0.6 mg/dL (0.55-1.3); GLUCOSE,RANDOM 75 mg/dL (74-106); HDL CHOLESTEROL 57 mg/dL (40-60); PHOSPHOROUS 2.8 mg/dL (2.5-4.9); POTASSIUM 3.6 mmol/L (3.5-5.1); SGOT/AST 23 U/L (15-37); SGPT/ALT 18 U/L (13-61); SODIUM 138 mmol/L (136-145); TOT PROT 5.4 g/dl (6.4-8.2); TRIGLYCERIDES 33 mg/dL (0-150)
--- NOTE | 2018-05-29 09:00 | PN ---
Progress Note (short form) - Note Progress Note: Neurology HISTORY OF PRESENT ILLNESS: 77 y/o M with PMHx of HTN, CAD s/p CABG in 1989, HLD, DM was BIBEMS after mechanical fall. Patient was recently discharged in February 2018 after experiencing a syncopal episode. Repoertedly while exiting the shower, patient fell to the ground after experiencing some "Shakes." Patient said he experiences these shakes in his upper spine and neck daily however this is the first time he has falling in 3 months. He denies slipping or tripping over anything. Patient recalled the event and hit his neck however denies hitting his head or LOC. Once on the ground, patient crawled to the telephone and called EMS. CT head completed and reviewed, no acute changes noted. CT C spine reviewed and without fracture or dislocation, DDD noted, disc protrusion noted. Neurologically stable overnight and no new events or complaints this AM. Allergies No Known Allergies Allergy (Verified 03/05/18 22:47) Active Medications Aspirin (Asa -) 81 mg PO DAILY [facility] Last Admin: 05/28/18 09:03 Dose: 81 mg Atorvastatin Calcium (Lipitor -) 10 mg PO HS [facility] Last Admin: 05/29/18 01:07 Dose: 10 mg Heparin Sodium (Porcine) (Heparin -) 5,000 unit SQ TID [facility] Last Admin: 05/29/18 05:48 Dose: 5,000 unit Sodium Chloride (Normal Saline -) 1,000 mls @ 75 mls/hr IV ASDIR [facility] Last Admin: 05/29/18 01:07 Dose: 75 mls/hr Insulin Aspart (Novolog Vial Sliding Scale -) 1 vial SQ ACHS [facility]; Protocol Last Admin: 05/29/18 06:17 Dose: Not Given Lisinopril (Prinivil) 40 mg PO DAILY [facility] Last Admin: 05/28/18 09:04 Dose: 40 mg Metoprolol Succinate (Toprol Xl -) 200 mg PO DAILY [facility] Nitroglycerin (Nitrostat -) 0.4 mg SL PRN [facility] PHYSICAL EXAMINATION Vital Signs Period Temp Pulse Resp BP Sys/Becerril Pulse Ox Last 24 Hr 97.2 F-98.6 F 50-100 16-20 120-149/58-73 98-99 GENERAL: A&Ox3, NAD HEAD: NCAT EYES: PERRL, EOMI EARS, NOSE, THROAT: Oropharynx clear without exudates. Moist mucous membranes. NECK: No midline tenderness to palpation LUNGS: CTA b/l, No wheezes, no crackles. HEART: Regular rate and rhythm, normal S1 and S2 without murmur ABDOMEN: Soft, nontender, not distended, + bowel sounds, no guarding MUSCULOSKELETAL: Normal range of motion at all joints. No bony deformities or tenderness. EXTREMITIES: 2+ pulses, No peripheral edema. NEUROLOGICAL: Cranial nerves II-XII intact. Normal speech. Gross sensation intact throughout. 5/5 muscle strength throughout, finger to nose normal, gait deferred SKIN: Warm, dry CBCD WBC 3.9 K/mm3 (4.0-10.0) L 05/29/18 05:30 RBC 3.99 M/mm3 (4.00-5.60) L 05/29/18 05:30 Hgb 13.1 GM/dL (11.7-16.9) 05/29/18 05:30 Hct 37.4 % (35.4-49) 05/29/18 05:30 MCV 93.7 fl (80-96) 05/29/18 05:30 MCHC 35.0 g/dl (32.0-35.9) 05/29/18 05:30 RDW 13.7 % (11.9-15.9) 05/29/18 05:30 Plt Count 138 K/MM3 (134-434) 05/29/18 05:30 MPV 9.1 fl (7.5-11.1) D 05/29/18 05:30 CMP Sodium 138 mmol/L (136-145) 05/29/18 05:30 Potassium 3.6 mmol/L (3.5-5.1) 05/29/18 05:30 Chloride 104 mmol/L (98-107) 05/29/18 05:30 Carbon Dioxide 29 mmol/L (21-32) 05/29/18 05:30 Anion Gap 6 MMOL/L (8-16) L 05/29/18 05:30 BUN 13 mg/dL (7-18) 05/29/18 05:30 Creatinine 0.6 mg/dL (0.55-1.3) 05/29/18 05:30 Creat Clearance w eGFR > 60 (>60) 05/29/18 05:30 Random Glucose 75 mg/dL (74-106) 05/29/18 05:30 Calcium 8.2 mg/dL (8.5-10.1) L 05/29/18 05:30 Total Bilirubin 0.7 mg/dL (0.2-1) 05/29/18 05:30 AST 23 U/L (15-37) 05/29/18 05:30 ALT 18 U/L (13-61) 05/29/18 05:30 Alkaline Phosphatase 75 U/L (45-117) 05/29/18 05:30 Total Protein 5.4 g/dl (6.4-8.2) L 05/29/18 05:30 Albumin 2.9 g/dl (3.4-5.0) L 05/29/18 05:30 CARDIAC ENZYMES Creatine Kinase 250 IU/L (26-308) 05/28/18 03:40 Troponin I 0.06 ng/ml (0.00-0.05) H 05/28/18 19:30 ASSESSMENT/PLAN: 77 y/o M with PMHx of HTN, CAD s/p CABG in 1989, HLD, DM was BIBEMS after mechanical fall. Patient was recently discharged in February 2018 after experiencing a syncopal episode. Repoertedly while exiting the shower, patient fell to the ground after experiencing some "Shakes." Patient said he experiences these shakes in his upper spine and neck daily however this is the first time he has falling in 3 months. He denies slipping or tripping over anything. Patient recalled the event and hit his neck however denies hitting his head or LOC. Once on the ground, patient crawled to the telephone and called EMS. At this time he was unable to lift himself off the ground. Denied any associated numbness, tingling, weakness, fevers, chills, chest pain, SOB, nausea, vomiting, diarrhea, palpitation, lightheadedness, dizziness, blurry vision. Patient only uses his glasses for reading and denies any recent script change. Patient last saw his PCP about 3 months ago and denies any recent medication changes. Patient daughters regularly visit him. Denied any decreased PO Intake. CT head completed and reviewed, no acute changes noted. CT C spine reviewed and without fracture or dislocation, DDD noted, disc protrusion noted. Check orthostatics. Hydration as tolerated. Monitor K, patient with hypoK on labs, optimize as able. Also with hypoNa, optimize as able. Monitor glucose, maintain euglycemic range. Neurologically stable appearing.
[2018-05-29] MEDS: LISINOPRIL 20 MG TABLET (FP) PO SCH (09:19)
[2018-05-29] MEDS: ASPIRIN 81 MG CHEWABLE TABLETS PO SCH (09:19)
--- NOTE | 2018-05-29 09:54 | PN ---
Progress Note (short form) - Note Progress Note: History of Present Illness: feels better today, no chest pain, palps, dizziness, lightheadedness Current Medications Aspirin (Asa -) 81 mg PO DAILY [facility] Last Admin: 05/29/18 09:19 Dose: 81 mg Atorvastatin Calcium (Lipitor -) 10 mg PO HS [facility] Last Admin: 05/29/18 01:07 Dose: 10 mg Heparin Sodium (Porcine) (Heparin -) 5,000 unit SQ TID [facility] Last Admin: 05/29/18 05:48 Dose: 5,000 unit Sodium Chloride (Normal Saline -) 1,000 mls @ 75 mls/hr IV ASDIR [facility] Last Admin: 05/29/18 01:07 Dose: 75 mls/hr Insulin Aspart (Novolog Vial Sliding Scale -) 1 vial SQ ACHS [facility]; Protocol Last Admin: 05/29/18 06:17 Dose: Not Given Lisinopril (Prinivil) 40 mg PO DAILY [facility] Last Admin: 05/29/18 09:19 Dose: 40 mg Metoprolol Succinate (Toprol Xl -) 200 mg PO DAILY [facility] Last Admin: 05/29/18 09:18 Dose: 200 mg Nitroglycerin (Nitrostat -) 0.4 mg SL PRN [facility] Vital Signs: Vital Signs Period Temp Pulse Resp BP Sys/Becerril Pulse Ox Last 24 Hr 97.2 F-98.6 F 50-100 16-20 120-180/58-92 98-99 Constitutional: Yes: Well Nourished, No Distress Eyes: No: Sclera Icterus HENT: No: Nasal Congestion Neck: No: Decreased ROM Respiratory: Yes: CTA Bilaterally . No: Accessory Muscle Use, Rales, Wheezes Gastrointestinal: Yes: Normal Bowel Sounds. No: Distention, Hepatomegaly, Palpable Mass, Tenderness Cardiovascular: Yes: Regular Rate and Rhythm JVD: No Carotid Bruit: No PMI: Non-Displaced Heart Sounds: Yes: S1, S2. No: Gallop Murmur: No: Systolic Murmur, Diastolic Murmur Musculoskeletal: Yes: Other (No kyphosis) Extremities: No: Cool, Cyanosis Edema: No Peripheral Pulses: 2+ Left Carotid, 2+ Right Carotid, 2+ Left Doralis Pedis, 2+ Right Dorsalis Pedis Integumentary: No: Jaundice Neurological: Yes: Alert, Oriented (x3), Other (moves both legs and feet, gross touch sensation intact bilateral feet) Psychiatric: No: Agitated Assessment/Plan ECG sinus, first degree AV block, RBBB, LVH with strain CXR: no acute process Echo 02/2018 nl LV/EF. no RWMA described. nl RV. mild L/NASIMA. mild AI. MIBI 2015: 9:30min, no STs, no isch; nl EF, no LVE/TID tele: sinus laura s/p fall - no loss of consciousness, likely mechanical - neuro consulted elevated trop, chronic ischemic heart disease: -S/P CABG 1989 - denies chest pain - trop mildly elevated, flat trend, not consistent with ACS, EKG similar to prior - cont home aspirin, bb, statin Essential hypertension: - cont home meds lisinopril, metoprolol Pure hypercholesterolemia: - cont statin Impaired fasting glucose: - manage per primary
--- NOTE | 2018-05-29 17:26 | DS ---
Physical Examination Vital Signs: Vital Signs Temperature 98.6 F 05/29/18 15:01 Pulse Rate 56 L 05/29/18 15:01 Respiratory Rate 20 05/29/18 15:01 Blood Pressure 158/82 05/29/18 15:01 O2 Sat by Pulse Oximetry (%) 98 05/29/18 10:00 Constitutional: Yes: No Distress, Calm Eyes: Yes: Conjunctiva Clear, PERRL HENT: Yes: Atraumatic, Normocephalic Neck: Yes: Supple, Trachea Midline Cardiovascular: Yes: Regular Rate and Rhythm Respiratory: Yes: Regular, CTA Bilaterally Gastrointestinal: Yes: Normal Bowel Sounds, Soft ...Rectal Exam: Yes: Deferred Musculoskeletal: Yes: WNL Extremities: Yes: WNL Edema: No Peripheral Pulses WNL: Yes Peripheral Pulses: Left Radial: 2+, Right Radial: 2+ Integumentary: Yes: WNL Neurological: Yes: Alert, Oriented ...Motor Strength: WNL Psychiatric: Yes: Alert, Oriented Labs: CBC, BMP 05/29/18 05:30 05/29/18 05:30 Discharge Summary Reason For Visit: MOVEMENT DISORDER,PRE-SYNCOPE,RECURRENT FALLS Current Active Problems Movement disorder (Acute) Near syncope (Acute) Recurrent falls (Acute) Procedures: Principal: CXR 05/28/18: Previous OHS. Large Heart. No acute chest pathology. Slightly more prominent heart than on 03/06/2018. CT brain and Neck 05/28/2018. No fracture or subluxation are identified. Moderate degenerative disc disease at C5-C6 level with uncovertebral hypertrophy slightly to moderately narrowing of the left neural foramen. C6-7 moderate central disc protrusion with faint posterior spur formation likely impinging anterior surface of the cervical cord. Hospital Course: 77 y/o M with PMHx of HTN, CAD s/p CABG in 1989, HLD, DM was BIBEMS after mechanical fall. Patient was recently discharged in February 2018 after experiencing a syncopal episode. Today around 23:30 while exiting the shower, patient fell to the ground after experiencing some "Shakes." Patient says he experiences these shakes in his upper spine and neck daily however this is the first time he has falling in 3 months. He denies slipping or tripping over anything. Patient recalls the even and hit his neck however denies hitting his head or LOC. Once on the ground, patient crawled to the telephone and called EMS. At this time he was unable to lift himself off the ground. Denies any associated numbness, tingling, weakness, fevers, chills, chest pain, SOB, nausea , vomiting, diarrhea, palpitation, lightheadedness, dizziness, blurry vision. Imaging of head and neck negative for acute pathologies. Pt admitted for observation and rehydrated with IV fluids. Pt deemed stable for discharge but refuses placement in snf care facility or PER DIEM RN services. He will be discharged to the care of his family. Pt advised to resume home meds and follow up with PCP. Condition: Good - Instructions Referrals: Deepthi Coats MD [Primary Care Provider] - Disposition: HOME - Home Medications Comprehensive Discharge Medication List: Ambulatory Orders Dorzolamide/Timolol/Pf [Timolol 0.5%-Dorzolamide 2%] 10 ml OP DAILY 03/06/18 Lisinopril [Prinivil -] 40 mg PO DAILY 03/06/18 Pravastatin Sodium 10 mg PO DAILY 03/06/18 metFORMIN HCL [Metformin ER Osmotic] 500 mg PO DAILY 03/06/18 Aspirin [ASA -] 81 mg PO DAILY #30 tab.chew 03/07/18 Metoprolol Succinate [Toprol Xl] 200 mg PO DAILY 03/07/18 Nitroglycerin 0.4 mg SL PRN 03/07/18 This patient is new to me today: Yes Date on this admission: 05/29/18 Emergency Visit: Yes ED Registration Date: 05/28/18 Care time: The patient presented to the Emergency Department on the above date and was hospitalized for further evaluation of their emergent condition. Critical Care patient: No - Discharge Referral Referred to [facility] Med P.C.: No
[2018-05-29 18:28] VITALS: BP 160/80; PULSE 62; TEMP 98
== END 2018-05-29 19:16 | disposition home or self-care (01) ==
LOC: JER 02:14 → INTOOBSV 05:12 → OBSVTOIN 05:12 → JERBED 05:12 → UNDOADMOB 05:12 → JERBED 05:12 → J4W 22:40
PROVIDERS: ADMIT Internal Medicine; ATTEND Nurse Practitioner Family
PROC: 3E033GC Introduction of Other Therapeutic Substance into Peripheral Vein, Percutaneous Approach (ICD-10-PCS; principal; 2018-05-28)
PROC: 3E0337Z Introduction of Electrolytic and Water Balance Substance into Peripheral Vein, Percutaneous Approach (ICD-10-PCS; 2018-05-28)
DX: Z04.3 Encounter for examination and observation following other accident (principal); Z91.81 History of falling; I10 Essential (primary) hypertension; I25.10 Atherosclerotic heart disease of native coronary artery without angina pectoris; E78.5 Hyperlipidemia, unspecified; E11.9 Type 2 diabetes mellitus without complications; E87.6 Hypokalemia; R77.8 Other specified abnormalities of plasma proteins; Z95.1 Presence of aortocoronary bypass graft; Z79.82 Long term (current) use of aspirin; Z79.84 Long term (current) use of oral hypoglycemic drugs; I25.9 Chronic ischemic heart disease, unspecified; G25.9 Extrapyramidal and movement disorder, unspecified; R55 Syncope and collapse; R29.6 Repeated falls; W01.198A Fall on same level from slipping, tripping and stumbling with subsequent striking against other object, initial encounter; Y93.E1 Activity, personal bathing and showering; Y92.002 Bathroom of unspecified non-institutional (private) residence as the place of occurrence of the external cause
CPT/HCPCS: 36415; 70450-TC; 71045-TC-FY; 72125-TC; 80053; 80061; 81003; 81015; 82550; 82553; 82962; 83036; 83721; 83735; 83930; 83935; 84100; 84443; 84484; 85025; 85027; 87086; 93005; 93010; 96365; 96366; 97116-GP; 97161-GP; 99285-25; G0378; J1644; J7030

== ENCOUNTER 2020-06-23 15:27 | Inpatient (IN) | payer OTHER ==
[2020-06-23 16:26] VITALS: BMI 22.1
[2020-06-23 17:35] LABS: BASO % 0.9 % (0-2.0); EOS % 0.1 % (0-4.5); HEMATOCRIT 37.5 % (35.4-49); HEMOGLOBIN 12.9 GM/dL (11.7-16.9); LYMPH % 20.4 % (8-40); MCH 32.3 pg (25.7-33.7); MCHC 34.3 g/dl (32.0-35.9); MEAN CELL VOLUME 94.3 fl (80-96); MEAN PLT VOLUME 8.5 fl (7.5-11.1); MONO % 10.5 % (3.8-10.2); NEUT % 68.1 % (42.8-82.8); PLATELET COUNT 150 K/MM3 (134-434); RBC 3.98 M/mm3 (4.00-5.60); WHITE BLOOD COUNT 4.7 K/mm3 (4.0-10.0)
[2020-06-23 17:54] LABS: CHLORIDE 89 mmol/L (98-107)
[2020-06-23 17:56] LABS: BLOOD UREA NITROGEN 19.6 mg/dL (7-18); CALCIUM 8.1 mg/dL (8.5-10.1); CO2 29 mmol/L (21-32); GLUCOSE,RANDOM 95 mg/dL (74-106)
[2020-06-23 17:59] LABS: CREATININE 0.8 mg/dL (0.55-1.3)
[2020-06-23 18:01] LABS: TOT PROT 7.6 g/dl (6.4-8.2)
[2020-06-23 18:02] LABS: ALK PHOS 95 U/L (45-117)
[2020-06-23 18:05] LABS: N-TERMINAL BNP 2842.7 pg/ml (5-450)
[2020-06-23 18:31] LABS: ANION GAP -5 MMOL/L (8-16); SGOT/AST 155 U/L (15-37)
[2020-06-23 18:34] LABS: POTASSIUM > 10.0 mmol/L (3.5-5.1); SODIUM 114 mmol/L (136-145)
[2020-06-23 21:25] LABS: POTASSIUM 3.6 mmol/L (3.5-5.1)
[2020-06-23 21:29] LABS: BLOOD UREA NITROGEN 17.9 mg/dL (7-18); CALCIUM 8.6 mg/dL (8.5-10.1)
[2020-06-23 21:32] LABS: CREATININE 0.9 mg/dL (0.55-1.3)
[2020-06-23] MEDS ORDERED: ASPIRIN 81 MG CHEWABLE TABLETS PO ONE (21:48)
[2020-06-23] MEDS ORDERED: SODIUM CHLORIDE 1,000 ML IV SCH (22:00)
[2020-06-23] MEDS ORDERED: ASPIRIN 81 MG CHEWABLE TABLETS ONE (22:02)
[2020-06-24 00:58] LABS: EPI CELLS 3 /uL (0-25.1); HYALINE CASTS 0 /uL (0-3.1); PH,URINE 5.5 (5.0-8.0); URINE APPEARANCE CLEAR; URINE BACTERIA 46 /uL (0-1359); URINE BILIRUBIN NEGATIVE (NEGATIVE); URINE COLOR YELLOW; URINE GLUCOSE (UA) NEGATIVE (NEGATIVE); URINE KETONE NEGATIVE (NEGATIVE); URINE LEUK ESTERASE NEGATIVE (NEGATIVE); URINE NITRITE NEGATIVE (NEGATIVE); URINE PROTEIN 2+ (NEGATIVE); URINE RBC 17 /uL (0-23.9); URINE WBC 1 /uL (0-25.8)
[2020-06-24 06:02] LABS: POTASSIUM 3.7 mmol/L (3.5-5.1)
[2020-06-24 06:04] LABS: ALBUMIN 3.1 g/dl (3.4-5.0); BLOOD UREA NITROGEN 18.3 mg/dL (7-18); CALCIUM 8.6 mg/dL (8.5-10.1); MAGNESIUM 2.2 mg/dL (1.8-2.4)
[2020-06-24 06:07] LABS: CREATININE 0.7 mg/dL (0.55-1.3)
[2020-06-24 06:09] LABS: BILIRUBIN,TOTAL 1.2 mg/dL (0.2-1); TOT PROT 5.6 g/dl (6.4-8.2)
[2020-06-24] MEDS ORDERED: SODIUM CHLORIDE 1,000 ML IV SCH (06:54)
[2020-06-24] MEDS: INSULIN SLIDING SCALE (NOVOLOG) 1 VIAL SQ SCH ×4 (06:54→21:29)
[2020-06-24] MEDS ORDERED: FLU VACCINE (FLULAVAL) PF 60 MCG/0.5 ML SYRINGE 2020-2021 IM ONE (10:00)
[2020-06-24 10:19] LABS: BASO % 0.4 % (0-2.0); EOS % 0.3 % (0-4.5); HEMATOCRIT 40.4 % (35.4-49); HEMOGLOBIN 13.9 GM/dL (11.7-16.9); LYMPH % 27.2 % (8-40); MCH 32.3 pg (25.7-33.7); MCHC 34.4 g/dl (32.0-35.9); MEAN PLT VOLUME 8.1 fl (7.5-11.1); MONO % 13.3 % (3.8-10.2); NEUT % 58.8 % (42.8-82.8); PLATELET COUNT 138 K/MM3 (134-434); RDW 14.4 % (11.9-15.9); WHITE BLOOD COUNT 3.7 K/mm3 (4.0-10.0)
[2020-06-24] MEDS: ENOXAPARIN NA (PORCINE) 40 MG/0.4 ML DISP.SYRIN SQ SCH (10:36)
[2020-06-24] MEDS: BACITRACIN 15 GM TUBE TOPICAL OINTMENT TP SCH ×2 (11:50→21:30)
[2020-06-24] MEDS ORDERED: PT OWN MED DRAWER 7, Y5N ONE (21:08)
[2020-06-24] MEDS ORDERED: LATANOPROST 0.005% OPHTH SOLN 2.5ML BOTTLE OU SCH (22:00)
[2020-06-25] MEDS: INSULIN SLIDING SCALE (NOVOLOG) 1 VIAL SQ SCH ×2 (06:00→13:50)
[2020-06-25] MEDS ORDERED: REGADENOSON 0.4 MG/5 ML PRE-FILLED SYRINGE IVPUSH ONE ×2 (09:45→10:00)
[2020-06-25] MEDS ORDERED: ASPIRIN 81 MG CHEWABLE TABLETS PO SCH (10:00)
[2020-06-25] MEDS ORDERED: LISINOPRIL 20 MG TABLET PO SCH (10:00)
[2020-06-25] MEDS ORDERED: metoPROLOL SUCCINATE 25 MG TAB.SR.24H (FP) PO SCH (10:00)
[2020-06-25] MEDS ORDERED: TAMSULOSIN HCL 0.4 MG CAP PO SCH (10:00)
[2020-06-25] MEDS: BACITRACIN 15 GM TUBE TOPICAL OINTMENT TP SCH (13:35)
[2020-06-25] MEDS: ENOXAPARIN NA (PORCINE) 40 MG/0.4 ML DISP.SYRIN SQ SCH (13:36)
[2020-06-25 14:06] VITALS: BP 178/74; PULSE 56; TEMP 98.3
[2020-06-25 14:35] LABS: BASO % 0.4 % (0-2.0); EOS % 0.4 % (0-4.5); HEMATOCRIT 47.3 % (35.4-49); HEMOGLOBIN 16.1 GM/dL (11.7-16.9); MCH 32.5 pg (25.7-33.7); MEAN CELL VOLUME 95.6 fl (80-96); MEAN PLT VOLUME 8.3 fl (7.5-11.1); MONO % 14.4 % (3.8-10.2); NEUT % 60.8 % (42.8-82.8); PLATELET COUNT 135 K/MM3 (134-434); RBC 4.94 M/mm3 (4.00-5.60); RDW 14.5 % (11.9-15.9); WHITE BLOOD COUNT 5.2 K/mm3 (4.0-10.0)
[2020-06-25 14:52] LABS: POTASSIUM 4.6 mmol/L (3.5-5.1)
[2020-06-25 14:54] LABS: CALCIUM 8.8 mg/dL (8.5-10.1)
[2020-06-25 14:55] LABS: ALBUMIN 3.7 g/dl (3.4-5.0); BLOOD UREA NITROGEN 15.4 mg/dL (7-18); MAGNESIUM 2.1 mg/dL (1.8-2.4)
[2020-06-25 14:58] LABS: CREATININE 0.6 mg/dL (0.55-1.3)
[2020-06-25 14:59] LABS: BILIRUBIN,TOTAL 1.2 mg/dL (0.2-1); TOT PROT 6.9 g/dl (6.4-8.2)
== END 2020-06-25 16:30 | disposition home or self-care (01) | DRG 641 ==
LOC: JER 15:27 → JERBED 21:03 → J4S 06-24 06:23
PROVIDERS: ADMIT Hospitalist; ATTEND Nurse Practitioner Acute Care
DX: E87.1 Hypo-osmolality and hyponatremia (principal); I45.2 Bifascicular block; G25.9 Extrapyramidal and movement disorder, unspecified; I25.10 Atherosclerotic heart disease of native coronary artery without angina pectoris; I10 Essential (primary) hypertension; E78.5 Hyperlipidemia, unspecified; R00.1 Bradycardia, unspecified; E11.9 Type 2 diabetes mellitus without complications; I45.10 Unspecified right bundle-branch block; E87.5 Hyperkalemia; W18.30XA Fall on same level, unspecified, initial encounter; H40.9 Unspecified glaucoma; R29.6 Repeated falls; R77.8 Other specified abnormalities of plasma proteins; R55 Syncope and collapse; Z95.1 Presence of aortocoronary bypass graft; Z98.61 Coronary angioplasty status; Y92.098 Other place in other non-institutional residence as the place of occurrence of the external cause
CPT/HCPCS: 36415; 70450-TC; 71045-TC-FY; 72125-TC; 72170-TC-FY; 78452-TC; 80048; 80053; 81003; 82436; 82550; 82553; 82962; 83735; 83880; 83930; 83935; 84133; 84300; 84443; 84484; 85025; 87086; 93005; 93010; 93017; 93306-TC; 93880-TC; 97116-GP; 97161-GP; 99285-25; A9502; C9803; G0008; J2785; Q2036; U0003

== ENCOUNTER 2020-07-07 16:33 | Inpatient (IN) | payer OTHER ==
[2020-07-07 16:49] VITALS: BMI 28.3
[2020-07-07 18:51] LABS: BASO % 0.7 % (0-2.0); EOS % 0.9 % (0-4.5); HEMATOCRIT 36.5 % (35.4-49); HEMOGLOBIN 12.4 GM/dL (11.7-16.9); LYMPH % 34.3 % (8-40); MCH 32.1 pg (25.7-33.7); MCHC 33.8 g/dl (32.0-35.9); MEAN CELL VOLUME 94.9 fl (80-96); MEAN PLT VOLUME 8.3 fl (7.5-11.1); MONO % 14.1 % (3.8-10.2); PLATELET COUNT 157 K/MM3 (134-434); RBC 3.85 M/mm3 (4.00-5.60); RDW 14.2 % (11.9-15.9)
[2020-07-07 19:00] LABS: INR 1.14 (0.83-1.09); PROTHROMBIN TIME (PATIENT) 13.7 SEC (9.7-13.0)
[2020-07-07 19:13] LABS: CHLORIDE 97 mmol/L (98-107); POTASSIUM 4.1 mmol/L (3.5-5.1); SODIUM 132 mmol/L (136-145)
[2020-07-07 19:15] LABS: ALBUMIN 3.4 g/dl (3.4-5.0); ANION GAP 4 MMOL/L (8-16); BLOOD UREA NITROGEN 12.7 mg/dL (7-18); CALCIUM 8.7 mg/dL (8.5-10.1); CO2 31 mmol/L (21-32); GLUCOSE,RANDOM 74 mg/dL (74-106); MAGNESIUM 2.1 mg/dL (1.8-2.4)
[2020-07-07 19:18] LABS: CREATININE 0.6 mg/dL (0.55-1.3); SGOT/AST 33 U/L (15-37); SGPT/ALT 23 U/L (13-61)
[2020-07-07 19:20] LABS: BILIRUBIN,TOTAL 0.6 mg/dL (0.2-1); TOT PROT 6.5 g/dl (6.4-8.2)
[2020-07-07 19:21] LABS: ALK PHOS 106 U/L (45-117)
[2020-07-07] MEDS ORDERED: ATORVASTATIN CA 10 MG TABLET (FP) ONE (22:08)
[2020-07-07] MEDS: ATORVASTATIN CA 10 MG TABLET (FP) PO SCH (22:14)
[2020-07-07] MEDS: INSULIN SLIDING SCALE (NOVOLOG) 1 VIAL SQ SCH (22:14)
[2020-07-08] MEDS: INSULIN SLIDING SCALE (NOVOLOG) 1 VIAL SQ SCH ×4 (07:39→21:24)
[2020-07-08 08:07] LABS: CALCIUM 8.5 mg/dL (8.5-10.1)
[2020-07-08 08:11] LABS: CREATININE 0.6 mg/dL (0.55-1.3)
[2020-07-08] MEDS ORDERED: PATIENT'S OWN MEDICATION (NON-FORMULARY) (Dorzolamide/Timolol/Pf [Timolol 0.5%-Dorzolamide OP SCH (10:00)
[2020-07-08] MEDS ORDERED: ASPIRIN 81 MG CHEWABLE TABLETS ONE (11:15)
[2020-07-08] MEDS: ENOXAPARIN NA (PORCINE) 40 MG/0.4 ML DISP.SYRIN SQ SCH (11:15)
[2020-07-08] MEDS: ASPIRIN 81 MG CHEWABLE TABLETS PO SCH (11:15)
[2020-07-08] MEDS ORDERED: ENOXAPARIN NA (PORCINE) 40 MG/0.4 ML DISP.SYRIN SQ ONE (11:16)
[2020-07-08] MEDS: LISINOPRIL 20 MG TABLET PO SCH (16:16)
[2020-07-08] MEDS: ATORVASTATIN CA 10 MG TABLET (FP) PO SCH (21:24)
[2020-07-09] MEDS: INSULIN SLIDING SCALE (NOVOLOG) 1 VIAL SQ SCH ×4 (06:34→21:22)
[2020-07-09] MEDS: LISINOPRIL 20 MG TABLET PO SCH (08:59)
[2020-07-09] MEDS: ENOXAPARIN NA (PORCINE) 40 MG/0.4 ML DISP.SYRIN SQ SCH (09:00)
[2020-07-09] MEDS: ASPIRIN 81 MG CHEWABLE TABLETS PO SCH (09:00)
[2020-07-09] MEDS: ATORVASTATIN CA 10 MG TABLET (FP) PO SCH (21:22)
[2020-07-10] MEDS: INSULIN SLIDING SCALE (NOVOLOG) 1 VIAL SQ SCH ×4 (06:15→22:22)
[2020-07-10 07:38] LABS: HEMATOCRIT 38.8 % (35.4-49); HEMOGLOBIN 13.3 GM/dL (11.7-16.9); MCH 32.8 pg (25.7-33.7); MCHC 34.4 g/dl (32.0-35.9); MEAN CELL VOLUME 95.5 fl (80-96); MEAN PLT VOLUME 8.5 fl (7.5-11.1); PLATELET COUNT 136 K/MM3 (134-434); RBC 4.06 M/mm3 (4.00-5.60); RDW 14.5 % (11.9-15.9); WHITE BLOOD COUNT 4.2 K/mm3 (4.0-10.0)
[2020-07-10 07:56] LABS: POTASSIUM 3.9 mmol/L (3.5-5.1)
[2020-07-10 08:18] LABS: BLOOD UREA NITROGEN 17.4 mg/dL (7-18); CALCIUM 8.3 mg/dL (8.5-10.1); CREATININE 0.6 mg/dL (0.55-1.3)
[2020-07-10] MEDS: ASPIRIN 81 MG CHEWABLE TABLETS PO SCH (10:05)
[2020-07-10] MEDS: LISINOPRIL 20 MG TABLET PO SCH (10:05)
[2020-07-10] MEDS: ENOXAPARIN NA (PORCINE) 40 MG/0.4 ML DISP.SYRIN SQ SCH (10:05)
[2020-07-10] MEDS: ATORVASTATIN CA 10 MG TABLET (FP) PO SCH (22:21)
[2020-07-10] MEDS: TIMOLOL 0.5% OPHTHALMIC SOL 5 ML BOTTLE OU SCH (22:24)
[2020-07-10] MEDS: DORZOLAMIDE 2% HCL OPHTHALMIC SOLUTION 10 ML BOTTLE OU SCH (22:24)
[2020-07-11] MEDS: INSULIN SLIDING SCALE (NOVOLOG) 1 VIAL SQ SCH ×4 (06:30→22:51)
[2020-07-11 08:04] LABS: HEMATOCRIT 37.8 % (35.4-49); HEMOGLOBIN 12.9 GM/dL (11.7-16.9); MCH 32.7 pg (25.7-33.7); MCHC 34.2 g/dl (32.0-35.9); MEAN CELL VOLUME 95.6 fl (80-96); MEAN PLT VOLUME 8.4 fl (7.5-11.1); PLATELET COUNT 144 K/MM3 (134-434); RBC 3.96 M/mm3 (4.00-5.60); RDW 14.4 % (11.9-15.9); WHITE BLOOD COUNT 4.1 K/mm3 (4.0-10.0)
[2020-07-11 08:57] LABS: BLOOD UREA NITROGEN 18.4 mg/dL (7-18)
[2020-07-11 09:00] LABS: CALCIUM 8.5 mg/dL (8.5-10.1); CREATININE 0.6 mg/dL (0.55-1.3)
[2020-07-11] MEDS: LISINOPRIL 20 MG TABLET PO SCH ×2 (10:44→22:37)
[2020-07-11] MEDS: ASPIRIN 81 MG CHEWABLE TABLETS PO SCH (10:44)
[2020-07-11] MEDS: ENOXAPARIN NA (PORCINE) 40 MG/0.4 ML DISP.SYRIN SQ SCH (10:44)
[2020-07-11] MEDS: TIMOLOL 0.5% OPHTHALMIC SOL 5 ML BOTTLE OU SCH ×2 (10:45→22:51)
[2020-07-11] MEDS: DORZOLAMIDE 2% HCL OPHTHALMIC SOLUTION 10 ML BOTTLE OU SCH ×2 (10:45→22:51)
[2020-07-11] MEDS: ATORVASTATIN CA 20 MG TABLET (FP) PO SCH (22:37)
[2020-07-12] MEDS: INSULIN SLIDING SCALE (NOVOLOG) 1 VIAL SQ SCH ×4 (06:31→22:09)
[2020-07-12] MEDS: ENOXAPARIN NA (PORCINE) 40 MG/0.4 ML DISP.SYRIN SQ SCH (10:00)
[2020-07-12] MEDS: LISINOPRIL 20 MG TABLET PO SCH ×2 (10:30→22:09)
[2020-07-12] MEDS: ASPIRIN 81 MG CHEWABLE TABLETS PO SCH (10:30)
[2020-07-12] MEDS: DORZOLAMIDE 2% HCL OPHTHALMIC SOLUTION 10 ML BOTTLE OU SCH ×2 (10:32→22:17)
[2020-07-12] MEDS: TIMOLOL 0.5% OPHTHALMIC SOL 5 ML BOTTLE OU SCH ×2 (10:32→22:17)
[2020-07-12 12:15] LABS: BASO % 0.7 % (0-2.0); EOS % 1.2 % (0-4.5); HEMATOCRIT 39.4 % (35.4-49); HEMOGLOBIN 13.5 GM/dL (11.7-16.9); LYMPH % 21.2 % (8-40); MCH 32.6 pg (25.7-33.7); MCHC 34.2 g/dl (32.0-35.9); MEAN CELL VOLUME 95.4 fl (80-96); MEAN PLT VOLUME 8.4 fl (7.5-11.1); MONO % 12.5 % (3.8-10.2); NEUT % 64.4 % (42.8-82.8); PLATELET COUNT 152 K/MM3 (134-434); RBC 4.13 M/mm3 (4.00-5.60); RDW 14.2 % (11.9-15.9); WHITE BLOOD COUNT 4.7 K/mm3 (4.0-10.0)
[2020-07-12 12:23] LABS: INR 1.15 (0.83-1.09); PROTHROMBIN TIME (PATIENT) 14.1 SEC (9.7-13.0)
[2020-07-12 12:48] LABS: POTASSIUM 4.5 mmol/L (3.5-5.1)
[2020-07-12 12:50] LABS: BLOOD UREA NITROGEN 19.2 mg/dL (7-18); CALCIUM 8.7 mg/dL (8.5-10.1)
[2020-07-12 12:54] LABS: CREATININE 0.7 mg/dL (0.55-1.3)
[2020-07-12 13:36] LABS: PHOSPHOROUS 3.1 mg/dL (2.5-4.9)
[2020-07-12] MEDS: TAMSULOSIN HCL 0.4 MG CAP PO SCH (18:23)
[2020-07-12] MEDS: ATORVASTATIN CA 20 MG TABLET (FP) PO SCH (22:09)
[2020-07-13] MEDS ORDERED: VANCOMYCIN 1 GRAM (PRE-DOCKED) 1,000 MG/250 ML BAG IVPB ONE (08:00)
[2020-07-13] MEDS: INSULIN SLIDING SCALE (NOVOLOG) 1 VIAL SQ SCH ×4 (08:10→21:11)
[2020-07-13 08:41] LABS: BASO % 0.3 % (0-2.0); EOS % 1.2 % (0-4.5); HEMOGLOBIN 12.3 GM/dL (11.7-16.9); LYMPH % 31.1 % (8-40); MCH 32.5 pg (25.7-33.7); MCHC 34.2 g/dl (32.0-35.9); MEAN CELL VOLUME 95.1 fl (80-96); MEAN PLT VOLUME 8.8 fl (7.5-11.1); MONO % 15.3 % (3.8-10.2); NEUT % 52.1 % (42.8-82.8); PLATELET COUNT 138 K/MM3 (134-434); RBC 3.79 M/mm3 (4.00-5.60); RDW 14.3 % (11.9-15.9); WHITE BLOOD COUNT 4.5 K/mm3 (4.0-10.0)
[2020-07-13 08:53] LABS: INR 1.14 (0.83-1.09); PROTHROMBIN TIME (PATIENT) 13.7 SEC (9.7-13.0)
[2020-07-13 08:57] LABS: POTASSIUM 4.2 mmol/L (3.5-5.1)
[2020-07-13 09:04] LABS: BLOOD UREA NITROGEN 19.3 mg/dL (7-18); CREATININE 0.7 mg/dL (0.55-1.3)
[2020-07-13 09:05] LABS: CALCIUM 8.1 mg/dL (8.5-10.1); PHOSPHOROUS 3.7 mg/dL (2.5-4.9)
[2020-07-13 09:06] LABS: BILIRUBIN,TOTAL 0.6 mg/dL (0.2-1); TOT PROT 5.2 g/dl (6.4-8.2)
[2020-07-13] MEDS ORDERED: LIDOCAINE HCL 1%, 10 MG/ML (20ML VIAL) ONE (09:07)
[2020-07-13 09:09] LABS: ALBUMIN 2.7 g/dl (3.4-5.0)
[2020-07-13] MEDS ORDERED: PROPOFOL 20 ML ONE (09:38)
[2020-07-13] MEDS ORDERED: SUCCINYLCHOLINE CHLORIDE 200 MG/10 ML SYRINGE ONE (09:38)
[2020-07-13] MEDS ORDERED: MIDAZOLAM HCL 2 MG/2 ML SINGLE DOSE VIAL ONE (09:38)
[2020-07-13] MEDS ORDERED: BUPIVACAINE HCL/PF 0.5% (5 MG/ML) 30 ML VIAL IJ ONE (10:21)
[2020-07-13] MEDS ORDERED: LIDOCAINE HCL 1% PRESERVATIVE FREE - 30ML VIAL IJ ONE (10:21)
[2020-07-13] MEDS ORDERED: LISINOPRIL 20 MG TABLET PO ONE (12:24)
[2020-07-13] MEDS ORDERED: hydrALAZINE HCL 20 MG/ML VIAL ONE (13:34)
[2020-07-13] MEDS ORDERED: PROMETHAZINE HCL 25 MG/1 ML VIAL IVPUSH PRN (13:34)
[2020-07-13] MEDS ORDERED: ONDANSETRON 4 MG/2 ML VIAL IVPUSH PRN (13:34)
[2020-07-13] MEDS: LISINOPRIL 20 MG TABLET PO SCH ×2 (14:04→21:09)
[2020-07-13] MEDS: TAMSULOSIN HCL 0.4 MG CAP PO SCH (14:04)
[2020-07-13] MEDS: ASPIRIN 81 MG CHEWABLE TABLETS PO SCH (14:04)
[2020-07-13] MEDS: DORZOLAMIDE 2% HCL OPHTHALMIC SOLUTION 10 ML BOTTLE OU SCH ×2 (14:05→21:09)
[2020-07-13] MEDS: TIMOLOL 0.5% OPHTHALMIC SOL 5 ML BOTTLE OU SCH ×2 (14:05→21:13)
[2020-07-13] MEDS ORDERED: hydrALAZINE HCL 20 MG/ML VIAL IVPUSH ONE (14:17)
[2020-07-13] MEDS: SODIUM CHLORIDE 1,000 ML IV SCH (14:30)
[2020-07-13] MEDS ORDERED: PT OWN MED DRAWER 7, Y5N ONE (17:38)
[2020-07-13] MEDS: BACITRACIN 15 GM TUBE TOPICAL OINTMENT TP SCH (21:10)
[2020-07-13] MEDS ORDERED: ATORVASTATIN CA 20 MG TABLET (FP) PO SCH (22:00)
[2020-07-13] MEDS ORDERED: ACETAMINOPHEN 325 MG TABLET (FP) PO ONE (22:56)
[2020-07-14] MEDS: SODIUM CHLORIDE 1,000 ML IV SCH (04:05)
[2020-07-14] MEDS: INSULIN SLIDING SCALE (NOVOLOG) 1 VIAL SQ SCH ×2 (06:29→11:54)
[2020-07-14] MEDS ORDERED: ACETAMINOPHEN 325 MG TABLET (FP) PO PRN (07:35)
[2020-07-14 07:40] LABS: BASO % 0.1 % (0-2.0); HEMATOCRIT 37.5 % (35.4-49); HEMOGLOBIN 12.8 GM/dL (11.7-16.9); LYMPH % 10.1 % (8-40); MCH 32.7 pg (25.7-33.7); MCHC 34.1 g/dl (32.0-35.9); MEAN CELL VOLUME 95.8 fl (80-96); MEAN PLT VOLUME 8.7 fl (7.5-11.1); MONO % 11.4 % (3.8-10.2); NEUT % 78.4 % (42.8-82.8); PLATELET COUNT 126 K/MM3 (134-434); RBC 3.92 M/mm3 (4.00-5.60); RDW 14.9 % (11.9-15.9); WHITE BLOOD COUNT 9.3 K/mm3 (4.0-10.0)
[2020-07-14 07:55] LABS: POTASSIUM 4.8 mmol/L (3.5-5.1)
[2020-07-14 08:00] LABS: ALBUMIN 2.8 g/dl (3.4-5.0); CALCIUM 8.5 mg/dL (8.5-10.1)
[2020-07-14 08:01] LABS: BLOOD UREA NITROGEN 20.4 mg/dL (7-18); MAGNESIUM 2.1 mg/dL (1.8-2.4)
[2020-07-14 08:03] LABS: PHOSPHOROUS 3.3 mg/dL (2.5-4.9)
[2020-07-14 08:04] LABS: CREATININE 0.6 mg/dL (0.55-1.3)
[2020-07-14 08:05] LABS: BILIRUBIN,TOTAL 0.7 mg/dL (0.2-1); TOT PROT 5.5 g/dl (6.4-8.2)
[2020-07-14] MEDS ORDERED: TAMSULOSIN HCL 0.4 MG CAP PO SCH (08:30)
[2020-07-14] MEDS ORDERED: metoPROLOL SUCCINATE 25 MG TAB.SR.24H (FP) PO SCH ×2 (10:00→13:15)
[2020-07-14] MEDS ORDERED: ASPIRIN 81 MG CHEWABLE TABLETS PO SCH (10:00)
[2020-07-14] MEDS: LISINOPRIL 20 MG TABLET PO SCH (10:30)
[2020-07-14] MEDS: BACITRACIN 15 GM TUBE TOPICAL OINTMENT TP SCH (10:30)
[2020-07-14] MEDS: TIMOLOL 0.5% OPHTHALMIC SOL 5 ML BOTTLE OU SCH (10:30)
[2020-07-14] MEDS: DORZOLAMIDE 2% HCL OPHTHALMIC SOLUTION 10 ML BOTTLE OU SCH (10:30)
[2020-07-14 14:44] VITALS: BP 158/82; PULSE 74; TEMP 98.5
== END 2020-07-14 16:27 | disposition home health service (06) | DRG 244 ==
LOC: JER 16:33 → JERBED 21:02 → J4W 07-08 17:36
PROVIDERS: ADMIT Hospitalist; ATTEND Internal Medicine
PROC: 02H63JZ Insertion of Pacemaker Lead into Right Atrium, Percutaneous Approach (ICD-10-PCS; 2020-07-13)
PROC: 02HK3JZ Insertion of Pacemaker Lead into Right Ventricle, Percutaneous Approach (ICD-10-PCS; 2020-07-13)
PROC: 0JH606Z Insertion of Pacemaker, Dual Chamber into Chest Subcutaneous Tissue and Fascia, Open Approach (ICD-10-PCS; principal; 2020-07-13 09:30)
DX: I45.3 Trifascicular block (principal); E11.9 Type 2 diabetes mellitus without complications; E78.5 Hyperlipidemia, unspecified; Z79.84 Long term (current) use of oral hypoglycemic drugs; I44.1 Atrioventricular block, second degree; I25.10 Atherosclerotic heart disease of native coronary artery without angina pectoris; Z95.1 Presence of aortocoronary bypass graft; H40.9 Unspecified glaucoma; I10 Essential (primary) hypertension; R29.6 Repeated falls; R00.1 Bradycardia, unspecified
CPT/HCPCS: 36415; 71045-TC-FY; 71046-TC-FY; 76000-TC-FY; 80048; 80053; 82550; 82553; 82962; 83735; 84100; 84443; 84484; 85025; 85027; 85610; 86850; 86900; 86901; 93005; 93010; 94760; 97116-GP; 97161-GP; 99285-25; C9803; U0003

== ENCOUNTER 2020-11-18 11:35 | Emergency (ER) | payer OTHER ==
[2020-11-18 11:53] VITALS: BMI 25.6
[2020-11-18 13:07] LABS: BASO % 0.2 % (0-2.0); HEMATOCRIT 34.8 % (35.4-49); HEMOGLOBIN 11.7 GM/dL (11.7-16.9); LYMPH % 18.7 % (8-40); MCH 29.9 pg (25.7-33.7); MCHC 33.6 g/dl (32.0-35.9); MEAN CELL VOLUME 89.1 fl (80-96); MEAN PLT VOLUME 8.4 fl (7.5-11.1); MONO % 20.8 % (3.8-10.2); NEUT % 59.3 % (42.8-82.8); PLATELET COUNT 141 10^3/uL (134-434); RBC 3.91 M/mm3 (4.00-5.60); RDW 14.9 % (11.9-15.9); WHITE BLOOD COUNT 4.4 K/mm3 (4.0-10.0)
[2020-11-18 13:14] LABS: INR 2.06 (0.83-1.09); PROTHROMBIN TIME (PATIENT) 24.8 SEC (9.7-13.0)
[2020-11-18 13:24] LABS: CALCIUM 8.4 mg/dL (8.5-10.1)
[2020-11-18 13:25] LABS: BLOOD UREA NITROGEN 14.8 mg/dL (7-18)
[2020-11-18 13:28] LABS: CREATININE 0.7 mg/dL (0.55-1.3)
[2020-11-18 13:29] LABS: BILIRUBIN,TOTAL 0.9 mg/dL (0.2-1); TOT PROT 6.2 g/dl (6.4-8.2)
[2020-11-18 13:42] LABS: ANISOCYTOSIS 1+; MACROCYTOSIS 1+; PLATELET ESTIMATE DECREASED
[2020-11-18 14:24] VITALS: BP 147/80; PULSE 57; TEMP 98.6
== END 2020-11-18 14:30 | disposition short-term general hospital (02) ==
LOC: JER 11:35
DX: T81.41XA Infection following a procedure, superficial incisional surgical site, initial encounter (principal)
CPT/HCPCS: 36415; 80053; 85025; 85610; 87040; 87070; 87205; 93005; 93010; 99284-25; C9803; U0003; U0005

== ENCOUNTER 2021-04-09 16:59 | Inpatient (IN) | payer OTHER ==
[2021-04-09 17:13] VITALS: BMI 27.9
[2021-04-09] MEDS ORDERED: FUROSEMIDE 40 MG/4 ML INJECTABLE VIAL IVPUSH ONE (18:21)
[2021-04-09 18:27] LABS: BASO % 0.2 % (0-2.0); EOS % 0.7 % (0-4.5); HEMATOCRIT 31.2 % (35.4-49); HEMOGLOBIN 10.8 GM/dL (11.7-16.9); LYMPH % 19.5 % (8-40); MCH 31.1 pg (25.7-33.7); MCHC 34.7 g/dl (32.0-35.9); MEAN CELL VOLUME 89.7 fl (80-96); MONO % 18.6 % (3.8-10.2); PLATELET COUNT 160 10^3/uL (134-434); RBC 3.47 M/mm3 (4.00-5.60); RDW 14.7 % (11.9-15.9); WHITE BLOOD COUNT 4.5 K/mm3 (4.0-10.0)
[2021-04-09] MEDS ORDERED: FUROSEMIDE 40 MG/4 ML INJECTABLE VIAL ONE (18:29)
[2021-04-09 18:32] LABS: INR 1.3 (0.83-1.09); PROTHROMBIN TIME (PATIENT) 15.3 SEC (9.7-13.0)
[2021-04-09 18:35] LABS: ACTIVATED PTT 21.4 SECONDS (25.2-36.5)
[2021-04-09 19:10] LABS: ALBUMIN 3.2 g/dl (3.4-5.0); BILIRUBIN,TOTAL 0.8 mg/dL (0.2-1); BLOOD UREA NITROGEN 26.1 mg/dL (7-18); CALCIUM 8.6 mg/dL (8.5-10.1); N-TERMINAL BNP 4086.5 pg/ml (5-450); TOT PROT 6.5 g/dl (6.4-8.2)
[2021-04-09 20:09] LABS: EPI CELLS 1 /uL (0-25.1); HYALINE CASTS 1 /uL (0-3.1); PH,URINE 5.5 (5.0-8.0); URINE APPEARANCE CLEAR; URINE BACTERIA 2 /uL (0-1359); URINE BILIRUBIN NEGATIVE (NEGATIVE); URINE COLOR YELLOW; URINE GLUCOSE (UA) NEGATIVE (NEGATIVE); URINE KETONE NEGATIVE (NEGATIVE); URINE LEUK ESTERASE NEGATIVE (NEGATIVE); URINE NITRITE NEGATIVE (NEGATIVE); URINE PROTEIN 1+ (NEGATIVE); URINE RBC 7 /uL (0-23.9); URINE UROBILINOGEN 0.2 mg/dL (0.2-1.0); URINE WBC 2 /uL (0-25.8)
[2021-04-09] MEDS ORDERED: LACTATED RINGERS SOLUTION 1,000 ML/1,000 ML INFUS.BAG IV SCH (22:45)
[2021-04-10 06:28] LABS: ARTERIAL BLD GAS O2 SATURATION 96.9 % (95-98); ARTERIAL BLOOD GAS BASE EXCESS 7.2 mmol/L (-2-2); ARTERIAL BLOOD GAS PO2 85.2 mmHg (80-100); ARTERIAL BLOOD GAS pH 7.472 (7.350-7.450)
[2021-04-10] MEDS: INSULIN SLIDING SCALE (NOVOLOG) 1 VIAL SQ SCH ×3 (08:00→18:27)
[2021-04-10] MEDS ORDERED: amLODIPine BESYLATE 2.5 MG TABLET (FP) ONE (08:59)
[2021-04-10] MEDS ORDERED: DOCUSATE SODIUM 100 MG CAPSULE (FP) PO ONE (09:00)
[2021-04-10] MEDS ORDERED: APIXABAN 5 MG TABLET ONE (09:00)
[2021-04-10] MEDS ORDERED: APIXABAN 5 MG TABLET PO SCH (10:00)
[2021-04-10] MEDS ORDERED: PATIENT'S OWN MEDICATION (NON-FORMULARY) (Dorzolamide/Timolol/Pf [Timolol 0.5%-Dorzolamide OP SCH (10:00)
[2021-04-10] MEDS ORDERED: amLODIPine BESYLATE 5 MG TABLET (FP) PO SCH (10:00)
[2021-04-10] MEDS ORDERED: LISINOPRIL 20 MG TABLET ONE (10:06)
[2021-04-10 10:47] LABS: VENOUS BASE EXCESS 7.8 mmol/L (-2-2); VENOUS O2 SATURATION 58.9 % (70-80); VENOUS PCO2 49.9 mmHg (38-52); VENOUS PH 7.441 (7.310-7.410)
[2021-04-10 11:50] LABS: HEMATOCRIT 31.5 % (35.4-49); MCH 31.5 pg (25.7-33.7); MCHC 34.8 g/dl (32.0-35.9); MEAN CELL VOLUME 90.5 fl (80-96); MEAN PLT VOLUME 8.3 fl (7.5-11.1); PLATELET COUNT 145 10^3/uL (134-434); RBC 3.48 M/mm3 (4.00-5.60); RDW 14.6 % (11.9-15.9); WHITE BLOOD COUNT 4.8 K/mm3 (4.0-10.0)
[2021-04-10 12:24] LABS: ALBUMIN 3.1 g/dl (3.4-5.0); CALCIUM 8.5 mg/dL (8.5-10.1)
[2021-04-10 12:25] LABS: BLOOD UREA NITROGEN 20.2 mg/dL (7-18); MAGNESIUM 2.1 mg/dL (1.8-2.4)
[2021-04-10 12:27] LABS: PHOSPHOROUS 2.3 mg/dL (2.5-4.9)
[2021-04-10 12:28] LABS: CREATININE 0.7 mg/dL (0.55-1.3)
[2021-04-10 12:29] LABS: BILIRUBIN,TOTAL 0.8 mg/dL (0.2-1); TOT PROT 6.3 g/dl (6.4-8.2)
[2021-04-10] MEDS: LISINOPRIL 20 MG TABLET PO SCH (14:00)
[2021-04-10] MEDS: amLODIPine BESYLATE 2.5 MG TABLET (FP) PO SCH (14:00)
[2021-04-10] MEDS: DOCUSATE SODIUM 100 MG CAPSULE (FP) PO SCH (14:00)
[2021-04-10] MEDS: APIXABAN 5 MG TABLET PO SCH ×3 (14:00→21:26)
[2021-04-10] MEDS: metoPROLOL SUCCINATE 25 MG TAB.SR.24H (FP) PO SCH ×3 (14:00→21:28)
[2021-04-10] MEDS: TIMOLOL 0.5% OPHTHALMIC SOL 5 ML BOTTLE OU SCH ×2 (14:25→22:34)
[2021-04-10] MEDS: DORZOLAMIDE 2% HCL OPHTHALMIC SOLUTION 10 ML BOTTLE OU SCH ×2 (14:27→22:34)
[2021-04-10] MEDS ORDERED: LACTATED RINGERS SOLUTION 1,000 ML/1,000 ML INFUS.BAG IV SCH (16:36)
[2021-04-10] MEDS: ATORVASTATIN CA 10 MG TABLET (FP) PO SCH ×2 (21:22→21:27)
[2021-04-11] MEDS ORDERED: HALOPERIDOL LACTATE 5 MG/ML IV ONE (00:36)
[2021-04-11] MEDS ORDERED: HALOPERIDOL LACTATE 5 MG/ML IM ONE (00:47)
[2021-04-11] MEDS: INSULIN SLIDING SCALE (NOVOLOG) 1 VIAL SQ SCH ×3 (06:45→16:58)
[2021-04-11] MEDS: LISINOPRIL 20 MG TABLET PO SCH (09:50)
[2021-04-11] MEDS: APIXABAN 5 MG TABLET PO SCH (09:50)
[2021-04-11] MEDS: metoPROLOL SUCCINATE 25 MG TAB.SR.24H (FP) PO SCH ×2 (09:50→21:28)
[2021-04-11] MEDS: amLODIPine BESYLATE 2.5 MG TABLET (FP) PO SCH (09:50)
[2021-04-11] MEDS: DOCUSATE SODIUM 100 MG CAPSULE (FP) PO SCH (09:50)
[2021-04-11 10:10] LABS: HEMATOCRIT 31.1 % (35.4-49); HEMOGLOBIN 10.7 GM/dL (11.7-16.9); MCH 31.2 pg (25.7-33.7); MCHC 34.4 g/dl (32.0-35.9); MEAN CELL VOLUME 90.8 fl (80-96); MEAN PLT VOLUME 8.2 fl (7.5-11.1); PLATELET COUNT 171 10^3/uL (134-434); RBC 3.42 M/mm3 (4.00-5.60); RDW 14.6 % (11.9-15.9); WHITE BLOOD COUNT 4.4 K/mm3 (4.0-10.0)
[2021-04-11 11:13] LABS: CALCIUM 8.5 mg/dL (8.5-10.1)
[2021-04-11 11:14] LABS: BLOOD UREA NITROGEN 14.4 mg/dL (7-18); MAGNESIUM 2.1 mg/dL (1.8-2.4)
[2021-04-11 11:16] LABS: URIC ACID 3.5 mg/dL (2.6-7.2)
[2021-04-11 11:17] LABS: CREATININE 0.6 mg/dL (0.55-1.3)
[2021-04-11] MEDS: TIMOLOL 0.5% OPHTHALMIC SOL 5 ML BOTTLE OU SCH ×2 (12:50→21:32)
[2021-04-11] MEDS: DORZOLAMIDE 2% HCL OPHTHALMIC SOLUTION 10 ML BOTTLE OU SCH ×2 (12:50→21:32)
[2021-04-11] MEDS: ATORVASTATIN CA 10 MG TABLET (FP) PO SCH (21:28)
[2021-04-12] MEDS ORDERED: HALOPERIDOL LACTATE 5 MG/ML IM ONE (01:57)
[2021-04-12] MEDS: INSULIN SLIDING SCALE (NOVOLOG) 1 VIAL SQ SCH ×3 (06:23→16:56)
[2021-04-12 08:33] LABS: CALCIUM 8.7 mg/dL (8.5-10.1)
[2021-04-12 08:34] LABS: BLOOD UREA NITROGEN 15.2 mg/dL (7-18); MAGNESIUM 1.9 mg/dL (1.8-2.4)
[2021-04-12 08:37] LABS: CREATININE 0.6 mg/dL (0.55-1.3); PHOSPHOROUS 2.7 mg/dL (2.5-4.9)
[2021-04-12] MEDS: ASPIRIN COATED 81 MG TABLET.EC PO SCH (10:10)
[2021-04-12] MEDS: DOCUSATE SODIUM 100 MG CAPSULE (FP) PO SCH (10:10)
[2021-04-12] MEDS: amLODIPine BESYLATE 2.5 MG TABLET (FP) PO SCH (10:10)
[2021-04-12] MEDS: metoPROLOL SUCCINATE 25 MG TAB.SR.24H (FP) PO SCH ×2 (10:11→21:38)
[2021-04-12] MEDS: LISINOPRIL 20 MG TABLET PO SCH (10:11)
[2021-04-12] MEDS: DORZOLAMIDE 2% HCL OPHTHALMIC SOLUTION 10 ML BOTTLE OU SCH ×2 (10:17→21:42)
[2021-04-12] MEDS: TIMOLOL 0.5% OPHTHALMIC SOL 5 ML BOTTLE OU SCH ×2 (10:21→21:42)
[2021-04-12] MEDS: AMINO ACIDS/PROTEIN HYDROLYS 30 ML LIQUID.PKT PO SCH (17:58)
[2021-04-12] MEDS: ASCORBIC ACID 500 MG TABLET (FP) PO SCH (21:38)
[2021-04-12] MEDS: ATORVASTATIN CA 10 MG TABLET (FP) PO SCH (21:38)
[2021-04-13] MEDS: INSULIN SLIDING SCALE (NOVOLOG) 1 VIAL SQ SCH ×3 (06:23→17:08)
[2021-04-13 08:45] LABS: BASO % 0.4 % (0-2.0); EOS % 1.3 % (0-4.5); HEMATOCRIT 34.5 % (35.4-49); HEMOGLOBIN 11.8 GM/dL (11.7-16.9); LYMPH % 26.8 % (8-40); MCH 31.2 pg (25.7-33.7); MCHC 34.3 g/dl (32.0-35.9); MEAN CELL VOLUME 90.8 fl (80-96); MEAN PLT VOLUME 8.2 fl (7.5-11.1); MONO % 15.2 % (3.8-10.2); NEUT % 56.3 % (42.8-82.8); PLATELET COUNT 202 10^3/uL (134-434); RBC 3.79 M/mm3 (4.00-5.60); RDW 14.5 % (11.9-15.9); WHITE BLOOD COUNT 5.1 K/mm3 (4.0-10.0)
[2021-04-13 09:10] LABS: CALCIUM 8.6 mg/dL (8.5-10.1)
[2021-04-13 09:11] LABS: BLOOD UREA NITROGEN 26.1 mg/dL (7-18); MAGNESIUM 2.1 mg/dL (1.8-2.4)
[2021-04-13 09:14] LABS: CREATININE 0.7 mg/dL (0.55-1.3); PHOSPHOROUS 4.2 mg/dL (2.5-4.9)
[2021-04-13] MEDS: AMINO ACIDS/PROTEIN HYDROLYS 30 ML LIQUID.PKT PO SCH ×2 (09:59→17:08)
[2021-04-13] MEDS: ASCORBIC ACID 500 MG TABLET (FP) PO SCH ×2 (10:00→22:25)
[2021-04-13] MEDS: LISINOPRIL 20 MG TABLET PO SCH (10:00)
[2021-04-13] MEDS: DOCUSATE SODIUM 100 MG CAPSULE (FP) PO SCH (10:00)
[2021-04-13] MEDS: amLODIPine BESYLATE 2.5 MG TABLET (FP) PO SCH (10:00)
[2021-04-13] MEDS: ASPIRIN COATED 81 MG TABLET.EC PO SCH (10:00)
[2021-04-13] MEDS: MULTIVITAMINS THER W-MINERALS COMBO TABLET (FP) PO SCH (10:00)
[2021-04-13] MEDS: metoPROLOL SUCCINATE 25 MG TAB.SR.24H (FP) PO SCH ×2 (10:00→22:25)
[2021-04-13] MEDS: DORZOLAMIDE 2% HCL OPHTHALMIC SOLUTION 10 ML BOTTLE OU SCH ×2 (10:01→22:26)
[2021-04-13] MEDS: TIMOLOL 0.5% OPHTHALMIC SOL 5 ML BOTTLE OU SCH ×2 (10:01→22:26)
[2021-04-13] MEDS: QUEtiapine FUMARATE 25 MG TABLET PO SCH (18:50)
[2021-04-13] MEDS ORDERED: MELATONIN 5 MG TABLETS PO PRN (19:00)
[2021-04-13] MEDS: FERROUS SO4 325 MG TABLET (FP) PO SCH (22:25)
[2021-04-13] MEDS: ATORVASTATIN CA 10 MG TABLET (FP) PO SCH (22:25)
[2021-04-14] MEDS: INSULIN SLIDING SCALE (NOVOLOG) 1 VIAL SQ SCH ×3 (06:00→17:02)
[2021-04-14 08:37] LABS: BLOOD UREA NITROGEN 31.5 mg/dL (7-18); CALCIUM 8.8 mg/dL (8.5-10.1); MAGNESIUM 2.3 mg/dL (1.8-2.4)
[2021-04-14 08:40] LABS: CREATININE 0.8 mg/dL (0.55-1.3); PHOSPHOROUS 3.7 mg/dL (2.5-4.9)
[2021-04-14] MEDS: ASCORBIC ACID 500 MG TABLET (FP) PO SCH ×2 (10:35→21:14)
[2021-04-14] MEDS: MULTIVITAMINS THER W-MINERALS COMBO TABLET (FP) PO SCH (10:35)
[2021-04-14] MEDS: QUEtiapine FUMARATE 25 MG TABLET PO SCH (10:35)
[2021-04-14] MEDS: LISINOPRIL 20 MG TABLET PO SCH (10:36)
[2021-04-14] MEDS: ENOXAPARIN NA (PORCINE) 40 MG/0.4 ML DISP.SYRIN SQ SCH (10:36)
[2021-04-14] MEDS: amLODIPine BESYLATE 2.5 MG TABLET (FP) PO SCH (10:36)
[2021-04-14] MEDS: ASPIRIN COATED 81 MG TABLET.EC PO SCH (10:36)
[2021-04-14] MEDS: metoPROLOL SUCCINATE 25 MG TAB.SR.24H (FP) PO SCH ×2 (10:36→21:14)
[2021-04-14] MEDS: FERROUS SO4 325 MG TABLET (FP) PO SCH ×2 (10:36→21:14)
[2021-04-14] MEDS: DOCUSATE SODIUM 100 MG CAPSULE (FP) PO SCH (10:36)
[2021-04-14] MEDS: TIMOLOL 0.5% OPHTHALMIC SOL 5 ML BOTTLE OU SCH ×2 (10:37→21:13)
[2021-04-14] MEDS: AMINO ACIDS/PROTEIN HYDROLYS 30 ML LIQUID.PKT PO SCH ×2 (10:37→18:19)
[2021-04-14] MEDS: DORZOLAMIDE 2% HCL OPHTHALMIC SOLUTION 10 ML BOTTLE OU SCH ×2 (10:37→21:13)
[2021-04-14] MEDS: ATORVASTATIN CA 10 MG TABLET (FP) PO SCH (21:14)
[2021-04-15] MEDS: INSULIN SLIDING SCALE (NOVOLOG) 1 VIAL SQ SCH ×3 (06:17→17:06)
[2021-04-15] MEDS: MULTIVITAMINS THER W-MINERALS COMBO TABLET (FP) PO SCH (10:23)
[2021-04-15] MEDS: AMINO ACIDS/PROTEIN HYDROLYS 30 ML LIQUID.PKT PO SCH ×2 (10:23→16:53)
[2021-04-15] MEDS: metoPROLOL SUCCINATE 25 MG TAB.SR.24H (FP) PO SCH ×2 (10:23→21:19)
[2021-04-15] MEDS: TAMSULOSIN HCL 0.4 MG CAP PO SCH (10:23)
[2021-04-15] MEDS: DOCUSATE SODIUM 100 MG CAPSULE (FP) PO SCH (10:23)
[2021-04-15] MEDS: ASPIRIN COATED 81 MG TABLET.EC PO SCH (10:23)
[2021-04-15] MEDS: QUEtiapine FUMARATE 25 MG TABLET PO SCH (10:23)
[2021-04-15] MEDS: ASCORBIC ACID 500 MG TABLET (FP) PO SCH ×2 (10:24→21:19)
[2021-04-15] MEDS: amLODIPine BESYLATE 2.5 MG TABLET (FP) PO SCH (10:24)
[2021-04-15] MEDS: FERROUS SO4 325 MG TABLET (FP) PO SCH ×2 (10:24→21:19)
[2021-04-15] MEDS: ENOXAPARIN NA (PORCINE) 40 MG/0.4 ML DISP.SYRIN SQ SCH (10:24)
[2021-04-15] MEDS: DORZOLAMIDE 2% HCL OPHTHALMIC SOLUTION 10 ML BOTTLE OU SCH ×2 (10:24→21:21)
[2021-04-15] MEDS: TIMOLOL 0.5% OPHTHALMIC SOL 5 ML BOTTLE OU SCH ×2 (10:24→21:21)
[2021-04-15] MEDS: LISINOPRIL 20 MG TABLET PO SCH (10:24)
[2021-04-15] MEDS ORDERED: ACETAMINOPHEN 325 MG TABLET (FP) PO PRN (11:23)
[2021-04-15] MEDS: POLYETHYLENE GLYCOL (HEALTHYLAX) 3350 17 GM PACKET PO SCH ×2 (11:35→21:19)
[2021-04-15] MEDS: ATORVASTATIN CA 10 MG TABLET (FP) PO SCH (21:19)
[2021-04-16] MEDS: INSULIN SLIDING SCALE (NOVOLOG) 1 VIAL SQ SCH ×3 (07:33→17:00)
[2021-04-16 08:06] LABS: BLOOD UREA NITROGEN 27.4 mg/dL (7-18); CALCIUM 8.5 mg/dL (8.5-10.1)
[2021-04-16 08:10] LABS: CREATININE 0.7 mg/dL (0.55-1.3)
[2021-04-16] MEDS: AMINO ACIDS/PROTEIN HYDROLYS 30 ML LIQUID.PKT PO SCH ×2 (09:21→17:01)
[2021-04-16] MEDS: QUEtiapine FUMARATE 25 MG TABLET PO SCH (09:21)
[2021-04-16] MEDS: LISINOPRIL 20 MG TABLET PO SCH (09:21)
[2021-04-16] MEDS: metoPROLOL SUCCINATE 25 MG TAB.SR.24H (FP) PO SCH ×2 (09:21→23:13)
[2021-04-16] MEDS: MULTIVITAMINS THER W-MINERALS COMBO TABLET (FP) PO SCH (09:21)
[2021-04-16] MEDS: POLYETHYLENE GLYCOL (HEALTHYLAX) 3350 17 GM PACKET PO SCH ×2 (09:21→23:12)
[2021-04-16] MEDS: ASPIRIN COATED 81 MG TABLET.EC PO SCH (09:21)
[2021-04-16] MEDS: ENOXAPARIN NA (PORCINE) 40 MG/0.4 ML DISP.SYRIN SQ SCH (09:22)
[2021-04-16] MEDS: ASCORBIC ACID 500 MG TABLET (FP) PO SCH ×2 (09:22→23:12)
[2021-04-16] MEDS: FERROUS SO4 325 MG TABLET (FP) PO SCH ×2 (09:22→23:12)
[2021-04-16] MEDS: amLODIPine BESYLATE 2.5 MG TABLET (FP) PO SCH (09:22)
[2021-04-16] MEDS: DOCUSATE SODIUM 100 MG CAPSULE (FP) PO SCH (09:23)
[2021-04-16] MEDS: TIMOLOL 0.5% OPHTHALMIC SOL 5 ML BOTTLE OU SCH ×2 (09:27→23:12)
[2021-04-16] MEDS: DORZOLAMIDE 2% HCL OPHTHALMIC SOLUTION 10 ML BOTTLE OU SCH ×2 (09:28→23:13)
[2021-04-16] MEDS ORDERED: ASPIRIN 81 MG CHEWABLE TABLETS PO SCH ×2 (10:15)
[2021-04-16] MEDS: TAMSULOSIN HCL 0.4 MG CAP PO SCH (10:55)
[2021-04-16] MEDS: ATORVASTATIN CA 10 MG TABLET (FP) PO SCH (23:12)
[2021-04-17] MEDS ORDERED: MELATONIN 5 MG TABLETS PO PRN (03:07)
[2021-04-17] MEDS ORDERED: ACETAMINOPHEN 325 MG TABLET (FP) PO PRN (03:07)
[2021-04-17] MEDS: INSULIN SLIDING SCALE (NOVOLOG) 1 VIAL SQ SCH ×3 (06:55→16:30)
[2021-04-17 08:24] LABS: BASO % 0.3 % (0-2.0); EOS % 1.6 % (0-4.5); HEMATOCRIT 33.9 % (35.4-49); HEMOGLOBIN 11.5 GM/dL (11.7-16.9); LYMPH % 30.6 % (8-40); MCH 31.1 pg (25.7-33.7); MEAN CELL VOLUME 91.7 fl (80-96); MEAN PLT VOLUME 7.6 fl (7.5-11.1); MONO % 17.5 % (3.8-10.2); PLATELET COUNT 209 10^3/uL (134-434); RDW 15.1 % (11.9-15.9); WHITE BLOOD COUNT 4.7 K/mm3 (4.0-10.0)
[2021-04-17 08:52] LABS: BLOOD UREA NITROGEN 20.5 mg/dL (7-18)
[2021-04-17 08:54] LABS: CREATININE 0.7 mg/dL (0.55-1.3)
[2021-04-17 09:00] LABS: CALCIUM 8.1 mg/dL (8.5-10.1)
[2021-04-17] MEDS: ENOXAPARIN NA (PORCINE) 40 MG/0.4 ML DISP.SYRIN SQ SCH (10:19)
[2021-04-17] MEDS: AMINO ACIDS/PROTEIN HYDROLYS 30 ML LIQUID.PKT PO SCH ×2 (10:19→16:30)
[2021-04-17] MEDS: POLYETHYLENE GLYCOL (HEALTHYLAX) 3350 17 GM PACKET PO SCH ×2 (10:19→21:25)
[2021-04-17] MEDS: ASCORBIC ACID 500 MG TABLET (FP) PO SCH ×2 (10:23→21:25)
[2021-04-17] MEDS: FERROUS SO4 325 MG TABLET (FP) PO SCH ×2 (10:23→21:24)
[2021-04-17] MEDS: metoPROLOL SUCCINATE 25 MG TAB.SR.24H (FP) PO SCH ×2 (10:23→21:24)
[2021-04-17] MEDS: LISINOPRIL 20 MG TABLET PO SCH (10:23)
[2021-04-17] MEDS: amLODIPine BESYLATE 2.5 MG TABLET (FP) PO SCH (10:23)
[2021-04-17] MEDS: TAMSULOSIN HCL 0.4 MG CAP PO SCH (10:23)
[2021-04-17] MEDS: ASPIRIN 81 MG CHEWABLE TABLETS PO SCH (10:23)
[2021-04-17] MEDS: QUEtiapine FUMARATE 25 MG TABLET PO SCH (10:24)
[2021-04-17] MEDS: DOCUSATE SODIUM 100 MG CAPSULE (FP) PO SCH (10:24)
[2021-04-17] MEDS: MULTIVITAMINS THER W-MINERALS COMBO TABLET (FP) PO SCH (10:24)
[2021-04-17] MEDS: DORZOLAMIDE 2% HCL OPHTHALMIC SOLUTION 10 ML BOTTLE OU SCH ×2 (10:25→21:32)
[2021-04-17] MEDS: TIMOLOL 0.5% OPHTHALMIC SOL 5 ML BOTTLE OU SCH ×2 (10:25→21:32)
[2021-04-17] MEDS ORDERED: ATORVASTATIN CA 10 MG TABLET (FP) PO SCH (22:00)
[2021-04-18] MEDS: INSULIN SLIDING SCALE (NOVOLOG) 1 VIAL SQ SCH ×3 (06:33→16:59)
[2021-04-18] MEDS: ENOXAPARIN NA (PORCINE) 40 MG/0.4 ML DISP.SYRIN SQ SCH (09:29)
[2021-04-18] MEDS: POLYETHYLENE GLYCOL (HEALTHYLAX) 3350 17 GM PACKET PO SCH (09:30)
[2021-04-18] MEDS: ASPIRIN 81 MG CHEWABLE TABLETS PO SCH (09:31)
[2021-04-18] MEDS: AMINO ACIDS/PROTEIN HYDROLYS 30 ML LIQUID.PKT PO SCH ×2 (09:31→16:59)
[2021-04-18] MEDS: TAMSULOSIN HCL 0.4 MG CAP PO SCH (09:31)
[2021-04-18] MEDS: QUEtiapine FUMARATE 25 MG TABLET PO SCH (09:32)
[2021-04-18] MEDS: LISINOPRIL 20 MG TABLET PO SCH (09:32)
[2021-04-18] MEDS: FERROUS SO4 325 MG TABLET (FP) PO SCH (09:32)
[2021-04-18] MEDS: DOCUSATE SODIUM 100 MG CAPSULE (FP) PO SCH (09:33)
[2021-04-18] MEDS: metoPROLOL SUCCINATE 25 MG TAB.SR.24H (FP) PO SCH (09:33)
[2021-04-18] MEDS: ASCORBIC ACID 500 MG TABLET (FP) PO SCH (09:33)
[2021-04-18] MEDS: MULTIVITAMINS THER W-MINERALS COMBO TABLET (FP) PO SCH (09:33)
[2021-04-18] MEDS: amLODIPine BESYLATE 2.5 MG TABLET (FP) PO SCH (09:33)
[2021-04-18] MEDS: TIMOLOL 0.5% OPHTHALMIC SOL 5 ML BOTTLE OU SCH (09:35)
[2021-04-18] MEDS: DORZOLAMIDE 2% HCL OPHTHALMIC SOLUTION 10 ML BOTTLE OU SCH (09:36)
[2021-04-18] MEDS ORDERED: ZINC SULFATE 220 MG CAPSULE (FP) PO SCH (10:00)
[2021-04-18 15:39] VITALS: BP 123/65; PULSE 65
[2021-04-18 18:29] VITALS: TEMP 98.8
== END 2021-04-18 18:32 | DRG 558 ==
LOC: JER 16:59 → JERBED 20:05 → J4S 04-10 20:46 → J7W 04-17 02:14
PROVIDERS: ATTEND Internal Medicine
DX: M62.82 Rhabdomyolysis (principal); E87.1 Hypo-osmolality and hyponatremia; M48.54XA Collapsed vertebra, not elsewhere classified, thoracic region, initial encounter for fracture; I24.8 Other forms of acute ischemic heart disease; F05 Delirium due to known physiological condition; I50.32 Chronic diastolic (congestive) heart failure; I25.10 Atherosclerotic heart disease of native coronary artery without angina pectoris; E78.5 Hyperlipidemia, unspecified; E11.9 Type 2 diabetes mellitus without complications; I73.9 Peripheral vascular disease, unspecified; Z95.1 Presence of aortocoronary bypass graft; Z79.84 Long term (current) use of oral hypoglycemic drugs; R29.6 Repeated falls; H40.9 Unspecified glaucoma; D64.9 Anemia, unspecified; I48.0 Paroxysmal atrial fibrillation; I11.0 Hypertensive heart disease with heart failure; Z95.0 Presence of cardiac pacemaker; R27.0 Ataxia, unspecified; R94.31 Abnormal electrocardiogram [ECG] [EKG]; R33.9 Retention of urine, unspecified
CPT/HCPCS: 36415; 36600; 70450-TC; 71045-TC-FY; 72125-TC; 72131-TC; 73090-TC-LT-FY; 73090-TC-RT-FY; 80048; 80053; 80061; 81003; 82436; 82533; 82550; 82553; 82607; 82652; 82728; 82803; 82962; 83036; 83540; 83550; 83735; 83880; 83930; 83935; 84100; 84133; 84300; 84443; 84484; 84550; 85025; 85027; 85045; 85610; 85730; 86780; 87086; 93005; 93010; 93880-TC; 97116-GP; 97161-GP; 99285-25; C9803; U0003; U0005

== ENCOUNTER 2021-05-21 10:29 | Inpatient (IN) | payer OTHER ==
[2021-05-21 11:44] LABS: VENOUS BASE EXCESS 2.8 mmol/L (-2-2); VENOUS O2 SATURATION 38.9 % (70-80); VENOUS PCO2 46.9 mmHg (38-52); VENOUS PH 7.397 (7.310-7.410)
[2021-05-21 11:45] LABS: BASO % 0.3 % (0-2.0); HEMATOCRIT 33.1 % (35.4-49); HEMOGLOBIN 10.6 GM/dL (11.7-16.9); LYMPH % 4.1 % (8-40); MCH 28.3 pg (25.7-33.7); MCHC 32.1 g/dl (32.0-35.9); MEAN CELL VOLUME 88.3 fl (80-96); MEAN PLT VOLUME 8.7 fl (7.5-11.1); MONO % 8.8 % (3.8-10.2); NEUT % 86.8 % (42.8-82.8); PLATELET COUNT 373 10^3/uL (134-434); RBC 3.74 M/mm3 (4.00-5.60); RDW 15.8 % (11.9-15.9)
[2021-05-21 11:52] LABS: INR 1.43 (0.83-1.09); PROTHROMBIN TIME (PATIENT) 16.5 SEC (9.7-13.0)
[2021-05-21 12:28] LABS: LACTIC ACID 2.5 mmol/L (0.4-2.0)
[2021-05-21 14:48] LABS: CALCIUM 9.2 mg/dL (8.5-10.1)
[2021-05-21 14:49] LABS: BLOOD UREA NITROGEN 15.1 mg/dL (7-18); MAGNESIUM 2.2 mg/dL (1.8-2.4)
[2021-05-21 14:52] LABS: CREATININE 0.7 mg/dL (0.55-1.3)
[2021-05-21 14:53] LABS: BILIRUBIN,TOTAL 1.2 mg/dL (0.2-1); TOT PROT 7.4 g/dl (6.4-8.2)
[2021-05-21 14:57] LABS: N-TERMINAL BNP 3316.6 pg/ml (5-450)
[2021-05-21] MEDS ORDERED: SODIUM CHLORIDE 1,000 ML IV STA (15:07)
[2021-05-21] MEDS: INSULIN SLIDING SCALE (NOVOLOG) 1 VIAL SQ SCH ×2 (21:14→23:26)
[2021-05-21] MEDS ORDERED: HEPARIN NA (PORCINE) 5,000 UNITS/ML 1ML VIAL SQ SCH (22:00)
[2021-05-21 22:38] LABS: EPI CELLS 1 /uL (0-25.1); HYALINE CASTS 0 /uL (0-3.1); URINE APPEARANCE CLOUDY; URINE BACTERIA >9,000 /uL (0-1359); URINE BILIRUBIN NEGATIVE (NEGATIVE); URINE COLOR YELLOW; URINE GLUCOSE (UA) NEGATIVE (NEGATIVE); URINE KETONE NEGATIVE (NEGATIVE); URINE LEUK ESTERASE 2+ (NEGATIVE); URINE NITRITE NEGATIVE (NEGATIVE); URINE PROTEIN 2+ (NEGATIVE); URINE RBC 38 /uL (0-23.9); URINE WBC 1150 /uL (0-25.8)
[2021-05-22 00:11] LABS: COCAINE, UR NEGATIVE (NEGATIVE); METHADONE, UR NEGATIVE (NEGATIVE); OPIATES, URI NEGATIVE (NEGATIVE); PHENCYCLIDINE,URINE NEGATIVE (NEGATIVE); URINE AMPHETAMINES NEGATIVE (NEGATIVE); URINE BARBITURATES NEGATIVE (NEGATIVE); URINE BENZODIAZEPINES NEGATIVE (NEGATIVE)
[2021-05-22] MEDS: INSULIN SLIDING SCALE (NOVOLOG) 1 VIAL SQ SCH ×4 (06:23→21:28)
[2021-05-22] MEDS ORDERED: PIPERACILLIN/TAZOB 3.375 GM 3.375 GM in DEXTROSE 5%-WATER - 50 ML IVPB ONE (09:29)
[2021-05-22] MEDS ORDERED: APIXABAN 5 MG TABLET PO SCH (10:00)
[2021-05-22] MEDS ORDERED: PATIENT'S OWN MEDICATION (NON-FORMULARY) (Dorzolamide/Timolol/Pf [Timolol 0.5%-Dorzolamide OP SCH (10:00)
[2021-05-22] MEDS ORDERED: PIPERACILLIN/TAZOBACTAM 3.375 GM VIAL IVPB ONE ×2 (10:54→17:44)
[2021-05-22] MEDS ORDERED: DEXTROSE 5%-WATER - 50 ML IVPB ONE ×2 (10:55→17:45)
[2021-05-22] MEDS: amLODIPine BESYLATE 5 MG TABLET (FP) PO SCH (11:29)
[2021-05-22] MEDS: metoPROLOL SUCCINATE 25 MG TAB.SR.24H (FP) PO SCH (11:30)
[2021-05-22] MEDS: ATORVASTATIN CA 10 MG TABLET (FP) PO SCH (11:30)
[2021-05-22] MEDS: LISINOPRIL 20 MG TABLET PO SCH (11:30)
[2021-05-22] MEDS: ASPIRIN 81 MG CHEWABLE TABLETS PO SCH (11:30)
[2021-05-22 14:28] LABS: BASO % 0.2 % (0-2.0); EOS % 0.1 % (0-4.5); HEMATOCRIT 28.9 % (35.4-49); HEMOGLOBIN 9.7 GM/dL (11.7-16.9); LYMPH % 9.6 % (8-40); MCH 29.2 pg (25.7-33.7); MCHC 33.4 g/dl (32.0-35.9); MEAN CELL VOLUME 87.3 fl (80-96); MEAN PLT VOLUME 8.1 fl (7.5-11.1); MONO % 14.8 % (3.8-10.2); NEUT % 75.3 % (42.8-82.8); PLATELET COUNT 339 10^3/uL (134-434); RBC 3.32 M/mm3 (4.00-5.60); RDW 15.4 % (11.9-15.9); WHITE BLOOD COUNT 10.8 K/mm3 (4.0-10.0)
[2021-05-22 14:44] LABS: ALBUMIN 2.4 g/dl (3.4-5.0); BLOOD UREA NITROGEN 16.4 mg/dL (7-18); CALCIUM 8.6 mg/dL (8.5-10.1)
[2021-05-22 14:47] LABS: CREATININE 0.7 mg/dL (0.55-1.3)
[2021-05-22 14:49] LABS: BILIRUBIN,TOTAL 0.7 mg/dL (0.2-1); TOT PROT 6.2 g/dl (6.4-8.2)
[2021-05-22] MEDS: VANCOMYCIN 1 GRAM (PRE-DOCKED) 1,000 MG/250 ML BAG IVPB SCH (16:10)
[2021-05-22] MEDS: PIPERACILLIN/TAZOB 3.375 GM 3.375 GM in DEXTROSE 5%-WATER - 50 ML IVPB SCH (18:08)
[2021-05-22] MEDS: AMINO ACIDS/PROTEIN HYDROLYS 30 ML LIQUID.PKT PO SCH (18:08)
[2021-05-22 20:29] LABS: MAGNESIUM 2.3 mg/dL (1.8-2.4)
[2021-05-22 20:33] LABS: PHOSPHOROUS 3.1 mg/dL (2.5-4.9)
[2021-05-22] MEDS ORDERED: INSULIN (NOVOLOG) ASPART 100 UNITS/ML 10ML VIAL ONE (21:22)
[2021-05-22] MEDS: QUEtiapine FUMARATE 25 MG TABLET PO SCH (21:26)
[2021-05-23] MEDS ORDERED: PIPERACILLIN/TAZOBACTAM 3.375 GM VIAL IVPB ONE ×3 (01:45→16:59)
[2021-05-23] MEDS ORDERED: DEXTROSE 5%-WATER - 50 ML IVPB ONE ×3 (01:45→16:59)
[2021-05-23] MEDS: PIPERACILLIN/TAZOB 3.375 GM 3.375 GM in DEXTROSE 5%-WATER - 50 ML IVPB SCH ×3 (01:53→17:42)
[2021-05-23] MEDS: VANCOMYCIN 1 GRAM (PRE-DOCKED) 1,000 MG/250 ML BAG IVPB SCH ×2 (02:35→13:54)
[2021-05-23] MEDS: INSULIN SLIDING SCALE (NOVOLOG) 1 VIAL SQ SCH ×4 (06:03→21:56)
[2021-05-23] MEDS: TAMSULOSIN HCL 0.4 MG CAP PO SCH (08:44)
[2021-05-23] MEDS: AMINO ACIDS/PROTEIN HYDROLYS 30 ML LIQUID.PKT PO SCH ×2 (08:45→17:42)
[2021-05-23 09:04] LABS: BASO % 0.2 % (0-2.0); EOS % 0.2 % (0-4.5); HEMATOCRIT 27.6 % (35.4-49); HEMOGLOBIN 9.1 GM/dL (11.7-16.9); MCH 28.8 pg (25.7-33.7); MCHC 33.1 g/dl (32.0-35.9); MEAN CELL VOLUME 86.9 fl (80-96); MEAN PLT VOLUME 8.4 fl (7.5-11.1); NEUT % 64.6 % (42.8-82.8); PLATELET COUNT 342 10^3/uL (134-434); RBC 3.18 M/mm3 (4.00-5.60); RDW 15.7 % (11.9-15.9); WHITE BLOOD COUNT 9.3 K/mm3 (4.0-10.0)
[2021-05-23 09:31] LABS: ALBUMIN 2.3 g/dl (3.4-5.0); CALCIUM 8.6 mg/dL (8.5-10.1)
[2021-05-23 09:32] LABS: BLOOD UREA NITROGEN 14.1 mg/dL (7-18); MAGNESIUM 2.2 mg/dL (1.8-2.4)
[2021-05-23 09:34] LABS: PHOSPHOROUS 3.1 mg/dL (2.5-4.9)
[2021-05-23 09:35] LABS: CREATININE 0.7 mg/dL (0.55-1.3)
[2021-05-23 09:36] LABS: TOT PROT 6.1 g/dl (6.4-8.2)
[2021-05-23] MEDS: metoPROLOL SUCCINATE 25 MG TAB.SR.24H (FP) PO SCH (10:22)
[2021-05-23] MEDS: LISINOPRIL 20 MG TABLET PO SCH (10:22)
[2021-05-23] MEDS: ASPIRIN 81 MG CHEWABLE TABLETS PO SCH (10:22)
[2021-05-23] MEDS: amLODIPine BESYLATE 5 MG TABLET (FP) PO SCH (10:22)
[2021-05-23] MEDS: ATORVASTATIN CA 10 MG TABLET (FP) PO SCH (10:22)
[2021-05-23] MEDS ORDERED: PT OWN MED DRAWER 7, Y5N ONE (18:41)
[2021-05-23] MEDS: QUEtiapine FUMARATE 25 MG TABLET PO SCH (21:56)
[2021-05-24] MEDS ORDERED: DEXTROSE 5%-WATER - 50 ML IVPB ONE ×3 (01:29→16:15)
[2021-05-24] MEDS ORDERED: PIPERACILLIN/TAZOBACTAM 3.375 GM VIAL IVPB ONE ×3 (01:29→16:15)
[2021-05-24] MEDS: PIPERACILLIN/TAZOB 3.375 GM 3.375 GM in DEXTROSE 5%-WATER - 50 ML IVPB SCH ×3 (01:35→17:01)
[2021-05-24] MEDS: VANCOMYCIN 1 GRAM (PRE-DOCKED) 1,000 MG/250 ML BAG IVPB SCH (03:01)
[2021-05-24] MEDS: INSULIN SLIDING SCALE (NOVOLOG) 1 VIAL SQ SCH ×4 (06:12→22:36)
[2021-05-24 08:03] LABS: HEMATOCRIT 27.7 % (35.4-49); HEMOGLOBIN 9.1 GM/dL (11.7-16.9); MCH 28.7 pg (25.7-33.7); MCHC 32.8 g/dl (32.0-35.9); MEAN CELL VOLUME 87.3 fl (80-96); MEAN PLT VOLUME 8.4 fl (7.5-11.1); PLATELET COUNT 340 10^3/uL (134-434); RBC 3.17 M/mm3 (4.00-5.60); RDW 15.3 % (11.9-15.9); WHITE BLOOD COUNT 7.1 K/mm3 (4.0-10.0)
[2021-05-24 08:54] LABS: CALCIUM 8.4 mg/dL (8.5-10.1)
[2021-05-24 08:55] LABS: ALBUMIN 2.4 g/dl (3.4-5.0); BLOOD UREA NITROGEN 16.4 mg/dL (7-18); MAGNESIUM 2.2 mg/dL (1.8-2.4)
[2021-05-24 08:58] LABS: CREATININE 0.8 mg/dL (0.55-1.3); PHOSPHOROUS 3.3 mg/dL (2.5-4.9)
[2021-05-24 08:59] LABS: TOT PROT 6.2 g/dl (6.4-8.2)
[2021-05-24] MEDS: AMINO ACIDS/PROTEIN HYDROLYS 30 ML LIQUID.PKT PO SCH ×2 (11:06→16:58)
[2021-05-24] MEDS: LISINOPRIL 20 MG TABLET PO SCH ×2 (11:07→11:12)
[2021-05-24] MEDS: ATORVASTATIN CA 10 MG TABLET (FP) PO SCH (11:07)
[2021-05-24] MEDS: TAMSULOSIN HCL 0.4 MG CAP PO SCH (11:07)
[2021-05-24] MEDS: amLODIPine BESYLATE 5 MG TABLET (FP) PO SCH (11:07)
[2021-05-24] MEDS: metoPROLOL SUCCINATE 25 MG TAB.SR.24H (FP) PO SCH ×2 (11:08→11:11)
[2021-05-24] MEDS: ASPIRIN 81 MG CHEWABLE TABLETS PO SCH (11:08)
[2021-05-24] MEDS: QUEtiapine FUMARATE 25 MG TABLET PO SCH (22:28)
[2021-05-25] MEDS ORDERED: PIPERACILLIN/TAZOBACTAM 3.375 GM VIAL IVPB ONE ×2 (01:19→08:40)
[2021-05-25] MEDS ORDERED: DEXTROSE 5%-WATER - 50 ML IVPB ONE ×2 (01:20→08:40)
[2021-05-25] MEDS: PIPERACILLIN/TAZOB 3.375 GM 3.375 GM in DEXTROSE 5%-WATER - 50 ML IVPB SCH ×2 (02:01→10:00)
[2021-05-25] MEDS: INSULIN SLIDING SCALE (NOVOLOG) 1 VIAL SQ SCH ×4 (06:19→22:42)
[2021-05-25] MEDS ORDERED: INSULIN (NOVOLOG) ASPART 100 UNITS/ML 10ML VIAL ONE (08:40)
[2021-05-25 08:48] LABS: BASO % 0.2 % (0-2.0); EOS % 0.4 % (0-4.5); HEMATOCRIT 27.1 % (35.4-49); HEMOGLOBIN 9.1 GM/dL (11.7-16.9); LYMPH % 21.7 % (8-40); MCH 29.1 pg (25.7-33.7); MCHC 33.6 g/dl (32.0-35.9); MEAN CELL VOLUME 86.6 fl (80-96); MEAN PLT VOLUME 8.1 fl (7.5-11.1); NEUT % 53.7 % (42.8-82.8); PLATELET COUNT 324 10^3/uL (134-434); RBC 3.13 M/mm3 (4.00-5.60); RDW 15.7 % (11.9-15.9); WHITE BLOOD COUNT 5.6 K/mm3 (4.0-10.0)
[2021-05-25 09:22] LABS: ALBUMIN 2.2 g/dl (3.4-5.0); CALCIUM 8.2 mg/dL (8.5-10.1)
[2021-05-25 09:23] LABS: BLOOD UREA NITROGEN 17.3 mg/dL (7-18)
[2021-05-25 09:25] LABS: CREATININE 0.7 mg/dL (0.55-1.3)
[2021-05-25 09:27] LABS: BILIRUBIN,TOTAL 0.9 mg/dL (0.2-1); TOT PROT 5.8 g/dl (6.4-8.2)
[2021-05-25 09:38] LABS: ANISOCYTOSIS 0; HELMET CELLS 0; HOWELL-JOLLY BODIES 0; MACROCYTOSIS 0; OVALOCYTE 0; PLATELET ESTIMATE NORMAL; ROULEAU 0; SICKELED CELLS 0; TARGET CELLS 0; TEAR DROP CELLS 0; TOXIC GRANULATION 0
[2021-05-25] MEDS: AMINO ACIDS/PROTEIN HYDROLYS 30 ML LIQUID.PKT PO SCH ×2 (09:57→16:31)
[2021-05-25] MEDS: metoPROLOL SUCCINATE 25 MG TAB.SR.24H (FP) PO SCH (09:58)
[2021-05-25] MEDS: TAMSULOSIN HCL 0.4 MG CAP PO SCH (09:58)
[2021-05-25] MEDS: ATORVASTATIN CA 10 MG TABLET (FP) PO SCH (09:58)
[2021-05-25] MEDS: LISINOPRIL 20 MG TABLET PO SCH (09:58)
[2021-05-25] MEDS: ASPIRIN 81 MG CHEWABLE TABLETS PO SCH (09:59)
[2021-05-25] MEDS: amLODIPine BESYLATE 5 MG TABLET (FP) PO SCH (10:00)
[2021-05-25] MEDS ORDERED: AMPICILLIN NA/SULBACTAM NA 3 GM VIAL ONE ×3 (15:01→21:53)
[2021-05-25] MEDS ORDERED: SODIUM CHLORIDE 100 ML IVPB ONE ×3 (15:01→21:53)
[2021-05-25] MEDS: AMPICILLIN NA/SULBACTAM NA 3 GM in SODIUM CHLORIDE 100 ML IVPB SCH ×2 (15:15→21:07)
[2021-05-25] MEDS: QUEtiapine FUMARATE 25 MG TABLET PO SCH (21:08)
[2021-05-26] MEDS: AMPICILLIN NA/SULBACTAM NA 3 GM in SODIUM CHLORIDE 100 ML IVPB SCH ×4 (03:20→20:18)
[2021-05-26] MEDS: INSULIN SLIDING SCALE (NOVOLOG) 1 VIAL SQ SCH ×4 (06:26→21:30)
[2021-05-26 08:38] LABS: HEMATOCRIT 27.7 % (35.4-49); HEMOGLOBIN 9.2 GM/dL (11.7-16.9); MCHC 33.3 g/dl (32.0-35.9); MEAN CELL VOLUME 87.2 fl (80-96); MEAN PLT VOLUME 7.6 fl (7.5-11.1); PLATELET COUNT 319 10^3/uL (134-434); RBC 3.18 M/mm3 (4.00-5.60); RDW 15.4 % (11.9-15.9); WHITE BLOOD COUNT 6.7 K/mm3 (4.0-10.0)
[2021-05-26] MEDS ORDERED: AMPICILLIN NA/SULBACTAM NA 3 GM VIAL ONE ×3 (09:06→20:06)
[2021-05-26] MEDS ORDERED: SODIUM CHLORIDE 100 ML IVPB ONE ×3 (09:07→20:06)
[2021-05-26 09:09] LABS: CALCIUM 8.5 mg/dL (8.5-10.1)
[2021-05-26 09:10] LABS: ALBUMIN 2.2 g/dl (3.4-5.0); BLOOD UREA NITROGEN 18.8 mg/dL (7-18)
[2021-05-26 09:13] LABS: CREATININE 0.7 mg/dL (0.55-1.3)
[2021-05-26 09:16] LABS: BILIRUBIN,TOTAL 1.3 mg/dL (0.2-1); TOT PROT 6.1 g/dl (6.4-8.2)
[2021-05-26] MEDS: AMINO ACIDS/PROTEIN HYDROLYS 30 ML LIQUID.PKT PO SCH ×2 (09:31→16:41)
[2021-05-26] MEDS: metoPROLOL SUCCINATE 25 MG TAB.SR.24H (FP) PO SCH (09:32)
[2021-05-26] MEDS: TAMSULOSIN HCL 0.4 MG CAP PO SCH (09:32)
[2021-05-26] MEDS: amLODIPine BESYLATE 5 MG TABLET (FP) PO SCH (09:32)
[2021-05-26] MEDS: ATORVASTATIN CA 10 MG TABLET (FP) PO SCH (09:33)
[2021-05-26] MEDS: LISINOPRIL 20 MG TABLET PO SCH (09:33)
[2021-05-26] MEDS: ASPIRIN 81 MG CHEWABLE TABLETS PO SCH (09:34)
[2021-05-26 11:49] LABS: ANISOCYTOSIS 0; MACROCYTOSIS 0; PLATELET ESTIMATE NORMAL
[2021-05-26] MEDS: QUEtiapine FUMARATE 25 MG TABLET PO SCH (21:27)
[2021-05-27] MEDS ORDERED: SODIUM CHLORIDE 100 ML IVPB ONE ×4 (01:20→21:19)
[2021-05-27] MEDS ORDERED: AMPICILLIN NA/SULBACTAM NA 3 GM VIAL ONE ×4 (01:20→21:18)
[2021-05-27] MEDS: AMPICILLIN NA/SULBACTAM NA 3 GM in SODIUM CHLORIDE 100 ML IVPB SCH ×4 (02:32→22:15)
[2021-05-27] MEDS: INSULIN SLIDING SCALE (NOVOLOG) 1 VIAL SQ SCH ×4 (06:19→22:18)
[2021-05-27] MEDS: LISINOPRIL 20 MG TABLET PO SCH (09:00)
[2021-05-27] MEDS: ASPIRIN 81 MG CHEWABLE TABLETS PO SCH (09:00)
[2021-05-27] MEDS: ATORVASTATIN CA 10 MG TABLET (FP) PO SCH (09:00)
[2021-05-27] MEDS: TAMSULOSIN HCL 0.4 MG CAP PO SCH (09:01)
[2021-05-27] MEDS: metoPROLOL SUCCINATE 25 MG TAB.SR.24H (FP) PO SCH (09:01)
[2021-05-27] MEDS: AMINO ACIDS/PROTEIN HYDROLYS 30 ML LIQUID.PKT PO SCH ×2 (09:02→17:12)
[2021-05-27] MEDS: amLODIPine BESYLATE 5 MG TABLET (FP) PO SCH (09:02)
[2021-05-27 09:10] LABS: BASO % 0.2 % (0-2.0); EOS % 0.1 % (0-4.5); HEMATOCRIT 24.8 % (35.4-49); LYMPH % 10.1 % (8-40); MCH 28.2 pg (25.7-33.7); MCHC 32.2 g/dl (32.0-35.9); MEAN CELL VOLUME 87.6 fl (80-96); MEAN PLT VOLUME 8.1 fl (7.5-11.1); MONO % 19.7 % (3.8-10.2); NEUT % 69.9 % (42.8-82.8); PLATELET COUNT 305 10^3/uL (134-434); RBC 2.83 M/mm3 (4.00-5.60); RDW 15.3 % (11.9-15.9); WHITE BLOOD COUNT 6.3 K/mm3 (4.0-10.0)
[2021-05-27 09:49] LABS: ALBUMIN 2.1 g/dl (3.4-5.0); BLOOD UREA NITROGEN 23.1 mg/dL (7-18); CALCIUM 8.5 mg/dL (8.5-10.1); CREATININE 0.7 mg/dL (0.55-1.3)
[2021-05-27 09:51] LABS: BILIRUBIN,TOTAL 0.8 mg/dL (0.2-1); TOT PROT 5.9 g/dl (6.4-8.2)
[2021-05-27] MEDS ORDERED: ENOXAPARIN NA (PORCINE) 40 MG/0.4 ML DISP.SYRIN SQ SCH (11:15)
[2021-05-27 12:11] VITALS: BMI 21.4
[2021-05-27] MEDS ORDERED: APIXABAN 5 MG TABLET PO ONE (21:15)
[2021-05-27] MEDS ORDERED: APIXABAN 5 MG TABLET PO SCH (22:00)
[2021-05-27] MEDS: QUEtiapine FUMARATE 25 MG TABLET PO SCH (22:15)
[2021-05-28] MEDS ORDERED: SODIUM CHLORIDE 100 ML IVPB ONE ×4 (01:55→20:14)
[2021-05-28] MEDS ORDERED: AMPICILLIN NA/SULBACTAM NA 3 GM VIAL ONE ×4 (01:55→20:14)
[2021-05-28] MEDS: AMPICILLIN NA/SULBACTAM NA 3 GM in SODIUM CHLORIDE 100 ML IVPB SCH ×4 (02:21→21:52)
[2021-05-28] MEDS: INSULIN SLIDING SCALE (NOVOLOG) 1 VIAL SQ SCH ×4 (06:01→21:54)
[2021-05-28 09:43] LABS: HEMATOCRIT 26.4 % (35.4-49); HEMOGLOBIN 8.8 GM/dL (11.7-16.9); MCH 28.8 pg (25.7-33.7); MCHC 33.4 g/dl (32.0-35.9); MEAN CELL VOLUME 86.1 fl (80-96); MEAN PLT VOLUME 7.7 fl (7.5-11.1); PLATELET COUNT 324 10^3/uL (134-434); RBC 3.06 M/mm3 (4.00-5.60); RDW 15.5 % (11.9-15.9); WHITE BLOOD COUNT 8.1 K/mm3 (4.0-10.0)
[2021-05-28] MEDS: AMINO ACIDS/PROTEIN HYDROLYS 30 ML LIQUID.PKT PO SCH ×2 (09:43→17:03)
[2021-05-28] MEDS: APIXABAN 5 MG TABLET PO SCH ×2 (09:43→21:53)
[2021-05-28] MEDS: LISINOPRIL 20 MG TABLET PO SCH (09:43)
[2021-05-28] MEDS: amLODIPine BESYLATE 5 MG TABLET (FP) PO SCH (09:43)
[2021-05-28] MEDS: ASPIRIN 81 MG CHEWABLE TABLETS PO SCH (09:44)
[2021-05-28] MEDS: metoPROLOL SUCCINATE 25 MG TAB.SR.24H (FP) PO SCH (09:44)
[2021-05-28] MEDS: TAMSULOSIN HCL 0.4 MG CAP PO SCH (09:44)
[2021-05-28] MEDS: ATORVASTATIN CA 10 MG TABLET (FP) PO SCH (09:44)
[2021-05-28 09:55] LABS: CALCIUM 8.5 mg/dL (8.5-10.1)
[2021-05-28 09:56] LABS: ALBUMIN 2.1 g/dl (3.4-5.0); BLOOD UREA NITROGEN 31.7 mg/dL (7-18)
[2021-05-28 09:59] LABS: CREATININE 0.7 mg/dL (0.55-1.3)
[2021-05-28 10:01] LABS: BILIRUBIN,TOTAL 0.7 mg/dL (0.2-1)
[2021-05-28 10:30] LABS: ANISOCYTOSIS 0; HELMET CELLS 0; HOWELL-JOLLY BODIES 0; MACROCYTOSIS 0; OVALOCYTE 0; PLATELET ESTIMATE NORMAL; ROULEAU 0; SICKELED CELLS 0; TARGET CELLS 0; TEAR DROP CELLS 0; TOXIC GRANULATION 0
[2021-05-28] MEDS: KCL 10 MEQ IVPB 10 MEQ/100 ML INFUS.BAG IVPB SCH ×3 (12:55→15:55)
[2021-05-28] MEDS ORDERED: DEXAMETHASONE SOD PHOSPHATE 10 MG/1 ML VIAL IVPUSH ONE (13:02)
[2021-05-28] MEDS: QUEtiapine FUMARATE 25 MG TABLET PO SCH (22:00)
[2021-05-29] MEDS ORDERED: SODIUM CHLORIDE 100 ML IVPB ONE ×3 (00:34→15:03)
[2021-05-29] MEDS ORDERED: AMPICILLIN NA/SULBACTAM NA 3 GM VIAL ONE ×3 (00:34→15:03)
[2021-05-29] MEDS: AMPICILLIN NA/SULBACTAM NA 3 GM in SODIUM CHLORIDE 100 ML IVPB SCH ×3 (03:22→15:11)
[2021-05-29] MEDS: INSULIN SLIDING SCALE (NOVOLOG) 1 VIAL SQ SCH ×4 (05:59→21:54)
[2021-05-29] MEDS: AMINO ACIDS/PROTEIN HYDROLYS 30 ML LIQUID.PKT PO SCH ×2 (08:55→18:03)
[2021-05-29] MEDS: TAMSULOSIN HCL 0.4 MG CAP PO SCH (08:55)
[2021-05-29] MEDS: APIXABAN 5 MG TABLET PO SCH ×2 (09:00→21:48)
[2021-05-29] MEDS: metoPROLOL SUCCINATE 25 MG TAB.SR.24H (FP) PO SCH (09:00)
[2021-05-29] MEDS: amLODIPine BESYLATE 5 MG TABLET (FP) PO SCH (09:00)
[2021-05-29] MEDS: LISINOPRIL 20 MG TABLET PO SCH (09:00)
[2021-05-29] MEDS: ASPIRIN 81 MG CHEWABLE TABLETS PO SCH (09:00)
[2021-05-29] MEDS: ATORVASTATIN CA 10 MG TABLET (FP) PO SCH (09:03)
[2021-05-29 13:47] LABS: BLOOD UREA NITROGEN 39.7 mg/dL (7-18)
[2021-05-29 13:51] LABS: CREATININE 0.9 mg/dL (0.55-1.3)
[2021-05-29] MEDS: QUEtiapine FUMARATE 25 MG TABLET PO SCH (21:48)
[2021-05-30] MEDS: INSULIN SLIDING SCALE (NOVOLOG) 1 VIAL SQ SCH ×4 (06:14→21:27)
[2021-05-30] MEDS: metoPROLOL SUCCINATE 25 MG TAB.SR.24H (FP) PO SCH (09:13)
[2021-05-30] MEDS: ATORVASTATIN CA 10 MG TABLET (FP) PO SCH (09:13)
[2021-05-30] MEDS: LISINOPRIL 20 MG TABLET PO SCH (09:13)
[2021-05-30] MEDS: amLODIPine BESYLATE 5 MG TABLET (FP) PO SCH (09:13)
[2021-05-30] MEDS: TAMSULOSIN HCL 0.4 MG CAP PO SCH (09:13)
[2021-05-30] MEDS: APIXABAN 5 MG TABLET PO SCH ×2 (09:13→21:06)
[2021-05-30] MEDS: AMINO ACIDS/PROTEIN HYDROLYS 30 ML LIQUID.PKT PO SCH ×2 (09:14→16:54)
[2021-05-30] MEDS: QUEtiapine FUMARATE 25 MG TABLET PO SCH (21:06)
[2021-05-30] MEDS ORDERED: INSULIN (NOVOLOG) ASPART 100 UNITS/ML 10ML VIAL ONE (21:56)
[2021-05-31] MEDS: INSULIN SLIDING SCALE (NOVOLOG) 1 VIAL SQ SCH ×4 (06:13→22:00)
[2021-05-31] MEDS: APIXABAN 5 MG TABLET PO SCH ×2 (09:52→21:36)
[2021-05-31] MEDS: amLODIPine BESYLATE 5 MG TABLET (FP) PO SCH (09:52)
[2021-05-31] MEDS: AMINO ACIDS/PROTEIN HYDROLYS 30 ML LIQUID.PKT PO SCH ×2 (09:52→17:37)
[2021-05-31] MEDS: metoPROLOL SUCCINATE 25 MG TAB.SR.24H (FP) PO SCH (09:52)
[2021-05-31] MEDS: ATORVASTATIN CA 10 MG TABLET (FP) PO SCH (09:52)
[2021-05-31] MEDS: TAMSULOSIN HCL 0.4 MG CAP PO SCH (09:52)
[2021-05-31] MEDS: LISINOPRIL 20 MG TABLET PO SCH (09:52)
[2021-05-31] MEDS ORDERED: SODIUM CHLORIDE 1,000 ML IV SCH (13:45)
[2021-05-31] MEDS: MIRTAZAPINE 15 MG TABLET (FP) PO SCH (15:35)
[2021-05-31] MEDS: AMOX TR/POT CLAV 875MG/125MG TABLETS (FP) PO SCH (17:37)
[2021-05-31] MEDS ORDERED: IRON SUCROSE INJECTION 200 MG in SODIUM CHLORIDE 90 ML IVPB ONE (18:19)
[2021-05-31] MEDS: QUEtiapine FUMARATE 25 MG TABLET PO SCH (21:36)
[2021-06-01] MEDS: INSULIN SLIDING SCALE (NOVOLOG) 1 VIAL SQ SCH ×4 (06:29→21:40)
[2021-06-01] MEDS: AMINO ACIDS/PROTEIN HYDROLYS 30 ML LIQUID.PKT PO SCH ×2 (09:28→17:45)
[2021-06-01] MEDS: MIRTAZAPINE 15 MG TABLET (FP) PO SCH (09:29)
[2021-06-01] MEDS: LISINOPRIL 20 MG TABLET PO SCH (09:29)
[2021-06-01] MEDS: metoPROLOL SUCCINATE 25 MG TAB.SR.24H (FP) PO SCH (09:29)
[2021-06-01] MEDS: amLODIPine BESYLATE 5 MG TABLET (FP) PO SCH (09:29)
[2021-06-01] MEDS: AMOX TR/POT CLAV 875MG/125MG TABLETS (FP) PO SCH ×2 (09:29→17:45)
[2021-06-01] MEDS: TAMSULOSIN HCL 0.4 MG CAP PO SCH (09:29)
[2021-06-01] MEDS: ATORVASTATIN CA 10 MG TABLET (FP) PO SCH (09:29)
[2021-06-01] MEDS: APIXABAN 5 MG TABLET PO SCH ×2 (09:29→21:34)
[2021-06-01 09:41] LABS: BASO % 0.1 % (0-2.0); EOS % 0.1 % (0-4.5); HEMATOCRIT 27.5 % (35.4-49); HEMOGLOBIN 8.8 GM/dL (11.7-16.9); LYMPH % 10.4 % (8-40); MCH 27.7 pg (25.7-33.7); MCHC 32.1 g/dl (32.0-35.9); MEAN CELL VOLUME 86.3 fl (80-96); MEAN PLT VOLUME 7.9 fl (7.5-11.1); NEUT % 73.4 % (42.8-82.8); PLATELET COUNT 259 10^3/uL (134-434); RBC 3.19 M/mm3 (4.00-5.60); RDW 16.4 % (11.9-15.9); WHITE BLOOD COUNT 6.6 K/mm3 (4.0-10.0)
[2021-06-01 10:02] LABS: CALCIUM 8.2 mg/dL (8.5-10.1)
[2021-06-01 10:03] LABS: BLOOD UREA NITROGEN 20.9 mg/dL (7-18)
[2021-06-01 10:06] LABS: CREATININE 0.5 mg/dL (0.55-1.3)
[2021-06-01] MEDS ORDERED: SODIUM CHLORIDE 0.45% 1,000 ML IV SCH ×2 (11:30)
[2021-06-01 18:54] LABS: CALCIUM 8.8 mg/dL (8.5-10.1)
[2021-06-01 18:55] LABS: BLOOD UREA NITROGEN 20.3 mg/dL (7-18)
[2021-06-01 18:58] LABS: CREATININE 0.7 mg/dL (0.55-1.3)
[2021-06-01] MEDS ORDERED: INSULIN (NOVOLOG) ASPART 100 UNITS/ML 10ML VIAL ONE (20:55)
[2021-06-01] MEDS: QUEtiapine FUMARATE 25 MG TABLET PO SCH (21:34)
[2021-06-02] MEDS: INSULIN SLIDING SCALE (NOVOLOG) 1 VIAL SQ SCH ×4 (06:14→22:10)
[2021-06-02] MEDS: LISINOPRIL 20 MG TABLET PO SCH (09:08)
[2021-06-02] MEDS: APIXABAN 5 MG TABLET PO SCH ×2 (09:08→22:10)
[2021-06-02] MEDS: ATORVASTATIN CA 10 MG TABLET (FP) PO SCH (09:08)
[2021-06-02] MEDS: amLODIPine BESYLATE 5 MG TABLET (FP) PO SCH (09:08)
[2021-06-02] MEDS: AMOX TR/POT CLAV 875MG/125MG TABLETS (FP) PO SCH ×2 (09:08→17:35)
[2021-06-02] MEDS: metoPROLOL SUCCINATE 25 MG TAB.SR.24H (FP) PO SCH (09:08)
[2021-06-02] MEDS: TAMSULOSIN HCL 0.4 MG CAP PO SCH (09:08)
[2021-06-02] MEDS: MIRTAZAPINE 15 MG TABLET (FP) PO SCH (09:09)
[2021-06-02] MEDS: AMINO ACIDS/PROTEIN HYDROLYS 30 ML LIQUID.PKT PO SCH ×2 (09:09→17:35)
[2021-06-02 10:15] LABS: BASO % 0.1 % (0-2.0); EOS % 0.5 % (0-4.5); HEMATOCRIT 26.4 % (35.4-49); HEMOGLOBIN 8.3 GM/dL (11.7-16.9); LYMPH % 14.2 % (8-40); MCH 27.4 pg (25.7-33.7); MCHC 31.4 g/dl (32.0-35.9); MEAN CELL VOLUME 87.2 fl (80-96); MEAN PLT VOLUME 8.6 fl (7.5-11.1); MONO % 13.9 % (3.8-10.2); NEUT % 71.3 % (42.8-82.8); PLATELET COUNT 254 10^3/uL (134-434); RBC 3.03 M/mm3 (4.00-5.60); WHITE BLOOD COUNT 9.7 K/mm3 (4.0-10.0)
[2021-06-02 10:43] LABS: CALCIUM 8.5 mg/dL (8.5-10.1)
[2021-06-02 10:44] LABS: BLOOD UREA NITROGEN 21.5 mg/dL (7-18)
[2021-06-02 10:47] LABS: CREATININE 0.6 mg/dL (0.55-1.3)
[2021-06-02 14:16] LABS: BLOOD UREA NITROGEN 21.9 mg/dL (7-18); CALCIUM 8.5 mg/dL (8.5-10.1)
[2021-06-02 14:20] LABS: CREATININE 0.7 mg/dL (0.55-1.3)
[2021-06-02] MEDS ORDERED: IRON SUCROSE INJECTION 200 MG in SODIUM CHLORIDE 90 ML IVPB ONE (15:15)
[2021-06-02] MEDS ORDERED: INSULIN (NOVOLOG) ASPART 100 UNITS/ML 10ML VIAL ONE (17:52)
[2021-06-02] MEDS: QUEtiapine FUMARATE 25 MG TABLET PO SCH (22:10)
[2021-06-03] MEDS ORDERED: INSULIN (NOVOLOG) ASPART 100 UNITS/ML 10ML VIAL ONE ×3 (05:48→21:25)
[2021-06-03] MEDS: INSULIN SLIDING SCALE (NOVOLOG) 1 VIAL SQ SCH ×4 (07:16→22:34)
[2021-06-03] MEDS: AMOX TR/POT CLAV 875MG/125MG TABLETS (FP) PO SCH ×2 (08:58→17:54)
[2021-06-03] MEDS: TAMSULOSIN HCL 0.4 MG CAP PO SCH (08:58)
[2021-06-03] MEDS: AMINO ACIDS/PROTEIN HYDROLYS 30 ML LIQUID.PKT PO SCH ×2 (08:58→17:53)
[2021-06-03] MEDS: amLODIPine BESYLATE 5 MG TABLET (FP) PO SCH (08:59)
[2021-06-03] MEDS: APIXABAN 2.5 MG TABLET PO SCH ×2 (08:59→22:29)
[2021-06-03] MEDS: LISINOPRIL 20 MG TABLET PO SCH (08:59)
[2021-06-03] MEDS: metoPROLOL SUCCINATE 25 MG TAB.SR.24H (FP) PO SCH (08:59)
[2021-06-03 11:20] LABS: BASO % 0.1 % (0-2.0); EOS % 0.4 % (0-4.5); HEMATOCRIT 29.3 % (35.4-49); HEMOGLOBIN 9.3 GM/dL (11.7-16.9); LYMPH % 8.2 % (8-40); MCH 27.5 pg (25.7-33.7); MCHC 31.6 g/dl (32.0-35.9); MEAN PLT VOLUME 8.6 fl (7.5-11.1); MONO % 13.2 % (3.8-10.2); NEUT % 78.1 % (42.8-82.8); PLATELET COUNT 240 10^3/uL (134-434); RBC 3.37 M/mm3 (4.00-5.60); RDW 16.6 % (11.9-15.9); WHITE BLOOD COUNT 12.4 K/mm3 (4.0-10.0)
[2021-06-03 11:34] LABS: BLOOD UREA NITROGEN 27.9 mg/dL (7-18)
[2021-06-03 11:38] LABS: CREATININE 0.8 mg/dL (0.55-1.3)
[2021-06-03] MEDS ORDERED: SODIUM CHLORIDE 0.45% 1,000 ML IV SCH ×2 (12:45→12:58)
[2021-06-03 20:16] LABS: EPI CELLS 25 /uL (0-25.1); HYALINE CASTS 5 /uL (0-3.1); URINE APPEARANCE TURBID; URINE BILIRUBIN 1+ (NEGATIVE); URINE COLOR RED; URINE GLUCOSE (UA) NEGATIVE (NEGATIVE); URINE KETONE NEGATIVE (NEGATIVE); URINE LEUK ESTERASE 2+ (NEGATIVE); URINE NITRITE POSITIVE (NEGATIVE); URINE PROTEIN 2+ (NEGATIVE); URINE RBC 23690 /uL (0-23.9); URINE WBC 419 /uL (0-25.8)
[2021-06-03 20:34] LABS: CALCIUM 8.9 mg/dL (8.5-10.1)
[2021-06-03 20:35] LABS: BLOOD UREA NITROGEN 34.8 mg/dL (7-18)
[2021-06-03 20:38] LABS: CREATININE 0.8 mg/dL (0.55-1.3)
[2021-06-03] MEDS: MIRTAZAPINE 15 MG TABLET (FP) PO SCH (22:28)
[2021-06-03] MEDS: QUEtiapine FUMARATE 25 MG TABLET PO SCH (22:28)
[2021-06-03] MEDS: ATORVASTATIN CA 10 MG TABLET (FP) PO SCH (22:28)
[2021-06-04] MEDS: INSULIN SLIDING SCALE (NOVOLOG) 1 VIAL SQ SCH ×4 (06:53→22:35)
[2021-06-04 09:46] LABS: BASO % 0.1 % (0-2.0); EOS % 0.9 % (0-4.5); HEMATOCRIT 25.7 % (35.4-49); HEMOGLOBIN 8.1 GM/dL (11.7-16.9); LYMPH % 16.5 % (8-40); MCH 27.4 pg (25.7-33.7); MCHC 31.4 g/dl (32.0-35.9); MEAN CELL VOLUME 87.1 fl (80-96); MEAN PLT VOLUME 9.2 fl (7.5-11.1); MONO % 16.1 % (3.8-10.2); NEUT % 66.4 % (42.8-82.8); PLATELET COUNT 197 10^3/uL (134-434); RBC 2.95 M/mm3 (4.00-5.60); RDW 16.5 % (11.9-15.9); WHITE BLOOD COUNT 8.9 K/mm3 (4.0-10.0)
[2021-06-04] MEDS ORDERED: APIXABAN 2.5 MG TABLET PO SCH (10:00)
[2021-06-04 10:06] LABS: CALCIUM 8.2 mg/dL (8.5-10.1)
[2021-06-04 10:08] LABS: ALBUMIN 1.9 g/dl (3.4-5.0); BLOOD UREA NITROGEN 31.9 mg/dL (7-18)
[2021-06-04 10:09] LABS: CREATININE 0.6 mg/dL (0.55-1.3)
[2021-06-04 10:12] LABS: BILIRUBIN,TOTAL 0.7 mg/dL (0.2-1); TOT PROT 5.4 g/dl (6.4-8.2)
[2021-06-04] MEDS: TAMSULOSIN HCL 0.4 MG CAP PO SCH (10:15)
[2021-06-04] MEDS: AMOX TR/POT CLAV 875MG/125MG TABLETS (FP) PO SCH ×2 (10:15→16:37)
[2021-06-04] MEDS: AMINO ACIDS/PROTEIN HYDROLYS 30 ML LIQUID.PKT PO SCH ×2 (10:15→16:37)
[2021-06-04] MEDS: LISINOPRIL 20 MG TABLET PO SCH (10:16)
[2021-06-04] MEDS: metoPROLOL SUCCINATE 25 MG TAB.SR.24H (FP) PO SCH (10:16)
[2021-06-04] MEDS: amLODIPine BESYLATE 5 MG TABLET (FP) PO SCH (10:16)
[2021-06-04] MEDS ORDERED: POTASSIUM CHLORIDE ORAL LIQUID 20 MEQ/15 ML PO ONE (14:45)
[2021-06-04] MEDS: DEXTROSE 5%-WATER - 1,000 ML IV SCH (16:35)
[2021-06-04] MEDS: KCL 10 MEQ IVPB 10 MEQ/100 ML INFUS.BAG IVPB SCH ×2 (16:38→17:40)
[2021-06-04] MEDS: MIRTAZAPINE 15 MG TABLET (FP) PO SCH (22:34)
[2021-06-04] MEDS: QUEtiapine FUMARATE 25 MG TABLET PO SCH (22:35)
[2021-06-04] MEDS: ATORVASTATIN CA 10 MG TABLET (FP) PO SCH (22:35)
[2021-06-05] MEDS: DEXTROSE 5%-WATER - 1,000 ML IV SCH (05:07)
[2021-06-05] MEDS: INSULIN SLIDING SCALE (NOVOLOG) 1 VIAL SQ SCH ×3 (06:01→17:49)
[2021-06-05 07:47] LABS: BASO % 0.1 % (0-2.0); EOS % 0.9 % (0-4.5); HEMATOCRIT 23.9 % (35.4-49); HEMOGLOBIN 7.4 GM/dL (11.7-16.9); LYMPH % 17.5 % (8-40); MCH 27.2 pg (25.7-33.7); MCHC 31.2 g/dl (32.0-35.9); MEAN CELL VOLUME 87.2 fl (80-96); MEAN PLT VOLUME 9.2 fl (7.5-11.1); MONO % 20.1 % (3.8-10.2); NEUT % 61.4 % (42.8-82.8); PLATELET COUNT 179 10^3/uL (134-434); RBC 2.74 M/mm3 (4.00-5.60); RDW 17.1 % (11.9-15.9); WHITE BLOOD COUNT 7.1 K/mm3 (4.0-10.0)
[2021-06-05] MEDS: AMOX TR/POT CLAV 875MG/125MG TABLETS (FP) PO SCH (08:00)
[2021-06-05 08:06] LABS: CALCIUM 7.8 mg/dL (8.5-10.1)
[2021-06-05 08:07] LABS: ALBUMIN 1.6 g/dl (3.4-5.0); BLOOD UREA NITROGEN 31.2 mg/dL (7-18); MAGNESIUM 2.2 mg/dL (1.8-2.4)
[2021-06-05 08:10] LABS: CREATININE 0.6 mg/dL (0.55-1.3); PHOSPHOROUS 2.2 mg/dL (2.5-4.9)
[2021-06-05 08:11] LABS: BILIRUBIN,TOTAL 0.7 mg/dL (0.2-1); TOT PROT 4.9 g/dl (6.4-8.2)
[2021-06-05] MEDS: LISINOPRIL 20 MG TABLET PO SCH (10:24)
[2021-06-05] MEDS: amLODIPine BESYLATE 5 MG TABLET (FP) PO SCH (10:24)
[2021-06-05] MEDS: AMINO ACIDS/PROTEIN HYDROLYS 30 ML LIQUID.PKT PO SCH ×2 (10:25→17:49)
[2021-06-05] MEDS: metoPROLOL SUCCINATE 25 MG TAB.SR.24H (FP) PO SCH (10:25)
[2021-06-05] MEDS: TAMSULOSIN HCL 0.4 MG CAP PO SCH (10:25)
[2021-06-05] MEDS ORDERED: DEXTROSE 5%-0.45% SALINE 1,000 ML IV SCH (10:30)
[2021-06-05] MEDS ORDERED: FLUCONAZOLE 100 MG TABLET (UD) PO SCH (11:30)
[2021-06-05] MEDS ORDERED: MIDAZOLAM HCL 2 MG/2 ML SINGLE DOSE VIAL ONE (12:39)
[2021-06-05] MEDS ORDERED: PROPOFOL 20 ML ONE ×2 (12:39→12:53)
[2021-06-05] MEDS ORDERED: ETOMIDATE 20 MG/10 ML AMPUL IVPUSH ONE (12:48)
[2021-06-05] MEDS ORDERED: ceFAZolin SODIUM 1 GM VIAL IVPB ONE (13:10)
[2021-06-05] MEDS ORDERED: ceFAZolin SODIUM 1 GM VIAL ONE (13:21)
[2021-06-05] MEDS ORDERED: ONDANSETRON 4 MG/2 ML VIAL IVPUSH PRN (13:47)
[2021-06-05] MEDS ORDERED: LACTATED RINGERS SOLUTION 1,000 ML IV SCH (14:00)
[2021-06-05] MEDS: DEXTROSE 5%-0.45% SALINE 1,000 ML IV SCH (15:00)
[2021-06-05] MEDS ORDERED: PIPERACILLIN/TAZOBACTAM 3.375 GM VIAL IVPB ONE (17:06)
[2021-06-05] MEDS ORDERED: DEXTROSE 5%-WATER - 50 ML IVPB ONE (17:06)
[2021-06-05] MEDS: PIPERACILLIN/TAZOB 3.375 GM 3.375 GM in DEXTROSE 5%-WATER - 50 ML IVPB SCH (17:49)
[2021-06-05] MEDS ORDERED: PIPERACILLIN/TAZOB 3.375 GM 3.375 GM in DEXTROSE 5%-WATER - 50 ML IVPB SCH (18:00)
[2021-06-05] MEDS ORDERED: MIRTAZAPINE 15 MG TABLET (FP) PO SCH (22:00)
[2021-06-05] MEDS ORDERED: ATORVASTATIN CA 10 MG TABLET (FP) PO SCH (22:00)
[2021-06-05] MEDS ORDERED: INSULIN (NOVOLOG) ASPART 100 UNITS/ML 10ML VIAL ONE (23:44)
[2021-06-06] MEDS: INSULIN SLIDING SCALE (NOVOLOG) 1 VIAL SQ SCH ×4 (00:43→16:33)
[2021-06-06] MEDS ORDERED: DEXTROSE 5%-WATER - 50 ML IVPB ONE ×2 (01:59→10:12)
[2021-06-06] MEDS ORDERED: PIPERACILLIN/TAZOBACTAM 3.375 GM VIAL IVPB ONE ×2 (01:59→10:12)
[2021-06-06] MEDS: PIPERACILLIN/TAZOB 3.375 GM 3.375 GM in DEXTROSE 5%-WATER - 50 ML IVPB SCH ×2 (02:05→10:20)
[2021-06-06] MEDS: DEXTROSE 5%-0.45% SALINE 1,000 ML IV SCH ×2 (06:36→14:00)
[2021-06-06] MEDS: AMINO ACIDS/PROTEIN HYDROLYS 30 ML LIQUID.PKT PO SCH ×2 (08:20→17:29)
[2021-06-06] MEDS ORDERED: TAMSULOSIN HCL 0.4 MG CAP PO SCH (08:30)
[2021-06-06 08:53] LABS: BASO % 0.2 % (0-2.0); EOS % 0.5 % (0-4.5); HEMATOCRIT 31.4 % (35.4-49); LYMPH % 13.3 % (8-40); MCH 27.6 pg (25.7-33.7); MCHC 31.7 g/dl (32.0-35.9); MEAN CELL VOLUME 87.2 fl (80-96); MEAN PLT VOLUME 9.4 fl (7.5-11.1); MONO % 16.7 % (3.8-10.2); NEUT % 69.3 % (42.8-82.8); PLATELET COUNT 193 10^3/uL (134-434); RBC 3.61 M/mm3 (4.00-5.60); RDW 16.7 % (11.9-15.9); WHITE BLOOD COUNT 8.3 K/mm3 (4.0-10.0)
[2021-06-06 09:07] LABS: BLOOD UREA NITROGEN 22.1 mg/dL (7-18); CALCIUM 8.2 mg/dL (8.5-10.1)
[2021-06-06 09:11] LABS: CREATININE 0.6 mg/dL (0.55-1.3)
[2021-06-06] MEDS ORDERED: LISINOPRIL 20 MG TABLET PO SCH (10:00)
[2021-06-06] MEDS ORDERED: amLODIPine BESYLATE 5 MG TABLET (FP) PO SCH (10:00)
[2021-06-06] MEDS ORDERED: metoPROLOL SUCCINATE 25 MG TAB.SR.24H (FP) PO SCH (10:00)
[2021-06-06 15:42] VITALS: BP 112/53; PULSE 73; TEMP 97.9
== END 2021-06-06 23:02 | disposition expired | DRG 853 ==
LOC: JER 10:29 → JERBED 15:58 → J7W 21:58 → J8W 05-26 19:00 → OBSVTOIN 05-27 08:08
PROVIDERS: ADMIT Internal Medicine; ATTEND Internal Medicine
PROC: 0T5B8ZZ Destruction of Bladder, Via Natural or Artificial Opening Endoscopic (ICD-10-PCS; 2021-06-05)
PROC: 0TBB8ZX Excision of Bladder, Via Natural or Artificial Opening Endoscopic, Diagnostic (ICD-10-PCS; 2021-06-05)
PROC: 0T9B80Z Drainage of Bladder with Drainage Device, Via Natural or Artificial Opening Endoscopic (ICD-10-PCS; 2021-06-05)
PROC: 0TCB8ZZ Extirpation of Matter from Bladder, Via Natural or Artificial Opening Endoscopic (ICD-10-PCS; 2021-06-05)
PROC: 3E1K78Z Irrigation of Genitourinary Tract using Irrigating Substance, Via Natural or Artificial Opening (ICD-10-PCS; principal; 2021-06-05 13:00)
PROC: 5A12012 Performance of Cardiac Output, Single, Manual (ICD-10-PCS; 2021-06-06)
DX: A41.59 Other Gram-negative sepsis (principal); G93.41 Metabolic encephalopathy; E87.1 Hypo-osmolality and hyponatremia; E87.2 Acidosis; N39.0 Urinary tract infection, site not specified; I45.2 Bifascicular block; I82.622 Acute embolism and thrombosis of deep veins of left upper extremity; E87.0 Hyperosmolality and hypernatremia; D68.318 Other hemorrhagic disorder due to intrinsic circulating anticoagulants, antibodies, or inhibitors; I50.22 Chronic systolic (congestive) heart failure; I11.0 Hypertensive heart disease with heart failure; E78.5 Hyperlipidemia, unspecified; I25.10 Atherosclerotic heart disease of native coronary artery without angina pectoris; D50.9 Iron deficiency anemia, unspecified; H40.9 Unspecified glaucoma; R07.89 Other chest pain; F03.90 Unspecified dementia, unspecified severity, without behavioral disturbance, psychotic disturbance, mood disturbance, and anxiety; R31.0 Gross hematuria; N32.89 Other specified disorders of bladder; I46.9 Cardiac arrest, cause unspecified; E11.51 Type 2 diabetes mellitus with diabetic peripheral angiopathy without gangrene; E11.65 Type 2 diabetes mellitus with hyperglycemia; B96.1 Klebsiella pneumoniae [K. pneumoniae] as the cause of diseases classified elsewhere; B95.2 Enterococcus as the cause of diseases classified elsewhere; I48.0 Paroxysmal atrial fibrillation; W18.39XA Other fall on same level, initial encounter; Y92.098 Other place in other non-institutional residence as the place of occurrence of the external cause; Z95.0 Presence of cardiac pacemaker; Z95.1 Presence of aortocoronary bypass graft; Z66 Do not resuscitate
CPT/HCPCS: 36415; 36430; 70450-TC; 71045-TC-FY; 72125-TC; 72131-TC; 74178-TC; 76775-TC; 76856-TC; 80048; 80053; 80307; 81003; 82140; 82550; 82553; 82607; 82728; 82803; 82962; 83540; 83550; 83605; 83735; 83880; 84100; 84443; 84484; 85025; 85027; 85610; 86780; 86850; 86900; 86901; 86922; 87040; 87077; 87086; 87186; 87804; 88108; 88305-TC; 93005; 93010; 93225; 93226; 93306-TC; 93971; 94760; 97116-GP; 97162-GP; 99285-25; C9803-CS; G0378; J1100; J1756; P9058; U0003; U0005